=== PATIENT | female | born 1970 ===

== ENCOUNTER → 2020-07-14 12:03 | Outpatient (BNVA) | payer BC, SELFPAY | PROVIDERS: PCP Internal Medicine Geriatric Medicine; Referring Provider Internal Medicine Geriatric Medicine; Visit Provider Obstetrics & Gynecology | DX: Z76.89 Persons encountering health services in other specified circumstances (principal) ==

== ENCOUNTER → 2020-12-31 09:56 | Outpatient (BNVA) | payer BC, SELFPAY | PROVIDERS: PCP Internal Medicine Geriatric Medicine; Visit Provider Advanced Practice Midwife ==

== ENCOUNTER 2021-05-15 07:09 | Outpatient (REF) | payer BC, SELFPAY ==
[2021-05-15 07:38] LABS: Hematocrit 37.1 % (37-47); Hemoglobin 12.8 g/dl (12.0-16.0); Mean Corpuscular HGB Conc 34.5 g/dl (31.0-35.0); Mean Corpuscular Hemoglobin 31.2 pg (27.0-33.0); Mean Corpuscular Volume 90.5 fL (80-98); Mean Platelet Volume 10.3 fL (9.4-12.3); Platelet Count 187 X10*3/uL (160-400); Red Cell Distribution Width 11.7 % (11.0-16.0)
[2021-05-15 08:21] LABS: Alanine Aminotransferase 12 U/L (0-31); Albumin Level 4.2 g/dL (3.5-5.0); Alkaline Phosphatase 43 U/L (39-117); Anion Gap 14 (12-20); Aspartate Amino Transferase 12 U/L (5-31); Bilirubin Total 0.7 mg/dL (0.0-1.0); Blood Urea Nitrogen 15 mg/dL (9-16); Carbon Dioxide 23 mmol/L (22-29); Chloride 107 mmol/L (96-108); Cholesterol 163 mg/dL; Estimated Glomerular Filt Rate > 60; Glucose Random 98 mg/dL (60-115); HDL Cholesterol 54 mg/dL; Potassium 4.5 mmol/L (3.3-5.1); Sodium 139 mmol/L (135-145); Total Protein 6.8 g/dL (6.5-8.0)
[2021-05-15 08:25] LABS: LDL Cholesterol Calculated 99 mg/dl; Triglycerides 50 mg/dL
[2021-05-18 22:22] LABS: Protein S Activity rflx Tot&Fr 78 % (60-140)
== END 2021-05-15 07:10 | disposition home or self-care (01) ==
LOC: HO.LAB 07:09
PROVIDERS: PCP Internal Medicine Geriatric Medicine; Visit Provider Internal Medicine Geriatric Medicine
DX: Z00.00 Encounter for general adult medical examination without abnormal findings (principal); Z13.1 Encounter for screening for diabetes mellitus; Z13.220 Encounter for screening for lipoid disorders; Z83.2 Family history of diseases of the blood and blood-forming organs and certain disorders involving the immune mechanism
CPT/HCPCS: 36415; 80053; 80061; 85027; 85305; 85306

== ENCOUNTER → 2022-01-01 08:03 | Outpatient (BNVA) | payer BC, SELFPAY | PROVIDERS: PCP Internal Medicine Geriatric Medicine; Visit Provider Advanced Practice Midwife | DX: Z13.89 Encounter for screening for other disorder (principal) ==

== ENCOUNTER → 2023-01-07 08:00 | Outpatient (BNVA) | payer BC, SELFPAY | PROVIDERS: PCP Internal Medicine Geriatric Medicine; Visit Provider Advanced Practice Midwife | DX: Z13.89 Encounter for screening for other disorder (principal) ==

== ENCOUNTER 2023-01-20 10:40 | Outpatient (REF) | payer BC, SELFPAY ==
--- NOTE | ~2023-01-20 | US_ITS ---
EXAMINATION: US PELVIS COMPLETE CLINICAL INFORMATION: Multiple uterine fibroids; the patient is currently having her menstrual period. COMPARISON: Pelvic ultrasound dated 06/11/2020. TECHNIQUE: Transabdominal and transvaginal imaging were performed. FINDINGS: The uterus is of normal size and echogenicity, measuring 11.6 x 5.6 x 7.3 cm. The uterus is anteverted and anteflexed. A regular, homogeneous endometrium is identified measuring 0.6 cm. FIBROIDS: There are 5 dominant fibroids seen. 1. Location: Rightward body, myometrial. Size: 2.6 x 2.1 x 2.9 cm. Prior: Not seen. Fibroid characteristics: Hypoechoic 2. Location: Anterior fundus, myometrial. Size: 2.4 x 2.4 x 2.5 cm. Prior: 1.5 x 1.1 x 1.3 cm. Fibroid characteristics: Isoechoic 3. Location: Posterior body, subendometrial. Size: 1.8 x 1.9 x 1.9 cm. Prior: Not seen. Fibroid characteristics: Heterogeneous echotexture, with shadowing calcifications 4. Location: Posterior lower body, myometrial. Size: 2.1 x 1.7 x 1.3 cm. Prior: 1.6 x 1.3 x 1.5 cm. Fibroid characteristics: Heterogeneously hypoechoic 5. Location: Leftward body, subserosal. Size: 1.4 x 1.6 x 1.4 cm. Prior: 1.2 x 1.1 x 1.3 cm. Fibroid characteristics: Heterogeneous echotexture The right ovary is nonvisualized. The left ovary is normal in echotexture, measuring 7.2 x 3.9 x 4.7 cm for a volume of 69.1 mL. The left ovary contains a 5.7 x 3.3 x 3.3 cm lobulated, simple cyst. There is no pelvic free fluid. US/US pelvic and transvaginal IMPRESSION: 1. Multiple uterine fibroids are seen, as detailed. 2. The right ovary is not visualized. 3. A 5.7 cm in maximal diameter simple, lobulated right ovarian cyst is newly seen. Recommend repeat ultrasound examination in 6-12 months for growth rate assessment.
== END 2023-01-20 10:41 | disposition home or self-care (01) ==
LOC: HO.US 10:40
PROVIDERS: PCP Internal Medicine Geriatric Medicine; Visit Provider Advanced Practice Midwife
DX: Z86.018 Personal history of other benign neoplasm (principal)
CPT/HCPCS: 76830; 76856

== ENCOUNTER 2023-01-28 08:49 | Outpatient (REF) | payer BC, SELFPAY ==
--- NOTE | ~2023-01-28 | XR_ITS ---
EXAMINATION: XR SHOULDER, RIGHT CLINICAL INFORMATION: Pain. COMPARISON: None available. TECHNIQUE: AP external rotation, Grashey, scapular Y, and axillary views of the right shoulder. FINDINGS: Bony alignment and mineralization are normal. The glenohumeral joint is intact. The acromioclavicular and coracoclavicular intervals are normal. Small, well marginated subcortical cysts are noted of the greater tuberosity of the proximal right humerus. No fracture or dislocation is seen. There is no abnormal soft tissue calcifications or foreign body. No right pneumothorax is seen. XR/XR shoulder RT min 2V IMPRESSION: Unremarkable right shoulder.
== END 2023-01-28 08:50 | disposition home or self-care (01) ==
LOC: HO.XRAY 08:49
PROVIDERS: PCP Internal Medicine Geriatric Medicine; Visit Provider Registered Nurse
DX: M25.551 Pain in right hip (principal); M25.611 Stiffness of right shoulder, not elsewhere classified
CPT/HCPCS: 73030

== ENCOUNTER → 2023-01-31 07:57 | Outpatient (BNVA) | payer BC, SELFPAY | PROVIDERS: PCP Internal Medicine Geriatric Medicine; Visit Provider Advanced Practice Midwife ==

== ENCOUNTER 2023-05-05 11:10 | Outpatient (REF) | payer BC, SELFPAY ==
--- NOTE | ~2023-05-05 | MR_ITS ---
EXAMINATION: MR SHOULDER WITHOUT CONTRAST, RIGHT CLINICAL INFORMATION: Right shoulder pain and decreased range of motion. COMPARISON: Right shoulder radiographs dated 01/28/2023. TECHNIQUE: MRI of the shoulder without contrast was performed on a high-field scanner. FINDINGS: ROTATOR CUFF: Mental tendinosis versus fraying along the distal aspect of the junctional fibers measuring up to 0.8 cm in ML dimension. No full-thickness rotator cuff tendon tear. No muscle atrophy or fatty infiltration. BICEPS: Intact. CORACOACROMIAL ARCH: The undersurface of the acromion is minimally curved with small subchondral spurs. Moderate acromioclavicular osteoarthritis. LABRUM/CAPSULE: No displaced labral tear. Intact joint capsule. GLENOHUMERAL JOINT/MARROW: Intact articular cartilage. No acute osseous injury. Degenerative cystic change within the lesser tuberosity. MR/MR shoulder RT wo con IMPRESSION: 1. Supraspinatus tendinosis versus fraying along the articular surface measuring 0.8 cm in ML dimension. No full-thickness rotator cuff tendon tear. 2. Moderate acromioclavicular osteoarthritis with small subchondral spurs. 3. No displaced labral tear.
== END 2023-05-05 11:11 | disposition home or self-care (01) ==
LOC: HO.MRI 11:10
PROVIDERS: PCP Internal Medicine Geriatric Medicine; Visit Provider Registered Nurse
DX: M25.511 Pain in right shoulder (principal); M25.611 Stiffness of right shoulder, not elsewhere classified; G89.29 Other chronic pain
CPT/HCPCS: 73221

== ENCOUNTER 2023-05-10 10:56 | Outpatient (REF) | payer BC, SELFPAY ==
--- NOTE | ~2023-05-10 | US_ITS ---
EXAMINATION: US PELVIS COMPLETE CLINICAL INFORMATION: History of ovarian cysts; the last menstrual period was one week prior. COMPARISON: Pelvic ultrasound dated 01/20/2023. TECHNIQUE: Transabdominal and transvaginal imaging were performed. FINDINGS: The uterus is of normal size and echogenicity, measuring 11.8 x 4 0.90, 7.5 cm. The uterus is anteverted and anteflexed. A regular, homogeneous endometrium is identified measuring 0.5 cm. Nabothian cysts are seen within the cervix. FIBROIDS: There are 5 fibroids seen. 1. Location: Rightward mid body, myometrial. Size: 2.7 x 2.5 x 2.3 cm. Prior: 2.6 x 2.1 x 2.9 cm. Fibroid characteristics: Heterogeneous echotexture. 2. Location: Anterior fundus, myometrial. Size: 2.7 x 2.5 x 2.1 cm. Prior: 2.4 x 2.4 x 2.5 cm. Fibroid characteristics: Heterogeneously hypoechoic. 3. Location: Posterior upper body, myometrial. Size: 2.0 x 1.9 x 1.7 cm. Prior: 1.8 x 1.9 x 1.9 cm. Fibroid characteristics: Heterogeneous echotexture. 4. Location: Posterior lower body, myometrial. Size: 1.6 x 1.8 x 1.3 cm. Prior: 2.1 x 1.7 x 1.3 cm. Fibroid characteristics: Heterogeneously hypoechoic. 5. Location: Leftward lower body, myometrial. Size: 1.6 x 1.9 x 1.6 cm. Prior: 1.4 x 1.6 x 1.4 cm. Fibroid characteristics: Heterogeneous echotexture. Both ovaries are of normal echotexture and show normal Doppler flow. The right ovary measures 2.5 x 1.6 x 1.5 cm for a volume of 3.1 mL. The left ovary measures 5.6 x 3.1 x 5.1 cm for a volume of 46.3 mL. The left ovary contains 4.0 x 2.7 x 4.1 cm and 4.1 x 2.3 x 2.7 cm benign, simple cysts. These require no imaging follow-up. There is no pelvic free fluid. No adnexal mass is seen. US/US pelvic and transvaginal IMPRESSION: 1. 4.1 cm and 4.1 cm in maximal diameter benign, simple left ovarian cysts are presently seen. These require no imaging follow-up. 2. Multiple uterine fibroids are redemonstrated. 3. Nabothian cysts are seen within the cervix.
== END 2023-05-10 10:57 | disposition home or self-care (01) ==
LOC: HO.US 10:56
PROVIDERS: PCP Internal Medicine Geriatric Medicine; Visit Provider Advanced Practice Midwife
DX: N83.209 Unspecified ovarian cyst, unspecified side (principal)
CPT/HCPCS: 76830; 76856

== ENCOUNTER 2023-05-26 07:31 | Outpatient (REF) | payer BC, SELFPAY ==
--- NOTE | ~2023-05-26 | MM_ITS ---
EXAMINATION: MM SCREENING DIGITAL BREAST TOMOSYNTHESIS, BILATERAL CLINICAL INFORMATION: Screening. Asymptomatic. COMPARISON: Mammography: 05/11/2021, 04/29/2020, 04/24/2020, 12/05/2018 ([facility]) TECHNIQUE: Digital breast tomosynthesis is performed in both the craniocaudal and mediolateral oblique views along with computer-aided detection (CAD). Synthesized 2D images are generated from the tomosynthesis. FINDINGS: There are scattered areas of fibroglandular density (ACR BI-RADS breast composition Category b). There is a 1 view asymmetry seen in the posterior aspect of the left breast on the MLO projection only, posterior one third, which localizes along the nipple line, and on tomography localizes laterally. Recommend diagnostic views to include exaggerated left CC 3-D view, as well as 3-D left MLO view, and spot compression 3-D left MLO view. Ultrasound could be considered as requested by the reading radiologist. There are no suspicious findings in the right breast. MM/MM tomosynthesis screening BI IMPRESSION: 1 view asymmetry posterior left breast MLO view only as detailed. Diagnostic views recommended. ASSESSMENT: BI-RADS BI-RADS 0 - Incomplete: Needs additional Imaging. RECOMMENDATION: 1. Additional views of the left breast. 2. Targeted left ultrasound if warranted after review of the additional views. 3. Radiology department staff will contact the patient for additional imaging. Additional Imaging required This examination should not preclude the clinical evaluation of a suspicious palpable abnormality.
== END 2023-05-26 07:32 | disposition home or self-care (01) ==
LOC: HO.MAMMO 07:31
PROVIDERS: PCP Registered Nurse; Visit Provider Advanced Practice Midwife
DX: Z12.31 Encounter for screening mammogram for malignant neoplasm of breast (principal)
CPT/HCPCS: 77063; 77067

== ENCOUNTER → 2023-05-26 07:45 | Outpatient (BNV) | payer BC, SELFPAY | PROVIDERS: PCP Registered Nurse; Visit Provider Radiology Diagnostic Radiology | DX: Z12.31 Encounter for screening mammogram for malignant neoplasm of breast (principal) | CPT/HCPCS: 77063; 77067 ==

== ENCOUNTER 2023-05-31 10:31 | Outpatient (AMB) | payer BC, SELFPAY ==
[2023-05-31 10:35] VITALS: BP 102/66; BMI 33.3
--- NOTE | 2023-05-31 10:35 | A.OFFVIS_ITS ---
Intake Vital Signs 05/31/23 10:35 Height 5 ft 5 in Weight 200 lb BMI 33.3 BP 102/66 Intake Visit Reasons: Ultrasound follow up Intake Note: The patient agreed to use of a medical anthropology director during this encounter. Scribed for EDWIN Del Rosario by Madai Gupta medical anthropology director, on 05/31/2023 at 11:07 am EST. Allergies penicillin G Allergy (Unknown, Verified 05/31/23 10:35) hives HPI HPI Comments History of Present Illness Details She is here to discuss US results regarding history of ovarian cysts. Reports her menses has was skipping a few months at a time, and now is monthly lasting 2-7 days. Denies pelvic pain or urinary symptoms. Admits hot flashes. Reports lower back pain, and she has upcoming AG with PCP and plans to discuss this with them. 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 Sexual orientation: Straight/Heterosexual Gender identity: Female Female Reproductive History Menstrual Age of Menarche: 12 Physical Exam Vital Signs: Last Vital Signs BP 102/66 05/31/23 10:35 BMI result Body Mass Index 33.3 Const General: cooperative, healthy appearing, comfortable, no acute distress, well developed, alert and awake Results Reviewed Results Reviewed: Date of Service: 05/10/23 Procedure(s): US pelvic and transvaginal Accession Number(s): [id number] cc: Michelle Joyce CNM~ EXAMINATION: US PELVIS COMPLETE CLINICAL INFORMATION: History of ovarian cysts; the last menstrual period was one week prior. COMPARISON: Pelvic ultrasound dated 01/20/2023. TECHNIQUE: Transabdominal and transvaginal imaging were performed. FINDINGS: The uterus is of normal size and echogenicity, measuring 11.8 x 4 0.90, 7.5 cm. The uterus is anteverted and anteflexed. A regular, homogeneous endometrium is identified measuring 0.5 cm. Nabothian cysts are seen within the cervix. FIBROIDS: There are 5 fibroids seen. 1. Location: Rightward mid body, myometrial. Size: 2.7 x 2.5 x 2.3 cm. Prior: 2.6 x 2.1 x 2.9 cm. Fibroid characteristics: Heterogeneous echotexture. 2. Location: Anterior fundus, myometrial. Size: 2.7 x 2.5 x 2.1 cm. Prior: 2.4 x 2.4 x 2.5 cm. Fibroid characteristics: Heterogeneously hypoechoic. 3. Location: Posterior upper body, myometrial. Size: 2.0 x 1.9 x 1.7 cm. Prior: 1.8 x 1.9 x 1.9 cm. Fibroid characteristics: Heterogeneous echotexture. 4. Location: Posterior lower body, myometrial. Size: 1.6 x 1.8 x 1.3 cm. Prior: 2.1 x 1.7 x 1.3 cm. Fibroid characteristics: Heterogeneously hypoechoic. 5. Location: Leftward lower body, myometrial. Size: 1.6 x 1.9 x 1.6 cm. Prior: 1.4 x 1.6 x 1.4 cm. Fibroid characteristics: Heterogeneous echotexture. Both ovaries are of normal echotexture and show normal Doppler flow. The right ovary measures 2.5 x 1.6 x 1.5 cm for a volume of 3.1 mL. The left ovary measures 5.6 x 3.1 x 5.1 cm for a volume of 46.3 mL. The left ovary contains 4.0 x 2.7 x 4.1 cm and 4.1 x 2.3 x 2.7 cm benign, simple cysts. These require no imaging follow-up. There is no pelvic free fluid. No adnexal mass is seen. US/US pelvic and transvaginal IMPRESSION: 1. 4.1 cm and 4.1 cm in maximal diameter benign, simple left ovarian cysts are presently seen. These require no imaging follow-up. 2. Multiple uterine fibroids are redemonstrated. 3. Nabothian cysts are seen within the cervix. Date of Service: 01/20/23 Procedure(s): US pelvic and transvaginal Accession Number(s): [id number] cc: Michelle Joyce CNM~ ADDENDUMADDENDUM:CORRECTION: IMPRESSION: 3. A 5.7 cm in maximal diameter simple, lobulated LEFT ovarian cyst is newly seen. Recommend repeat ultrasound examination in 6-12 months for growth rate assessment. EXAMINATION: US PELVIS COMPLETE CLINICAL INFORMATION: Multiple uterine fibroids; the patient is currently having her menstrual period. COMPARISON: Pelvic ultrasound dated 06/11/2020. TECHNIQUE: Transabdominal and transvaginal imaging were performed. FINDINGS: The uterus is of normal size and echogenicity, measuring 11.6 x 5.6 x 7.3 cm. The uterus is anteverted and anteflexed. A regular, homogeneous endometrium is identified measuring 0.6 cm. FIBROIDS: There are 5 dominant fibroids seen. 1. Location: Rightward body, myometrial. Size: 2.6 x 2.1 x 2.9 cm. Prior: Not seen. Fibroid characteristics: Hypoechoic 2. Location: Anterior fundus, myometrial. Size: 2.4 x 2.4 x 2.5 cm. Prior: 1.5 x 1.1 x 1.3 cm. Fibroid characteristics: Isoechoic 3. Location: Posterior body, subendometrial. Size: 1.8 x 1.9 x 1.9 cm. Prior: Not seen. Fibroid characteristics: Heterogeneous echotexture, with shadowing calcifications 4. Location: Posterior lower body, myometrial. Size: 2.1 x 1.7 x 1.3 cm. Prior: 1.6 x 1.3 x 1.5 cm. Fibroid characteristics: Heterogeneously hypoechoic 5. Location: Leftward body, subserosal. Size: 1.4 x 1.6 x 1.4 cm. Prior: 1.2 x 1.1 x 1.3 cm. Fibroid characteristics: Heterogeneous echotexture The right ovary is nonvisualized. The left ovary is normal in echotexture, measuring 7.2 x 3.9 x 4.7 cm for a volume of 69.1 mL. The left ovary contains a 5.7 x 3.3 x 3.3 cm lobulated, simple cyst. There is no pelvic free fluid. US/US pelvic and transvaginal IMPRESSION: 1. Multiple uterine fibroids are seen, as detailed. 2. The right ovary is not visualized. 3. A 5.7 cm in maximal diameter simple, lobulated right ovarian cyst is newly seen. Recommend repeat ultrasound examination in 6-12 months for growth rate assessment. Assessment & Plan Assessment & Plan (1) Encounter to discuss test results: Code(s): Z71.2 - Person consulting for explanation of examination or test findings Plan: Discussed: 1. 4.1 cm and 4.1 cm in maximal diameter benign, simple left ovarian cysts are presently seen. These require no imaging follow-up. 2. Multiple uterine fibroids are redemonstrated. 3. Nabothian cysts are seen within the cervix; smaller compared to May US. All of her questions and concerns were addressed to the best of my ability and shared decision making. She is agreeable to plan of care. (2) Ovarian cyst: Code(s): N83.209 - Unspecified ovarian cyst, unspecified side Plan: Expectant management follow up in 6 months, then yearly for stability. (3) Odris-menopause: Code(s): N95.1 - Menopausal and female climacteric states Plan: Report any pelvic pressure, bloating, or pain. Counseled re: perimenopause vs menopause. Monitor periods, report any unscheduled bleeding, bleeding episodes less than 21 days apart or heavy prolonged menstrual bleeding. (4) Hot flashes: Code(s): R23.2 - Flushing Plan: Counseled on hot flashes. (5) Fibroid: Comment: Stable, monitor yearly, unless and concerns: pain, pressure, bloating, cycles pattern changes with increase, prolonged or closely spaced <21d. Code(s): D21.9 - Benign neoplasm of connective and other soft tissue, unspecified Coding Level of Care Code Est Pt Level 3 (62980) Diagnoses Encounter to discuss test results Z71.2 Ovarian cyst N83.209 Doris-menopause N95.1 Hot flashes R23.2 Fibroid D21.9
== END 2023-05-31 12:27 | disposition home or self-care (01) ==
PROVIDERS: Visit Provider Advanced Practice Midwife
DX: Z71.2 Person consulting for explanation of examination or test findings (principal); N83.209 Unspecified ovarian cyst, unspecified side; N95.1 Menopausal and female climacteric states; R23.2 Flushing; D21.9 Benign neoplasm of connective and other soft tissue, unspecified
CPT/HCPCS: 99213

== ENCOUNTER → 2023-05-31 10:31 | Outpatient (BNVA) | payer BC, SELFPAY | PROVIDERS: Visit Provider Advanced Practice Midwife ==

== ENCOUNTER 2023-07-04 14:57 | Outpatient (REF) | payer BC, SELFPAY ==
--- NOTE | ~2023-07-04 | MM_ITS ---
EXAMINATION: MM DIAGNOSTIC DIGITAL BREAST TOMOSYNTHESIS, LEFT CLINICAL INFORMATION: Evaluate one view asymmetry seen posterior aspect left breast on the MLO projection only COMPARISON: Mammography: 05/26/2023, 04/24/2020, and outside studies from [facility] 05/11/2021 and 12/05/2018. TECHNIQUE: Digital breast tomosynthesis is performed in the following views; full-field 3-D left mediolateral view, full field 3-D digital left exaggerated lateral CC projection, and 3-D spot compression left MLO view. FINDINGS: The breasts are heterogeneously dense, which may obscure small masses (ACR BI-RADS breast composition Category c). The 1 view asymmetry on the left MLO view, posterior one third along the nipple line does not persist on diagnostic views and is consistent with summation artifact/overlapping fibroglandular tissues. There is no persistent suspicious abnormality in the left breast including no suspicious developing mass, suspicious calcifications, or developing areas of architectural distortion to suggest malignancy. There are no skin or axillary changes. MM/MM tomosynthesis diagnostic LT IMPRESSION: There are no persistent findings suspicious for malignancy in the left breast. Recommend the patient return to routine annual screening. ASSESSMENT: BI-RADS BI-RADS 1 - Negative RECOMMENDATION: 1 year F/U Results were provided to the patient at time of visit by the technologist. This patient's information was entered into a reminder system with a target due date for their next mammogram.
== END 2023-07-04 14:58 | disposition home or self-care (01) ==
LOC: HO.MAMMO 14:57
PROVIDERS: PCP Registered Nurse; Visit Provider Registered Nurse
DX: N64.89 Other specified disorders of breast (principal)
CPT/HCPCS: 77061; 77065

== ENCOUNTER → 2023-07-04 15:00 | Outpatient (BNV) | payer BC, SELFPAY | PROVIDERS: PCP Registered Nurse; Visit Provider Radiology Diagnostic Radiology | DX: R92.332 Mammographic heterogeneous density, left breast (principal) | CPT/HCPCS: 77061; 77065 ==

== ENCOUNTER 2023-07-07 09:16 | Outpatient (AMB) | payer BC, SELFPAY ==
--- NOTE | 2023-07-07 09:24 | A.OFFVIS_ITS ---
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 States pain started about 1.5 yr ago after closing a window. Pain was severe, states she tried P.T with good relief and has improved since. Currently has working out at [employer]. She states that she has noticed some improvement in her range of motion and discomfort. She denies any weakness. She has also gotten massages which helped significantly. 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 Sexual orientation: Straight/Heterosexual Gender identity: Female Female Reproductive History Menstrual Age of Menarche: 12 Physical Exam Vital Signs: BMI result Body Mass Index 32.3 Const Other: Well-nourished well-developed very friendly female awake alert and oriented x3 in no acute distress Extrem Other: Bilateral upper extremity examination shows good capillary refill, no skin lesions noted, normal sensation light touch Right shoulder examination shows slightly decreased motion when compared to her left shoulder, 5/5 strength with supraspinatus testing, positive impingement signs, tenderness over her acromioclavicular joint, no instability Results Reviewed Results Reviewed: MRI of the patient's right shoulder shows severe acromioclavicular joint narrowing, a type 2 acromion, signal change within the supraspinatus tendon most likely due to rotator cuff tendinosis Assessment & Plan Assessment & Plan (1) Right shoulder pain: Code(s): M25.511 - Pain in right shoulder Plan: Ms. Saroj Montano presents with intermittent right shoulder discomfort most likely due to impingement syndrome and rotator cuff tendinosis. I had a lengthy discussion with the patient regarding the treatment options. At this point the patient's symptoms are improving with her range of motion exercises. We will hold off on a cortisone injection. The do's and don'ts of lifting were discussed at length with the patient. She will follow up with me on an as- needed basis should her symptoms worsen in any way. Feel free to call me at any time should questions regarding her orthopedic management arise. Thank you very much for asking me to see this very friendly patient. I spent 20 minutes in reviewing the patient's records and imaging studies, seeing the patient and documenting in the medical record. Coding Level of Care Code New Pt Level 2 (05837) Diagnoses Right shoulder pain M25.511
[2023-07-07 09:25] VITALS: BMI 32.3
== END 2023-07-07 09:40 | disposition home or self-care (01) ==
PROVIDERS: PCP Registered Nurse; Visit Provider Orthopaedic Surgery
DX: M25.511 Pain in right shoulder (principal)
CPT/HCPCS: 99202

== ENCOUNTER → 2023-07-07 09:16 | Outpatient (BNVA) | payer BC, SELFPAY | PROVIDERS: PCP Registered Nurse; Visit Provider Orthopaedic Surgery ==

== ENCOUNTER 2023-07-22 08:41 | Outpatient (REF) | payer BC, SELFPAY ==
[2023-07-22 11:16] LABS: MANUAL DIFF FLAG NO
[2023-07-22 11:25] LABS: Basophils Percent Auto 0.8 % (0-2); Eosinophils Absolute Auto 0.1 X10*3/uL (0.0-0.4); Eosinophils Percent Auto 1.3 % (0-4); Hematocrit 36.2 % (37.0-47.0); Hemoglobin 12.1 g/dl (12.0-16.0); Imm Gran Abs Auto 0.02 X10*3/uL (0.00-0.03); Imm Gran Pct Auto 0.4 % (0.0-0.4); Lymphocytes Absolute Auto 1.4 X10*3/uL (1.2-4.9); Lymphocytes Percent Auto 26.3 % (20-40); Mean Corpuscular HGB Conc 33.4 g/dl (31.0-35.0); Mean Corpuscular Hemoglobin 30.7 pg (27.0-33.0); Mean Corpuscular Volume 91.9 fL (80.0-98.0); Mean Platelet Volume 11.5 fL (9.4-12.3); Monocytes Absolute Auto 0.4 X10*3/uL (0.1-1.2); Neutrophils Absolute Auto 3.4 x10*3/uL (2.0-8.3); Neutrophils Percent Auto 64.2 % (45-73); Platelet Count 211 X10*3/uL (160-400); Red Blood Count 3.94 X10*6/uL (4.20-5.50); White Blood Count 5.3 X10*3/uL (4.8-10.8)
[2023-07-22 12:15] LABS: Alanine Aminotransferase 12 U/L (0-31); Albumin Level 4.1 g/dL (3.5-5.0); Alkaline Phosphatase 47 U/L (39-117); Anion Gap 9 (12-20); Aspartate Amino Transferase 14 U/L (5-31); Bilirubin Total 0.7 mg/dL (0.0-1.0); Blood Urea Nitrogen 16 mg/dL (9-16); Carbon Dioxide 26 mmol/L (22-29); Chloride 107 mmol/L (96-108); Cholesterol 177 mg/dL (<200); Estimated Glomerular Filt Rate > 60; Glucose Random 93 mg/dL (60-115); HDL Cholesterol 51 mg/dL (>40); LDL Cholesterol Calculated 114 mg/dL (<100); Potassium 4.4 mmol/L (3.3-5.1); Sodium 138 mmol/L (135-145); TSH reflex Free T4 1.82 uIU/mL (0.32-4.0); Total Protein 6.9 g/dL (6.5-8.0); Triglycerides 62 mg/dL (<150)
[2023-07-25 05:07] LABS: ~HepC Num1 0.06 S/CO (0.00-0.79); ~Hepatitis C Antibody Nonreactive (Nonreactive)
== END 2023-07-22 08:42 | disposition home or self-care (01) ==
LOC: HO.HHCL 08:41
PROVIDERS: Visit Provider Internal Medicine Geriatric Medicine
DX: Z00.00 Encounter for general adult medical examination without abnormal findings (principal); Z13.1 Encounter for screening for diabetes mellitus; Z11.59 Encounter for screening for other viral diseases; Z13.220 Encounter for screening for lipoid disorders; N83.209 Unspecified ovarian cyst, unspecified side; D25.9 Leiomyoma of uterus, unspecified; R63.5 Abnormal weight gain; J32.9 Chronic sinusitis, unspecified
CPT/HCPCS: 36415; 80053; 80061; 84443; 85025; 86803

== ENCOUNTER 2023-11-24 10:26 | Outpatient (REF) | payer BC, SELFPAY ==
--- NOTE | ~2023-11-24 | XR_ITS ---
EXAMINATION: XR LUMBAR SPINE XR RIGHT HIP CLINICAL INFORMATION: Three (3) months of low back pain with radiation to right thigh. 3-4 months of anterior right hip pain, worse when walking. Low back pain radiating down right thigh for 3 months. COMPARISON: None TECHNIQUE: 2 views of the right hip. 6 views of the lumbar spine. FINDINGS: RIGHT HIP: Limited visualization due to body habitus. Alignment preserved. Small radiodense device projects over the lateral aspect of the superior pubic ramus on the AP view and over the right femoral neck/intertrochanteric region on the lateral view and is of indeterminate etiology. Correlation with clinical exam recommended to determine if this is external to the patient versus internal. Mild degenerative changes in the right hip. LUMBAR SPINE: Mild rightward curvature of the lumbar spine. Punctate radiodensities overlying the left upper quadrant, possibly representing ingested material. Asymmetric degenerative changes with sclerosis in the left sacroiliac joint greater than right. Partially imaged sclerotic focus overlying the right iliac bone should be evaluated with dedicated views of the pelvis. Smaller sclerotic focus overlying the L5 vertebral body on the lateral view was less conspicuous on additional views. Facet arthritis in the [id number] lumbar spine. Moderate multilevel lumbar spondylosis with moderate loss of disc space height at L4-L5 and L5-S1. Grade 1 retrolisthesis of L3 on L4. XR/XR lumbar spine 4V min IMPRESSION: 1. Mild degenerative changes in the right hip. 2. Moderate multilevel lumbar spondylosis with moderate loss of disc space height at L4-L5 and L5-S1. 3. Incompletely imaged sclerotic focus overlying the right iliac bone should be evaluated with dedicated views of the pelvis. 4. Facet arthritis in the [id number] lumbar spine.
--- NOTE | ~2023-11-24 | XR_ITS ---
EXAMINATION: XR LUMBAR SPINE XR RIGHT HIP CLINICAL INFORMATION: Three (3) months of low back pain with radiation to right thigh. 3-4 months of anterior right hip pain, worse when walking. Low back pain radiating down right thigh for 3 months. COMPARISON: None TECHNIQUE: 2 views of the right hip. 6 views of the lumbar spine. FINDINGS: RIGHT HIP: Limited visualization due to body habitus. Alignment preserved. Small radiodense device projects over the lateral aspect of the superior pubic ramus on the AP view and over the right femoral neck/intertrochanteric region on the lateral view and is of indeterminate etiology. Correlation with clinical exam recommended to determine if this is external to the patient versus internal. Mild degenerative changes in the right hip. LUMBAR SPINE: Mild rightward curvature of the lumbar spine. Punctate radiodensities overlying the left upper quadrant, possibly representing ingested material. Asymmetric degenerative changes with sclerosis in the left sacroiliac joint greater than right. Partially imaged sclerotic focus overlying the right iliac bone should be evaluated with dedicated views of the pelvis. Smaller sclerotic focus overlying the L5 vertebral body on the lateral view was less conspicuous on additional views. Facet arthritis in the [id number] lumbar spine. Moderate multilevel lumbar spondylosis with moderate loss of disc space height at L4-L5 and L5-S1. Grade 1 retrolisthesis of L3 on L4. XR/XR hip RT min 2V IMPRESSION: 1. Mild degenerative changes in the right hip. 2. Moderate multilevel lumbar spondylosis with moderate loss of disc space height at L4-L5 and L5-S1. 3. Incompletely imaged sclerotic focus overlying the right iliac bone should be evaluated with dedicated views of the pelvis. 4. Facet arthritis in the [id number] lumbar spine.
== END 2023-11-24 10:27 | disposition home or self-care (01) ==
LOC: HO.HHCX 10:26
PROVIDERS: Visit Provider Internal Medicine Geriatric Medicine
DX: M25.551 Pain in right hip (principal); M54.50 Low back pain, unspecified
CPT/HCPCS: 72110; 73502

== ENCOUNTER 2023-12-06 09:12 | Outpatient (REF) | payer BC, SELFPAY ==
--- NOTE | ~2023-12-06 | XR_ITS ---
EXAMINATION: XR PELVIS CLINICAL INFORMATION: Sclerotic focus overlying the right iliac bone. COMPARISON: Right hip 11/24/2023 TECHNIQUE: AP view of the pelvis. FINDINGS: There is normal symmetry of bilateral hip joints and SI joints without any fracture, dislocation or bony erosive changes. Again visualized is a small radiopaque 3 mm density overlying the right hip joint/acetabulum. This is same density seen in the previous exam 11/24/2023. The soft tissues are normal. XR/XR pelvis 1-2V IMPRESSION: Small radiopaque density overlying the right hip joint is similar in size and position to same study. This may be a skin or subcutaneous calcification or artifact.
== END 2023-12-06 09:13 | disposition home or self-care (01) ==
LOC: HO.HHCX 09:12
PROVIDERS: Visit Provider Internal Medicine Geriatric Medicine
DX: R93.7 Abnormal findings on diagnostic imaging of other parts of musculoskeletal system (principal)
CPT/HCPCS: 72170

== ENCOUNTER 2024-01-25 15:09 | Outpatient (REF) | payer BC, SELFPAY ==
[2024-02-03 02:24] LABS: HPV mRNA E6/E7 rflx Not Detected (Not Detected)
== END 2024-01-25 15:10 | disposition home or self-care (01) ==
LOC: HO.LNP 15:09
PROVIDERS: PCP Internal Medicine Geriatric Medicine; Visit Provider Advanced Practice Midwife
DX: Z01.419 Encounter for gynecological examination (general) (routine) without abnormal findings (principal); Z11.51 Encounter for screening for human papillomavirus (HPV); D21.9 Benign neoplasm of connective and other soft tissue, unspecified
CPT/HCPCS: 87624; 88142

== ENCOUNTER 2024-01-25 15:09 | Outpatient (AMB) | payer BC, SELFPAY ==
[2024-01-25 15:25] VITALS: BP 100/66; BMI 29.9
--- NOTE | 2024-01-25 15:25 | MHC.OFFVIS ---
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 She is doing well with no concerns. LMP 04/2023. Hx. of multiple fibroids. Attempting to eat a healthy diet with calcium and vitamin D and stays active with exercise. Currently rarely sexually active. Denies any vaginal irritation. Admits to dryness. Tried Replens for a few weeks before stopping. STI testing offered; she declines. Last pap smear; 2018. Last mammogram; 2022. Colonoscopy is UTD. Denies any family history of breast, ovarian or colon cancer. 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 Sexual orientation: Straight/Heterosexual Gender identity: Female Female Reproductive History Menstrual Age of Menarche: 12 Total pregnancies: 1 Full term: 1 Number of Living Children: 1 Date of last pap smear: 06/21/19 (neg pap and hpv) Date of Mammogram: 07/04/23 (Birad 1) Review of Systems Const All systems reviewed & are unremarkable except as noted in HPI and below Reports as per HPI Eyes Reports no additional complaints ENT Reports no additional complaints Card Reports no additional complaints Resp Reports no additional complaints GI Reports as per HPI and Reports no additional complaints Reports as per HPI Musc Reports no additional complaints Skin/Breast Reports as per HPI Neuro Reports no additional complaints Psych Reports no additional complaints Endo Reports no additional complaints Mike/Lymph Reports no additional complaints Aller/Immun Reports no additional complaints Physical Exam Vital Signs: Last Vital Signs BP 100/66 01/25/24 15:25 BMI result Body Mass Index 29.9 Const General: cooperative, healthy appearing, no acute distress, well developed and alert Orientation/consciousness: patient oriented x3 HEENT Head: Yes normal to inspection Eyes General: appearance normal, both eyes and all related structures Neck Neck: Yes normal visual inspection Thyroid: Thyroid normal Chest Chest palpation & inspection: normal inspection of the chest and other (no puckering, dimpling, peau de orange, retraction, discharge, masses) Breast/axilla inspection: normal inspection of the breasts Breast/axilla palpation: normal palpation of the breasts Resp Effort & Inspection: normal respiratory effort GI Inspection: Yes normal to inspection Palpation (GI): Soft to palpation Rectal Exam - Female: deferred General: Yes bladder normal to palpation External Female Exam: normal external appearance and normal appearance of the urethra Speculum Exam - Vagina: normal appearance of the vagina, normal palpation and normal vaginal discharge Speculum Exam - Cervix: normal appearance of the cervix and normal palpation Bimanual exam- vagina & uterus: normal bimanual exam, normal palpation, uterine size normal, bladder normal to palpation, normal palpation and non-tender Bimanual Exam- Adnexa, other: no masses Skin General skin exam: no rashes or lesions noted Rashes: no rashes Neuro General: patient oriented x3 Cognition (Neuro): normal cognition Extrem General: Yes normal to inspection Psych Attitude: cooperative Thought process: Normal thought process present Assessment & Plan Assessment & Plan (1) Encounter for well woman exam with routine gynecological exam: Code(s): Z01.419 - Encounter for gynecological examination (general) (routine) without abnormal findings Category: Medical (2) Fibroid: Code(s): D21.9 - Benign neoplasm of connective and other soft tissue, unspecified Category: Medical Plan Discussed: Current recommendations for pap smears per ASCCP guidelines. Breast awareness, periodic self breast exams and yearly mammogram. Maintain a healthy lifestyle, well balanced diet including Calcium 1,200 mg and Vitamin D 600 IU daily, and routine exercise. Monitor bleeding pattern perimenopause versus menopause diagnosis reviewed, menopause after 12 months of no menses. If any abnormal bleeding patterns closely spaced periods are heavy prolonged bleeding occurs, pelvic pain, bloating significant pressure then notify the office immediately for further evaluation. Ultrasound in April for yearly check on stability, follow up appointment in person to discuss test results. Patient verbalizes understanding and agrees to the plan of care. She was given opportunity to ask questions and all questions were answered to the best of my ability. RTO in 1 year for annual access clinician exam. This note is constructed using voice recognition software. While every effort has been made to ensure accuracy, escalator operator errors may have been included. Orders: Orders Pap Smear Today Z01.419 - Encounter for gynecological examination (general) (routine) without abnormal findings US pelvic and transvaginal 04/30/24 D21.9 - Benign neoplasm of connective and other soft tissue, unspecified Coding Level of Care Code Est Pt Prev Care 40-64y(60935) Diagnoses Encounter for well woman exam with routine gynecological exam Z01.419 Fibroid D21.9
== END 2024-01-25 15:50 | disposition home or self-care (01) ==
LOC: HO.HWS 15:09
PROVIDERS: PCP Internal Medicine Geriatric Medicine; Visit Provider Advanced Practice Midwife
DX: Z01.419 Encounter for gynecological examination (general) (routine) without abnormal findings (principal); D21.9 Benign neoplasm of connective and other soft tissue, unspecified
CPT/HCPCS: 99396

== ENCOUNTER 2024-05-01 13:03 | Outpatient (REF) | payer BC, SELFPAY ==
--- NOTE | ~2024-05-01 | US_ITS ---
EXAM: Pelvic Ultrasound CLINICAL INDICATION: Uterine fibroids COMPARISON: Pelvic ultrasound May 10, 2023 TECHNIQUE: The pelvis was evaluated using transabdominal and transvaginal imaging. Color Doppler imaging and spectral analysis of the left ovary was also performed. FINDINGS: The uterus measures 8.8 x 4.9 x 7.2 cm in longitudinal by AP by transverse dimension. The endometrial stripe is not thickened and measures 0.4 cm. Numerous uterine fibroids are again noted, largest measuring approximately 2.4 cm. The left ovary measures approximately 5.8 x 2.8 x 4.7 cm and contains a few simple appearing cysts, the largest measuring approximately 4 cm. Spectral analysis reveals normal arterial and venous waveforms in the left ovary. The right ovary was not clearly visualized. There is no free fluid in the pelvis. US/US pelvic and transvaginal IMPRESSION: 1. Fibroid uterus. 2. Simple appearing left ovarian cysts. 3. Right ovary not clearly visualized. Electronically signed by: Tai Bunn MD 05/18/2024 07:03 AM EDT
== END 2024-05-01 13:04 | disposition home or self-care (01) ==
LOC: HO.US 13:03
PROVIDERS: PCP Internal Medicine Geriatric Medicine; Visit Provider Advanced Practice Midwife
DX: D21.9 Benign neoplasm of connective and other soft tissue, unspecified (principal)
CPT/HCPCS: 76830; 76856

== ENCOUNTER 2024-05-31 07:55 | Outpatient (REF) | payer BC, SELFPAY ==
--- NOTE | ~2024-05-31 | MM_ITS ---
EXAMINATION: MM SCREENING DIGITAL BREAST TOMOSYNTHESIS, BILATERAL CLINICAL INFORMATION: Screening. Asymptomatic. COMPARISON: Mammography: Comparison is made with available priors TECHNIQUE: Digital breast mammography with tomosynthesis is performed in both the craniocaudal and mediolateral oblique views along with computer-aided detection (CAD). FINDINGS: The breasts are heterogeneously dense, which may obscure small masses (ACR BI-RADS breast composition Category c). There are no significant masses, abnormal calcifications, or other abnormalities. MM/MM tomosynthesis screening BI IMPRESSION: No mammographic evidence of malignancy. ASSESSMENT: BI-RADS BI-RADS 1 - Negative RECOMMENDATION: Routine annual mammography screening. 1 year F/U This examination should not preclude the clinical evaluation of a suspicious palpable abnormality. This patient's information was entered into a reminder system with a target due date for their next mammogram. Electronically signed by: Yuni Sethi DO 06/13/2024 07:28 PM EDT
== END 2024-05-31 07:56 | disposition home or self-care (01) ==
LOC: HO.MAMMO 07:55
PROVIDERS: Absent Provider Advanced Practice Midwife; PCP Internal Medicine Geriatric Medicine; Visit Provider Internal Medicine Geriatric Medicine
DX: Z12.31 Encounter for screening mammogram for malignant neoplasm of breast (principal)
CPT/HCPCS: 77063; 77067

== ENCOUNTER → 2024-05-31 08:00 | Outpatient (BNV) | payer BC, SELFPAY | PROVIDERS: Absent Provider Advanced Practice Midwife; PCP Internal Medicine Geriatric Medicine; Visit Provider Internal Medicine | DX: Z12.31 Encounter for screening mammogram for malignant neoplasm of breast (principal) | CPT/HCPCS: 77063; 77067 ==

== ENCOUNTER 2024-06-19 15:44 | Outpatient (AMB) | payer BC, SELFPAY ==
--- NOTE | 2024-06-19 15:47 | MHC.OFFVIS ---
Vital Signs 06/19/24 15:50 BP 116/70 Intake Visit Reasons: US follow up/DO NOT RS Side Stapler: Side Stapler Present Allergies penicillin G Allergy (Unknown, Verified 06/19/24 15:47) hives Is last menstrual period known: Yes Last menstrual period: 02/06/24 HPI Comments Details: Patient is here today for a follow up pelvic ultrasound due to the history of multiple fibroids. She had gone 9 months this year without a cycle and had a menstrual cycle in January. She denies any pelvic bloating, she admits to an occasional right-sided pelvic pain, no left-sided pelvic pain, occasional back pain that radiates upward towards the right flank. Denies any injuries to her lower back. History of breast dense she is concerned and has a friend with recent diagnosis of breast cancer. She denies any family history of breast cancer. 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 Sexual orientation: Straight/Heterosexual Gender identity: Female Female Reproductive History Menstrual Age of Menarche: 12 Date of last menstrual period: 02/06/24 Review of Systems Const All systems reviewed & are unremarkable except as noted in HPI and below Endo Reports no additional complaints Physical Exam Vital Signs: Last Vital Signs BP 116/70 06/19/24 15:50 Const General: cooperative, healthy appearing and no acute distress Psych Appearance: well kempt Attitude: cooperative Thought process: Normal thought process present Results Reviewed Results Reviewed: [address] [address] Ultrasound Report Signed Patient: Genesis Wagner MR#: [id number] : 1970 Acct:[id number] Age/Sex: 54 / F ADM Date: 05/01/24 Loc: HO.US Attending Dr: Michelle Joyce CNM Ordering Physician: Michelle Joyce CNM Date of Service: 05/01/24 Procedure(s): US pelvic and transvaginal Accession Number(s): [id number] cc: Michelle Joyce CNM; Name,Brandon FUNEZ~ EXAM: Pelvic Ultrasound CLINICAL INDICATION: Uterine fibroids COMPARISON: Pelvic ultrasound May 10, 2023 TECHNIQUE: The pelvis was evaluated using transabdominal and transvaginal imaging. Color Doppler imaging and spectral analysis of the left ovary was also performed. FINDINGS: The uterus measures 8.8 x 4.9 x 7.2 cm in longitudinal by AP by transverse dimension. The endometrial stripe is not thickened and measures 0.4 cm. Numerous uterine fibroids are again noted, largest measuring approximately 2.4 cm. The left ovary measures approximately 5.8 x 2.8 x 4.7 cm and contains a few simple appearing cysts, the largest measuring approximately 4 cm. Spectral analysis reveals normal arterial and venous waveforms in the left ovary. The right ovary was not clearly visualized. There is no free fluid in the pelvis. US/US pelvic and transvaginal IMPRESSION: 1. Fibroid uterus. 2. Simple appearing left ovarian cysts. 3. Right ovary not clearly visualized. Electronically signed by: Tai Bunn MD 05/18/2024 07:03 AM EDT RP Dictated By: Tai Bunn MD Signed By: <Electronically signed by Tai Bunn MD in OV> 05/18/24 0703 DD/ 1321 TD/TT: 05/01/24 1335 Procedures Rn: PD Assessment & Plan Assessment & Plan (1) Fibroid: Comment: multiple Code(s): D21.9 - Benign neoplasm of connective and other soft tissue, unspecified Category: Medical Plan Discussed: Ultrasound findings-multiple fibroids, left ovarian cyst, right ovary limited views. Plan ultrasound follow up in 1 year proximally 05/08/2025 to check fibroids stability. Advised to call if there is any pain increased on the right or left pelvic region or any bleeding patterns less than 24 days apart or heavy prolonged bleeding episodes for sooner evaluation. Plan referral to Dr. An for breast surveillance and consult to discuss management of dense breasts. Menopause diagnosed after 12 consecutive months without a cycle. Annual exam scheduled in January of 2025 All of her questions and concerns were addressed to the best of my ability and shared decision making. She is agreeable to the plan of care. This note is constructed using voice recognition software. While every effort has been made to ensure accuracy, ocular care aide errors may have been included. Orders: Orders US pelvic and transvaginal 05/01/25 D21.9 - Benign neoplasm of connective and other soft tissue, unspecified Referrals Breast Surgery Referral R92.30 - Dense breasts, unspecified, Z01.419 - Encounter for gynecological examination (general) (routine) without abnormal findings Coding Level of Care Code Est Pt Level 3 (28142) Diagnoses Fibroid D21.9
[2024-06-19 15:50] VITALS: BP 116/70
== END 2024-06-19 16:18 | disposition home or self-care (01) ==
PROVIDERS: PCP Registered Nurse; Visit Provider Advanced Practice Midwife
DX: D21.9 Benign neoplasm of connective and other soft tissue, unspecified (principal)
CPT/HCPCS: 99213

== ENCOUNTER → 2024-06-19 15:44 | Outpatient (BNVA) | payer BC, SELFPAY | PROVIDERS: PCP Registered Nurse; Visit Provider Advanced Practice Midwife ==

== ENCOUNTER 2024-07-06 09:23 | Outpatient (AMB) | payer BC, SELFPAY ==
--- NOTE | 2024-07-06 09:33 | MHC.OFFVIS ---
Vital Signs 07/06/24 09:40 Height 5 ft 6 in Weight 180 lb 2 oz BMI 29.1 BP 119/56 L Blood Pressure Location Lt brachial Position Sitting Pulse 68 Intake Visit Reasons: Breast consult, dense breast Intake Note: Patient is seen in office for dense breast. Pt c/o: denies any concerns regarding the breast, no fm hx of breast cancer mm:05/31/24 ref [facility] Fee Appraiser Required: No Accompanied by: Self / Same As Patient Allergies penicillin G Allergy (Unknown, Verified 07/06/24 09:38) hives HPI Comments Details: 54-year-old perimenopausal female patient presenting for evaluation of dense breasts. She recently had a friend diagnosed with breast cancer with dense breasts and was concerned that she could have the same. Her last mammogram was performed on 05/31/2024 and revealed a breast density category of C. There was no mammographic evidence of malignancy (BI-RADS 1). She denies any palpable mass, nipple discharge or skin changes. She denies a previous history of breast surgery or breast cancer. Her family history is negative for breast cancer. She does self examinations but is unsure what she is feeling. 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 Sexual orientation: Straight/Heterosexual Gender identity: Female Female Reproductive History Menstrual Age of Menarche: 12 Date of last menstrual period: 01/18/24 Total pregnancies: 1 Number of Living Children: 1 Review of Systems Const All systems reviewed & are unremarkable except as noted in HPI and below Denies chills, Denies fever(s), Denies headache(s), Denies poor appetite and Denies weakness ENT Denies headache(s) Card Denies chest pain, Denies irregular heart rhythm, Denies palpitations and Denies dyspnea Resp Denies cough, Denies excessive phlegm production and Denies dyspnea GI Denies abdominal pain, Denies bloating, Denies change in bowel habits, Denies constipation, Denies heartburn, Denies diarrhea, Denies nausea and Denies vomiting Denies urinary frequency Musc Denies back pain, Denies muscle weakness and Denies numbness Skin/Breast Denies changing lesions and Denies unusual bruising Neuro Denies headache(s), Denies numbness, Denies paresthesias and Denies weakness Psych Denies anxiety and Denies depression Endo Denies palpitations Mike/Lymph Denies lymphadenopathy Physical Exam Const General: cooperative and no acute distress Nutritional Appearance: well nourished Orientation/consciousness: patient oriented x3 Limitations: no limitations HEENT Head: Yes normocephalic and Yes atraumatic Ears: hearing grossly normal bilaterally Chest Other: Bilateral extremely dense breasts Left breast: No skin change, no nipple retraction, no nipple discharge, no palpable mass, no enlarged lymph nodes. Right breast: No skin change, no nipple retraction, no nipple discharge, no palpable mass, no enlarged lymph nodes Resp Effort & Inspection: normal respiratory effort, no audible wheezes, no cough and no respiratory distress Cardio Jugular venous distension: no JVD GI Inspection: Yes normal to inspection Skin Other: Warm, dry, no rash Neuro General: patient oriented x3 Extrem General: Yes no clubbing, cyanosis or edema Assessment & Plan Assessment & Plan (1) Heterogeneously dense tissue of both breasts on mammography: Code(s): R92.333 - Mammographic heterogeneous density, bilateral breasts Category: Medical Plan 54-year-old female patient presenting for breast evaluation with extremely dense breast in both mammography and on examination. No suspicious findings are noted on my examination however an additional radiologic study with either MRI or ultrasound is warranted given her physical findings. I recommended bilateral complete ultrasounds of the breast. I will call her with the results once they are available. She expressed understanding and agrees with the plan. Recommended a follow-up examination in approximately 6 months. Orders: Orders US breast LT complete Today R92.333 - Mammographic heterogeneous density, bilateral breasts US breast RT complete Today R92.333 - Mammographic heterogeneous density, bilateral breasts Coding Level of Care Code New Pt Level 4 (18552) Diagnoses Heterogeneously dense tissue of both breasts on mammography R92.333
[2024-07-06 09:40] VITALS: BP 119/56; PULSE 68; BMI 29.1
== END 2024-07-06 10:25 | disposition home or self-care (01) ==
PROVIDERS: PCP Registered Nurse; Referring Provider Advanced Practice Midwife; Visit Provider Surgery
DX: R92.333 Mammographic heterogeneous density, bilateral breasts (principal)
CPT/HCPCS: 99204

== ENCOUNTER → 2024-07-06 09:23 | Outpatient (BNVA) | payer BC, SELFPAY | PROVIDERS: PCP Registered Nurse; Referring Provider Advanced Practice Midwife; Visit Provider Surgery ==

== ENCOUNTER 2024-07-17 10:07 | Outpatient (REF) | payer BC, SELFPAY ==
--- NOTE | ~2024-07-17 | XR_ITS ---
EXAMINATION: XR ANKLE, LEFT CLINICAL INFORMATION: Persistent medial ankle pain after sprinting COMPARISON: None available. TECHNIQUE: AP, lateral, and mortise views of the left ankle. FINDINGS: No fracture. Alignment is anatomic. No erosions. Some mild calcaneal spurring is present. Joint spaces are maintained. Soft tissues are normal. XR/XR ankle LT min 3V IMPRESSION: No evidence of an acute osseous injury. Mild calcaneal spurring. Electronically signed by: Tang Cazares MD 07/17/2024 12:06 PM EDT
== END 2024-07-17 10:08 | disposition home or self-care (01) ==
LOC: HO.HHCX 10:07
PROVIDERS: Visit Provider Internal Medicine Geriatric Medicine
DX: M25.572 Pain in left ankle and joints of left foot (principal); G89.29 Other chronic pain
CPT/HCPCS: 73610

== ENCOUNTER 2024-07-25 10:42 | Outpatient (REF) | payer BC, SELFPAY ==
--- NOTE | ~2024-07-25 | US_ITS ---
EXAMINATION: US SCREENING ULTRASOUND BREAST, BILATERAL CLINICAL INFORMATION: Dense breasts on mammography. Screening ultrasound. COMPARISON: No prior ultrasound. Correlation made with mammography 05/31/2024 and to 2018. TECHNIQUE: Ultrasound bilateral breasts is performed using grayscale imaging and color Doppler. Imaging is performed to include the four quadrants, bilateral axillae, and bilateral retroareolar regions. Both breasts are imaged. FINDINGS: Right breast: There is no suspicious finding by ultrasound. There is no solid mass or focal architectural abnormality. No abnormal shadowing or cystic abnormalities. No abnormal axillary lymph nodes. Left breast: There is no suspicious finding by ultrasound. There is no solid mass or focal architectural abnormality. No abnormal shadowing or cystic abnormalities. No abnormal axillary lymph nodes. US/US breast BI complete IMPRESSION: No suspicious findings on screening breast ultrasound. ASSESSMENT: BI-RADS 1 - Negative RECOMMENDATION: 1 year F/U This patient's information was entered into a reminder system with a target due date for their next mammogram. Electronically signed by: Edmond Phipps MD 07/25/2024 12:32 PM [facility]
== END 2024-07-25 10:43 | disposition home or self-care (01) ==
LOC: HO.MAMMO 10:42
PROVIDERS: PCP Internal Medicine Geriatric Medicine; Visit Provider Surgery
DX: R92.333 Mammographic heterogeneous density, bilateral breasts (principal)
CPT/HCPCS: 76641

== ENCOUNTER → 2024-07-25 11:00 | Outpatient (BNV) | payer BC, SELFPAY | PROVIDERS: PCP Internal Medicine Geriatric Medicine; Visit Provider Radiology Diagnostic Radiology | DX: R92.8 Other abnormal and inconclusive findings on diagnostic imaging of breast (principal) | CPT/HCPCS: 76641 ==

== ENCOUNTER 2024-08-03 08:36 | Outpatient (REF) | payer BC, SELFPAY ==
[2024-08-03 11:50] LABS: Alanine Aminotransferase 14 U/L (0-31); Albumin Level 4.1 g/dL (3.5-5.0); Alkaline Phosphatase 46 U/L (39-117); Anion Gap 11 (12-20); Aspartate Amino Transferase 19 U/L (5-31); Bilirubin Total 0.5 mg/dL (0.0-1.0); Blood Urea Nitrogen 20 mg/dL (9-16); Calcium 9.6 mg/dL (8.4-10.2); Carbon Dioxide 27 mmol/L (22-29); Chloride 105 mmol/L (96-108); Cholesterol 177 mg/dL (<200); Estimated Glomerular Filt Rate > 60; Glucose Random 101 mg/dL (60-115); HDL Cholesterol 59 mg/dL (>40); LDL Cholesterol Calculated 109 mg/dL (<100); Potassium 4.6 mmol/L (3.3-5.1); Sodium 138 mmol/L (135-145); Total Protein 6.7 g/dL (6.5-8.0); Triglycerides 49 mg/dL (<150)
== END 2024-08-03 08:37 | disposition home or self-care (01) ==
LOC: HO.HHCL 08:36
PROVIDERS: Visit Provider Internal Medicine Geriatric Medicine
DX: Z00.00 Encounter for general adult medical examination without abnormal findings (principal); Z13.6 Encounter for screening for cardiovascular disorders
CPT/HCPCS: 36415; 80053; 80061

== ENCOUNTER 2024-10-10 10:58 | Outpatient (REF) | payer BC, SELFPAY ==
--- OUTSIDE RECORDS SUMMARY | 2024-10-10 12:28 | XMS_ITS | Clinical Summary ---
Author Organization [employer] Address [address] [facility] [address] [place] [address] Care Team Providers Care Multimedia Production Assistant Name Role Phone Name, Brandon FUNEZ Primary Care Provider [phone] Allergies Active Allergy Reactions Criticality Noted Date Comments Penicillins Hives,Rash Low 10/04/2014 Medications No known medications Active Problems Problem Noted Date Diagnosed Date Diarrhea of presumed infectious origin 4 Assessment & Plan (04/09/2024 3:08 PM EDT): Pt with sudden onset of non bloody diarrhea, estimated 4 bouts per day often post prandial, no nocturnal awakenings, no constitutional symptoms, no known infectious source. Pepto bismal has provided some relief, at this point reasonable to trial immodium with first episode of the day. 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 Resolved Problems Problem Noted Date Diagnosed Date Resolved Date Abdominal pain 09/05/2019 07/12/2023 Excessive and frequent menstruation 01/06/2018 07/12/2023 Acute pansinusitis 06/22/2016 3 Renal mass 11/29/2014 07/12/2023 Overview (12/30/2022): Renal mass; left renal AML post embolization Encounters Date Type Department Care Team Description 10/10/2024 10:15 AM EST Office Visit [facility] [address] [place] [address] Loreto Barragan MD Renal angiomyolipoma (Primary Dx); Pain of right hip; Right-sided thoracic back pain, unspecified chronicity 10/10/2024 Travel 10/04/2024 Telephone [facility] [address] [place] [address] Name, MD Brandon Chart Prep 10/02/2024 Telephone [facility] [address] [place] [address] Brandon Kilgore MD 08/06/2024 Telephone [facility] [address] [place] [address] Name, MD Brandon 07/25/2024 Orders Only [facility] External Provider, [facility] 07/17/2024 9:30 AM EDT Office Visit [address] [address] Name, MD Brandon PE (physical exam), routine (Primary Dx); Chronic pain of left ankle 07/17/2024 Travel 07/16/2024 Travel 07/16/2024 Telephone [facility] [address] [place] [address] Becky Hester MA from Last 3 Months Immunizations Name Administration Dates Next Due Influenza Injectable Quadriv alant Preservative Free IIV4 MDCK 06/10/2023,06/11/2022,05/31/2020,2017 Influenza injectable quadriv alent IIV4 with preservative 08/24/2016 Influenza injectable quadriv alent preservative free 06/21/2021,06/21/2019,06/24/2017 Influenza, IIV3, injectable 07/10/2014,1 ,09/26/2012,2010 Tdap 08/24/2016,06/18/2011 Zoster, Recombinant 08/26/2022,02/17/2022 Social History Tobacco Use Types Packs/Day Years Used Date Smoking Tobacco: Former Cigarettes Smokeless Tobacco: Never Tobacco Cessation:Counseling Given: Not Answered Alcohol Use Standard Drinks/Week Comments Never 0 (1 standard drink = 0.6 oz pur e alcohol) Depression Answer Date Recorded Patient Health Questionnaire-9 Score 0 10/10/2024 Patient Health Questionnaire-9 Score 0 10/10/2024 Last PHQ-9: Questionnaire Data Not on file 0 10/10/2024 Housing Stability Answer Date Recorded What is your housing situation today? I have maile loco 07/17/[address] you li ve. Do you have problems with any of the following? None of the above 07/17/2024 Food Insecurity Answer Date Recorded Within the past 12 months, y ou worried that your food would run out before you got money to buy more: Never True 07/17/2024 Within the past 12 months,th e food you bought just didn't last and you didn't have enough money to get more: Never True Transportation Answer Date Recorded In the past 12 months, has l ack of transportation kept you from medical appts, meetings, work or from getting things needed for daily living? No 07/17/2024 Utilities Answer Date Recorded In the past 12 months, has t he electric, gas, oil or water company threatened to shut off services in your home? No 07/17/2024 Depression Answer Date Recorded Patient Health Questionnaire-2 Score 0 10/10/2024 Internet Access Answer Date Recorded Internet Access Q1 Yes 07/17/2024 Internet Access Q2 Not on file 07/17/2024 Comments Unknown Sex and Gender Information Value Date Recorded Sex Assigned at Female 07/19/2022 10:29 AM EDT Legal Sex Female 10:29 AM EDT Gender Identity Female 07/19/2022 10:29 AM EDT Sexual Orientation Straight 07/19/2022 10 :29 AM EDT Last Filed Vital Signs Vital Sign Reading Time Taken Comments Blood Pressure 115/67 10/10/2024 10:14 AM EST Pulse 67 10/10/2024 10:14 AM EST Temperature 36.2 ??C (97.1 ??F) 10/10/2024 10:[address] Respiratory Rate 20 10/10/2024 10:14 AM EST Oxygen Saturation 99% 10/10/2024 10:14 AM EST Inhaled Oxygen Concentration - - Weight 80.1 kg (176 lb 9.6 oz) 10/10/2024 10:14 AM EST Height 167.6 cm (5' 6 ) 10/10/2024 10:14 AM EST Body Mass Index 28.5 10/10/2024 10:14 AM EST Plan of Treatment Health Maintenance Due Date Last Done Comments CT Colonography 1970 FIT DNA/Cologuard 1970 FIT 1970 FOBT 1970 HIV Screening 1970 Sigmoidoscopy 1970 Hepatitis B Vaccines (1 of 3 - 19+ 3-dose series) 1989 Alcohol/Substance Use Screening 04/09/2025 04/09/2024 SDOH Screening 07/17/2025 07/17/2024 Tobacco Screening 07/17/2025 07/17/2024 Mammogram 07/25/2025 07/25/2024, 05/20, 07/04/2023, Additional history exists Depression Screening 10/10/2025 10/10/2024, 10/10/19 25 DTaP/Tdap/Td Vaccines (3 - Td or Tdap) 08/24/2026 08/24/2016, 06/18/2011 Cervical Cancer Screening 01/24/2029 HPV/Cotest 01/24/2029 06/21/2019 Pap Smear 01/24/2029 01/25/2024 Colonoscopy 05/09/2030 05/09/2020 Colorectal Cancer Screening 05/09/2030 RSV Patients and Patients Aged 60 years or older (1 - 1-dose 75+ series) 2045 Zoster Vaccines Completed 08/26/2022, 02/17/2022 Hepatitis C Screening Completed 07/22/2023 COVID-19 Vaccine Completed 06/01/2024, , 06/11/2022, Additional history exists Influenza Vaccine Completed 06/01/2024, , 06/11/2022, Additional history exists HIB Vaccines Aged Out No longer eligi ble based on patient's age to complete this topic HPV Vaccines Aged Out No longer eligi ble based on patient's age to complete this topic Hepatitis A Vaccines Aged Out No long er eligible based on patient's age to complete this topic IPV Vaccines Aged Out No longer eligi ble based on patient's age to complete this topic Meningococcal Vaccine Aged Out No barbi brook eligible based on patient's age to complete this topic Pneumococcal Vaccine: Pediatrics (0 to 5 Years) and At-Risk Patients (6 to 64 Years) Aged Out No longer eligible based on patient's age to complete this topic RSV under 20 months Aged Out No longe r eligible based on patient's age to complete this topic Rotavirus Vaccines Aged Out No longer eligible based on patient's age to complete this topic Procedures Procedure Name Priority Date/Time Associated Diagnosis Comments LIPID PANEL, STANDARD Routine 08/03/2024 8:38 AM EST PE (physical exam), routine COMPREHENSIVE METABOLIC PANEL Routine 08/03/2024 8:38 AM EST PE (physical exam), routine BI US BREAST COMPLETE BILATERAL Routine 07/25/2024 11:00 AM EST XR ANKLE 3+ VIEWS LEFT Routine 10:07 AM EDT Chronic pain of left ankle PAP SMEAR Routine 01/25/2024 3:45 PM EDT HEPATITIS C ANTIBODY Routine 07/22/2023 8:46 AM EDT Need for hepatitis C screening test HM COLONOSCOPY Routine 05/09/2020 ZZZ HISTORICAL HPV MRNA E6/E7 Routine 06/21/2019 9:30 AM EDT from Last 3 Months or Most Recently Relevant to Health Maintenance Results * (ABNORMAL) Lipid Panel, Standard (08/03/2024 8:38 AM EST) Triglycerides 49 <150 mg/dL [facility] Comment:Desirable Triglyceri de: less than 150 mg/dLBorderline High Triglyceride 150-199 mg/dLHigh Triglyceride: 200-499 mg/dLVery High Triglyceride: greater than or equal to 5OO mg/dL Cholesterol 177 <200 mg/dL [facility] Comment:Desirable Cholestero l: less than 200 mg/dLBorderline High Cholesterol: 200-239 mg/dLHigh Cholesterol: greater than 239 mg/dL LDL Cholesterol Calculated 109(H) <100 mg/dL [facility] Comment:Desirable LDL: less than 100 mg/dLNear Optimal/Above Optimal LDL: 110- 129 mg/dLBorderline High LDL: 130-159 mg/dLHigh LDL: 160-189 mg/dLVery High LDL: greater than or equal to 190 mg/dL HDL Cholesterol 59 >40 mg/dL [facility] Comment:Desirable HDL: great er than 40 mg/dL Note: This HDL assay may give artificially low results in patients with liver disease. Blood Venous blood specimen / Unknown 08/03/2024 8:38 AM EST 08/03/2024 11:03 AM EST us Brandon Name MD LAB BLOOD ORDERABLES Final Resul t [facility] [address] [place] [address] [phone] * (ABNORMAL) Comprehensive Metabolic Panel (08/03/2024 8:38 AM EST) Sodium 138 135 - 145 mmol/L [facility] Potassium 4.6 3.3 - 5.1 mmol/L [facility] Chloride 105 96 - 108 mmol/L [facility] Carbon Dioxide 27 22 - 29 mmol/L [facility] Anion Gap 11(L) 12 - 20 [facility] Urea Nitrogen (BUN) 20(H) 9 - 16 mg/dL [facility] Creatinine, Serum 0.80 0.5 - 1.4 mg/dL [facility] Estimated Glomerular Filt Rate >60 [facility] Comment:Chronic Kidney Disea se: Estimated GFR < 60 mL/min/1.20v9Shfwey Kidney Disease: Estimated GFR < 15 mL/min/1.73m2 Glucose 101 60 - 115 mg/dL [facility] Calcium 9.6 8.4 - 10.2 mg/dL [facility] Bilirubin, Total 0.5 0.0 - 1.0 mg/dL [facility] Aspartate Amino Transferase 19 5 - 31 U/L [facility] Alanine Aminotransferase 14 0 - 31 U/L [facility] Total Protein 6.7 6.5 - 8.0 g/dL [facility] Albumin Level 4.1 3.5 - 5.0 g/dL [facility] Alkaline Phosphatase 46 39 - 117 U/L [facility] Blood Venous blood specimen / Unknown 08/03/2024 8:38 AM EST 08/03/2024 11:03 AM EST us Brandon Name MD LAB BLOOD ORDERABLES Final Resul t [facility] [address] [facility] [place] [address] [phone] * BI US Breast Complete Bilateral (07/25/2024 11:00 AM EST) Anatomical Region Laterality Modality Breast Bilateral Ultrasound 07/25/2024 11:0 0 AM EST Narrative 07/25/2024 12:36 PM EST ? [facility] [place] ? [address] ?[place] [address] ? Ultrasound Report ? Signed ? Patient: Genesis Wagner ?MR#: [id number] ?? [id number] ? : 1970 ?Acct:[id number] ? Age/Sex: 54 / F ?ADM Date: 07/25/24 ? Loc: HO.MAMMO ? Attending Dr: Hayder An MD ? Ordering Physician: Hayder An MD ?? Date of Service: 07/25/24 ?? Procedure(s): US breast BI complete ?? Accession Number(s): [id number] ? cc: Michelle Joyce CNM; Hayder An MD; Brandon Kilgore MD; Chery Marte ? EXAMINATION: ?? US SCREENING ULTRASOUND BREAST, BILATERAL ? CLINICAL INFORMATION: ? Dense breasts on mammography. Screening ultrasound. ? COMPARISON: ? No prior ultrasound. ?? Correlation made with mammography 05/31/2024 and priors to 2019. ? TECHNIQUE: ?? Ultrasound bilateral breasts is performed using grayscale imaging and ?? color Doppler. Imaging is performed to include the four quadrants, ?? bilateral axillae, and bilateral retroareolar regions. ??Both breasts ?? are imaged. ? FINDINGS: ?? Right breast: ?? There is no suspicious finding by ultrasound. ??There is no solid mass ?? or focal architectural abnormality. No abnormal shadowing or cystic ?? abnormalities. No abnormal axillary lymph nodes. ? Left breast: ?? There is no suspicious finding by ultrasound. ??There is no solid mass ?? or focal architectural abnormality. No abnormal shadowing or cystic ?? abnormalities. No abnormal axillary lymph nodes. ? US/US breast BI complete ?? IMPRESSION: ?? No suspicious findings on screening breast ultrasound. ? ASSESSMENT: ? BI-RADS 1 - Negative ? RECOMMENDATION: ?? 1 year F/U ? This patient's information was entered into a reminder system with a ?? target due date for their next mammogram. ? Electronically signed by: ??Edmond Phipps MD ??07/25/2024 12:32 PM EST RP ? Dictated By: ?Edmond Phipps MD ? Signed By: ?<Electronically signed by Edmond Phipps MD in OV> ?07/25/24 1232 ? DD/ 1100 ? TD/TT: 07/25/24 1131 ? Flight Engineer: ? Procedure Note Derek, Ramón - 07/25/2024 [facility] [address] [place] [address] Ultrasound Report Signed Patient: Genesis Wagner [facility]#: [id number] : 1970Acct:[id number] Age/Sex: 54 / FADM Date: 07/25/24 Loc: HO.MAMMO Attending Dr: Hayder An MD Ordering Physician: Hayder An MD Date of Service: 07/25/24 Procedure(s): US breast BI complete Accession Number(s): [id number] cc: Michelle Joyce CNM; Hayder An MD; Brandon Kilgore MD; Sarah Marte EXAMINATION: US SCREENING ULTRASOUND BREAST, BILATERAL CLINICAL INFORMATION: Dense breasts on mammography. Screening ultrasound. COMPARISON: No prior ultrasound. Correlation made with mammography 05/31/2024 and priors to 2019. TECHNIQUE: Ultrasound bilateral breasts is performed using grayscale imaging and color Doppler. Imaging is performed to include the four quadrants, bilateral axillae, and bilateral retroareolar regions. Both breasts are imaged. FINDINGS: Right breast: There is no suspicious finding by ultrasound. There is no solid mass or focal architectural abnormality. No abnormal shadowing or cystic abnormalities. No abnormal axillary lymph nodes. Left breast: There is no suspicious finding by ultrasound. There is no solid mass or focal architectural abnormality. No abnormal shadowing or cystic abnormalities. No abnormal axillary lymph nodes. US/US breast BI complete IMPRESSION: No suspicious findings on screening breast ultrasound. ASSESSMENT: BI-RADS 1 - Negative RECOMMENDATION: 1 year F/U This patient's information was entered into a reminder system with a target due date for their next mammogram. Electronically signed by: Edmond Phipps MD 07/25/2024 12:32 PM [facility] Dictated By: Edmond Phipps MD Signed By: <Electronically signed by Edmond Phipps MD in OV> 07/25/24 1232 DD/ 1100 TD/TT: 07/25/24 1131 Flight Engineer: [facility] External Provider IMG US PROCEDURES Final Result * XR Ankle 3+ Views Left (07/17/2024 10:07 AM EDT) Anatomical Region Laterality Modality Lower Extremities, Ankle Left Radiogr aphic Imaging 07/17/2024 10:0 7 AM EDT Narrative 07/17/2024 12:08 PM EDT ?[facility] ?[address] ?[place] [address] ?XRay Report ? Signed ? Patient: Kyle Montano,Genesis N ?MR#: [id number] ?? [id number] ? : 1970 ?Acct:[id number] ? Age/Sex: 54 / F ?ADM Date: 10/29/24 ? Loc: HO.HHCX ? Attending Dr: Brandon Kilgore MD ? Ordering Physician: Brandon Kilgore MD ?? Date of Service: 07/17/24 ?? Procedure(s): XR ankle LT min 3V ?? Accession Number(s): [id number] ? cc: Name,Brandon FUNEZ ? EXAMINATION: ?? XR ANKLE, LEFT ? CLINICAL INFORMATION: ?? Persistent medial ankle pain after sprinting ? COMPARISON: ?? None available. ? TECHNIQUE: ?? AP, lateral, and mortise views of the left ankle. ? FINDINGS: ?? No fracture. Alignment is anatomic. No erosions. Some mild calcaneal ?? spurring is present. Joint spaces are maintained. Soft tissues are ?? normal. ? XR/XR ankle LT min 3V ?? IMPRESSION: ?? No evidence of an acute osseous injury. Mild calcaneal spurring. ? Electronically signed by: ??Tang Cazares MD ??07/17/2024 12:06 PM EDT ? Dictated By: ?Tang Cazares MD ? Signed By: ?<Electronically signed by Tang Cazares MD in OV> ? 07/17/24 1206 ? DD/ 1007 ? TD/TT: 07/17/24 1035 ? Flight Engineer: SS ? Procedure Note Ramón Reed - 07/17/[address] [address] XRay Report Signed Patient: Genesis Wagner NMR#: [id number] : 1970Acct:[id number] Age/Sex: 54 / FADM Date: 07/17/24 Loc: HO.HHCX Attending Dr: Brandon Kilgore MD Ordering Physician: Brandon Kilgore MD Date of Service: 07/17/24 Procedure(s): XR ankle LT min 3V Accession Number(s): [id number] cc: Brandon Kilgore MD EXAMINATION: XR ANKLE, LEFT CLINICAL INFORMATION: Persistent medial ankle pain after sprinting COMPARISON: None available. TECHNIQUE: AP, lateral, and mortise views of the left ankle. FINDINGS: No fracture. Alignment is anatomic. No erosions. Some mild calcaneal spurring is present. Joint spaces are maintained. Soft tissues are normal. XR/XR ankle LT min 3V IMPRESSION: No evidence of an acute osseous injury. Mild calcaneal spurring. Electronically signed by: Tang Cazares MD 07/17/2024 12:06 PM EDT Dictated By: Tang Cazares MD Signed By: <Electronically signed by Tang Cazares MD in OV> 07/17/24 1206 DD/ 1007 TD/TT: 07/17/24 1035 Flight Engineer: ELLIE us Brandonmargo Kilgore MD IMG XR PROCEDURES Edited Result - Final * Pap Smear (01/25/2024 3:45 PM EDT) 01/25/2024 3:45 PM EDT 01/27/2024 7:00 AM EDT [facility] - 02/11/2024 5:47 PM EDT ----- ------- Name: Genesis Wagner ?Age/Sex: 53/F ? : 1970 Unit#: [id number] ?? Attend Dr: Michelle Joyce CNM ?Re01/25/24 ?Status: DEP REF ? Location: HO.LNP ?Disch: ? ----- ------- SPEC : [id number] ? RECD: 01/27/24 ? STATUS: ??SOUT ? REQ NUM: [id number] ? BRUNO: 01/25/24 ? SUBM DR: Michelle Joyce CNM ? ENTERED: ??01/27/24 ?SP TYPE: Pap Smr ?OTHR DR: Brandon Kilgore MD ? ORDERED: ??Pap Smear ? Interpretation ?? Satisfactory for evaluation. ?? Negative for intraepithelial lesion or malignancy. ? HPV mRNA E6/E7: ?NOT DETECTED ? This assay detects E6/E7 viral messenger RNA (mRNA) from 14 high-risk HPV types (16, 18, ?? 31, 33, 35, 39, 45, 51, 52, 56, 58, 59, 66, 68) ? HPV testing performed by [facility], [place], [place]. ??See reference laboratory ?? portion of the EMR for entire report. ?Clinical Information LMP: 04/2023 Previous PAP test: 2019, WNL ? Material Received ?? ThinPrep-Cervical Copies To: ?? Michelle Joyce CNM ?? [address] Garza ?? [place] [address] ?? [phone] ?? Name,Brandon FUNEZ ?? [address] ?? [place] [address] ?? [phone] ----- ------- Signed (signature on file) Sharon Farmer 02/11/241746 ? ----- ------- ? END OF REPORT ? us Generic External Data Provider LAB CYTOLOGY ORDE RABLES Final Result Performing Organization Address [facility] Co de Phone Number [facility] [address], [place] [phone] * Hepatitis C Ab (07/22/2023 8:46 AM EDT) Pathologist [facility] Hepatitis C Antibody Nonreactive Nonreactive [facility] Comment:Antibodies to HCV no t detected; does not exclude early acuteHCV infection. Blood Venous blood specimen / Unknown 07/22/2023 8:46 AM EDT 07/22/2023 11:13 AM EDT Brandon Kilgore MD LAB BLOOD ORDERABLES Final Resul t Performing Organization Address [facility] Co de Phone Number [facility] [address] [place] [address] [phone] * Colonoscopy (05/09/2020) Colonoscopy Normal Normal Kumar Collins MD HEALTH MAINTENANCE Final Result * HPV mRNA E6/E7 (06/21/2019 9:30 AM EDT) HPV mRNA E6/E7 Not Detected NOT DETECTED [facility] Comment: This test was performed using the APTIMA(R) HPV Assay ([employer] This assay detects E6/E7 viral messenger RNA (mRNA) from 14 high-risk HPV types (16,18,31,33,35,39,45,51, 52,56,58,59,66,68). For additional information please refer to: http://education.CollegeBrain/faq/EVB043l7 (This link is being provided for informational/ educational purposes only.) The analytical performance characteristics of this assay have been determined by [employer] [place], [place]. The modifications have not been cleared or approved by the FDA. This assay has been validated pursuant to the CLIA regulations and is used for clinical purposes. Test Performed by [facility], [facility], [address] [place] [address] Tai Gupta M.D., Ph.D., Director of Laboratories , CLIA [id number] Please note: ??Effective 05/31/2016, HPV testing will be performed using [employer] APTIMA test which targets mRNA. Detecting mRNA instead of DNA, as in older methods, offers significant improvements in specificity. 06/21/2019 9:30 AM EDT Sharri Stout CNM HISTORICAL/NON ORDERABLE LABS Final Result [facility] [address] from Last 3 Months or Most Recently Relevant to Health Maintenance [place] [address] [place] [address] HMO Care Teams Multimedia Production Assistant Relationship Specialty Start Date End Date Name, MD Brandon [address] [place] [phone] PCP - General Family Medicine 09/19/18
--- OUTSIDE RECORDS SUMMARY | 2024-10-10 12:28 | XMS_ITS | Encounter Summary ---
Author Organization [employer] Address [address] [facility] [address] [place] [address] Care Team Providers Care Armature Tester Name Role Phone Name, Brandon FUNEZ Primary Care Provider [phone] Encounter Details Date Type Department Care Team (Latest Contact Info) Description 10/10/2024 Travel Social History Tobacco Use Types Packs/Day Years Used Date Smoking Tobacco: Former Cigarettes Smokeless Tobacco: Never Alcohol Use Standard Drinks/Week Comments Never 0 [...] Orientation Straight 07/19/2022 10 :29 AM EDT documented as of this encounter Plan of Treatment Not on file documented as of this encounter Visit Diagnoses Not on filedocumented in this encounter Additional Health Concerns Assessment Noted Time PHQ-9 Depression Total Score: 0 10/10/19 25 10:55 AM EST documented as of this encounter Care Teams Armature Tester Relationship Specialty Start Date End Date Name, MD Brandon [address] [place] [address] PCP - General Family Medicine 09/19/18 documented as of this encounter
--- OUTSIDE RECORDS SUMMARY | 2024-10-10 12:28 | XMS_ITS | Encounter Summary ---
Author Organization [employer] Address [address] [facility] [address] [place] [address] Care Team Providers Care Banking Officer Name Role Phone Name, Brandon FUNEZ Primary Care Provider [phone] Reason for Visit * Reason Onset Date Comments Chart Prep 10/04/2024 Encounter Details Date Type Department Care Team ([facility] st Contact Info) Description 10/04/2024 Telephone [facility] [address] [place], [place] [phone] Name, MD Brandon [address] [place] [phone] Chart Prep Social History Tobacco Use Types Packs/Day Years Used Date Smoking Tobacco: Former Cigarettes Smokeless Tobacco: Never Alcohol Use Standard Drinks/Week Comments Never 0 (1 standard drink = 0.6 oz pur e alcohol) Depression Answer Date Recorded Patient Health Questionnaire-9 Score 0 07/12/2023 Patient Health Questionnaire-9 Score 0 07/12/2023 Last PHQ-9: Questionnaire Data Not on file 1 Housing Stability Answer Date Recorded What is [...] Date Recorded Patient Health Questionnaire-2 Score 0 07/12/2023 Internet Access Answer Date Recorded Internet Access Q1 Yes 07/17/2024 Internet Access Q2 Not on file 07/17/2024 Comments Unknown Sex and Gender Information Value Date Recorded Sex Assigned at Female 07/19/2022 10:29 AM EDT Legal Sex Female 10:29 AM EDT Gender Identity Female 07/19/2022 10:29 AM EDT Sexual Orientation Straight 07/19/2022 10 :29 AM EDT documented as of this encounter Miscellaneous Notes * Telephone Encounter - Lynne Bhakta [place] - 10/04/2024 11:46 AM EST Chart Prep Labs: done Images: done Vaccines due: yes Referrals: n/a Screenings: STI screening Overdue care gaps: n/a documented in this encounter Plan of Treatment Not on file documented as of this encounter Visit Diagnoses Not on filedocumented in this encounter Additional Health Concerns Assessment Noted Time PHQ-9 Depression Total Score: 0 07/12/20 23 9:35 AM EDT documented as of this encounter Care Teams Banking Officer Relationship Specialty Start Date End Date Name, MD Brandon [address] [place] [address] PCP - General Family Medicine 09/19/18 documented as of this encounter
--- OUTSIDE RECORDS SUMMARY | 2024-10-10 12:28 | XMS_ITS | Encounter Summary ---
Author Organization [employer] Address [address] [facility] [address] [place] [address] Care Team Providers Care Rib Matcher And Fitter Name Role Phone Name, Brandon FUNEZ Primary Care Provider [phone] Reason for Visit * Reason Comments Follow-up flank pain Encounter Details Date Type Department Care Team (Latest Contact Info) Description 10/10/2024 10:15 AM EST Office Visit [facility] [address] [place], [place] [phone] Loreto Barragan MD [address] [place] [address] Renal angiomyolipoma (Primary Dx); Pain of right hip; Right-sided thoracic back pain, unspecified chronicity Social History Tobacco Use Types Packs/Day Years [...] AM EDT documented as of this encounter Last Filed Vital Signs Vital Sign Reading [...] Mass Index 28.5 10/10/2024 10:14 AM EST documented in this encounter Plan of Treatment Scheduled Orders Name Type Priority Associated Diagnoses Orde r Schedule Vitamin D, 25-Hydroxy, Total, Immunoassay Lab Routine Renal angiomyolipoma Pain of right hip Right-sided thoracic back pain, unspecified chronicity Expected: 10/10/2024 (Approximate), Expires: 10/10/2025 XR Thoracic Spine 2 Views Imaging Routine Pain of right hip Right-sided thoracic back pain, unspecified chronicity Expected: 10/10/2024, Expires: 10/10/2025 Sed Rate by Modified [place] Lab Routine Right-sided thoracic back pain, unspecified chronicity Expected: 10/10/2024, Expires: 10/10/2025 documented as of this encounter Visit Diagnoses Diagnosis Renal angiomyolipoma- Primary Benign neoplasm of kidney, except pelvis Pain of right hip Right-sided thoracic back pain, unspecified chronicity documented in this encounter Additional Health Concerns Assessment Noted Time PHQ-9 Depression Total Score: 0 10/10/19 25 10:55 AM EST documented as of this encounter Care Teams Rib Matcher And Fitter Relationship Specialty Start Date End Date Name, MD Brandon [address] [place] [phone] PCP - General Family Medicine 09/19/18 documented as of this encounter
--- OUTSIDE RECORDS SUMMARY | 2024-10-10 12:29 | XMS_ITS | Encounter Summary ---
Author Organization [employer] Address [address] [place] [address] [address] [place] [address] Care Team Providers Care Factory Expert Name Role Phone Name, Brandon FUNEZ Primary Care Provider [phone] Encounter Details Date Type Department Care Team ([facility] st Contact Info) Description 03/08/2023 Abstract [facility] MED & PEDS [address] [place], [place] [phone] Name, MD Brandon [address] [place] [id number] Social History Tobacco Use Types Packs/Day Years Used Date Smoking Tobacco: Some Days Cigarettes Smokeless Tobacco: Never Comments Unknown Sex and Gender Information Value Date Recorded Sex Assigned at Female 07/19/2022 10:29 AM EDT Legal Sex Female 10:29 AM EDT Gender Identity Female 07/19/2022 10:29 AM EDT Sexual Orientation Straight 07/19/2022 10 :29 AM EDT documented as of this encounter Plan of Treatment Not on file documented as of this encounter Visit Diagnoses Not on filedocumented in this encounter Care Teams Factory Expert Relationship Specialty Start Date End Date Name, MD Brandon [address] [place] [phone] PCP - General Family Medicine 09/19/18 documented as of this encounter
--- OUTSIDE RECORDS SUMMARY | 2024-10-10 12:29 | XMS_ITS | Encounter Summary ---
Author Organization [employer] Address [address] [facility] [address] [place] [address] Care Team Providers Care Ammunition Officer Name Role Phone Name, Brandon FUNEZ Primary Care Provider [phone] Encounter Details Date Type Department Care Team ([facility] st Contact Info) Description 10/02/2024 Telephone [facility] [address] [place] [address] [phone] Name, MD Brandon [address] [place] [phone] Social History Tobacco Use Types Packs/Day Years [...] encounter Miscellaneous Notes * Telephone Encounter - Alka Blanco - 10/02/2024 2:17 PM EST T/c call to patient per recall, patient didn't answer. If patient call back you can book for november.Letter sent. documented in this encounter Plan of Treatment Not on file documented as of this encounter Visit Diagnoses Not on filedocumented in this encounter Additional Health Concerns Assessment Noted Time PHQ-9 Depression Total Score: 0 07/12/20 23 9:35 AM EDT documented as of this encounter Care Teams Ammunition Officer Relationship Specialty Start Date End Date Name, MD Brandon [address] [place] [address] PCP - General Family Medicine 09/19/18 documented as of this encounter
[2024-10-10 14:59] LABS: Erythrocyte Sedimentation Rate 7 MM/HR (0-20); Vitamin D 25-OH Total 30.7 ng/mL (>30)
== END 2024-10-10 10:59 | disposition home or self-care (01) ==
LOC: HO.CHCLDS 10:58
PROVIDERS: Visit Provider Pediatrics
DX: D17.71 Benign lipomatous neoplasm of kidney (principal); M25.551 Pain in right hip; M54.6 Pain in thoracic spine
CPT/HCPCS: 36415; 82306; 85652

== ENCOUNTER 2024-10-11 09:02 | Outpatient (REF) | payer BC, SELFPAY ==
--- NOTE | ~2024-10-11 | XR_ITS ---
EXAMINATION: XR THORACIC SPINE CLINICAL INFORMATION: PAIN, right lower thoracic. COMPARISON: None available. TECHNIQUE: 3 views of the thoracic spine were obtained. FINDINGS: There is normal bone mineralization. No fracture, compression deformity, or suspicious bone lesion. No scoliosis. Mildly exaggerated kyphosis. No subluxations. Mild diffuse disc degeneration. Normal facet alignment. Remainder of the imaged lungs, mediastinal contents, and soft tissues appear normal. XR/XR thoracic spine 2V IMPRESSION: 1. No acute findings thoracic spine. 2. Mild diffuse degenerative disc disease. Electronically signed by: Edmond Phipps MD 10/11/2024 10:08 AM ANURAG
[2024-10-11 11:36] LABS: Appearance Urine Clear; Color Urine Yellow; Glucose Urine UA Negative (Negative); Leukocyte Esterase Urine Negative (Negative); Nitrite Urine Negative (Negative); Urine Blood Negative (Negative); Urine Ketones Negative (Negative); Urine Protein Negative (Neg-Trace)
[2024-10-11 11:47] LABS: Bacteria Urine None Seen (None Seen); Hyaline Casts Urine 0-2 /LPF (0-2); RBC Urine 0-2 /HPF (0-2); Squamous Epithelial Cell Urine 0-2 /HPF (0-2); WBC Urine 0-5 /HPF (0-5)
== END 2024-10-11 09:03 | disposition home or self-care (01) ==
LOC: HO.HHCL 09:02
PROVIDERS: Visit Provider Pediatrics
DX: D17.71 Benign lipomatous neoplasm of kidney (principal); R10.9 Unspecified abdominal pain; G89.29 Other chronic pain; M25.551 Pain in right hip; M54.6 Pain in thoracic spine
CPT/HCPCS: 72070; 81001

== ENCOUNTER → 2024-10-11 09:10 | Outpatient (BNV) | payer BC, SELFPAY | PROVIDERS: Visit Provider Radiology Diagnostic Radiology | DX: M54.6 Pain in thoracic spine (principal) | CPT/HCPCS: 72070 ==

== ENCOUNTER 2024-11-06 08:27 | Outpatient (AMB) | payer BC, SELFPAY ==
--- NOTE | 2024-11-06 08:27 | A.OFFVIS_ITS ---
Vital Signs 11/06/24 08:28 Height 5 ft 6 in Weight 178 lb BMI 28.7 BP 111/55 L Blood Pressure Location Rt brachial Position Sitting Pulse 72 Pulse Source Pulse Oximeter Pulse Oximetry (%) 99 Oxygen Delivery Method Room Air Intake Visit Reasons: right hip/low back pain Allergies penicillin G Allergy (Unknown, Verified 11/06/24 08:33) hives HPI Comments Details: Genesis is a very pleasant 54-year-old female who presents to the office today for evaluation and management of her right lower back pain Has been suffering with this pain for approximately 1 year. Denies inciting injury, fall, trauma Endorses pain right PSIS, worse with lying right side, walking, sitting too long, going up and down the stairs. She completed physical therapy less than 1 year ago, continues with home exercise program but pain persists. Taking Motrin as needed, applying topical NSAID cream nightly but pain persists. She has tried ice and heat also without relief of her symptoms. Denies radiation of the pain down either lower extremity. Denies numbness, tingling, weakness of either lower extremity Denies red flag symptoms including new loss of bowel, bladder or saddle anesthesia She also endorses tenderness over right lumbar paraspinal muscles and discomfort with moving and exercise. She continues going to the gym but only does what she can and stops immediately if she feels worsening pain. There are trainers at the gym that guide her with the exercise program. Pain today is rated as a 6/10, constant. Worse with movements. In terms of muscle damage condition is described as stabbing, aching, pinching, cramping, dull, sore, sharp Pain is negatively impacting patient's sleep, normal functioning, mood, work Denies current use of anticoagulants Denies implantable devices, pacemaker or defibrillator Denies current use of nicotine, tobacco, alcohol or illicit substances PFSH Medical History Dense breast Hot flashes Doris-menopause Ovarian cyst Fibroid History of uterine fibroid Surgical History History of kidney surgery Family History Mother Fibroids Social History Household Members: Spouse and Children Housing: House Alcohol intake: current Alcohol intake frequency: a few times a week Patient Tobacco Use Status: Former Tobacco user Current occupational status: employed 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 Answers questions appropriately. Fully engaged in examination. Skin: warm, dry, intact HEENT: Normocephalic. Hearing intact. Cardiac: External chest normal in appearance. Respiratory: No cough, audible wheezing or stridor. Abdomen: without gross distension. MS: No obvious swelling or deformities. Able to transition from sit to stand unassisted. Ambulates with bilaterally normal heel strike and toe off Strength: 5/5 BLE Tender to palpation over right lumbar paraspinal muscles Right SIJ: Tenderness to palpation over right PSIS. Gaenslen positive, compression positive, CHRIS positive, thigh thrust positive Neurological: Oriented to person, place, time and situation. Thought process intact. No gait abnormalities appreciated. Psychiatric: Appropriate mood and affect. Good judgment and insight. Results Reviewed Results Reviewed: 12/06/23 XR/XR pelvis 1-2V FINDINGS: There is normal symmetry of bilateral hip joints and SI joints without any fracture, dislocation or bony erosive changes. Again visualized is a small radiopaque 3 mm density overlying the right hip joint/acetabulum. This is same density seen in the previous exam 11/24/2023. The soft tissues are normal. IMPRESSION: Small radiopaque density overlying the right hip joint is similar in size and position to same study. This may be a skin or subcutaneous calcification or artifact. 11/24/23 XR/XR hip RT min 2V, XR/XR lumbar spine 4V min RIGHT HIP: Limited visualization due to body habitus. Alignment preserved. Small radiodense device projects over the lateral aspect of the superior pubic ramus on the AP view and over the right femoral neck/intertrochanteric region on the lateral view and is of indeterminate etiology. Correlation with clinical exam recommended to determine if this is external to the patient versus internal. Mild degenerative changes in the right hip. LUMBAR SPINE: Mild rightward curvature of the lumbar spine. Punctate radiodensities overlying the left upper quadrant, possibly representing ingested material. Asymmetric degenerative changes with sclerosis in the left sacroiliac joint greater than right. Partially imaged sclerotic focus overlying the right iliac bone should be evaluated with dedicated views of the pelvis. Smaller sclerotic focus overlying the L5 vertebral body on the lateral view was less conspicuous on additional views. Facet arthritis in the [id number] lumbar spine. Moderate multilevel lumbar spondylosis with moderate loss of disc space height at L4-L5 and L5-S1. Grade 1 retrolisthesis of L3 on L4. IMPRESSION: 1. Mild degenerative changes in the right hip. 2. Moderate multilevel lumbar spondylosis with moderate loss of disc space height at L4-L5 and L5-S1. 3. Incompletely imaged sclerotic focus overlying the right iliac bone should be evaluated with dedicated views of the pelvis. 4. Facet arthritis in the atd-yv-iblel lumbar spine. Assessment & Plan Assessment & Plan (1) Sacroiliac joint dysfunction of right side: Code(s): M53.3 - Sacrococcygeal disorders, not elsewhere classified Category: Medical (2) Myofascial low back pain: Code(s): M54.50 - Low back pain, unspecified Category: Medical (3) Lumbar spondylosis: Code(s): M47.816 - Spondylosis without myelopathy or radiculopathy, lumbar region Category: Medical Plan Genesis is a very pleasant 54-year-old female who presented to the office today for evaluation and management of her chronic right lower back pain History, physical exam and provocative testing consistent with right sacroiliac joint dysfunction and myofascial lower back pain Has exhausted conservative therapy including PT, home exercise program, NSAIDs, topical medications, ice and heat all without improvement of her symptoms New prescription for methocarbamol 500 mg p.o. 3 times daily as needed. Patient advised on cautions for use Discussed options for treatment including diagnostic interventional testing, epidural steroid injections, peripheral nerve stimulation with Sprint, RFA and more permanent neuromodulation. Will schedule for fluoroscopy guided right diagnostic sacroiliac joint injection with local anesthetic. All questions and concerns have been answered and patient agrees with the plan. Follow up after injection, sooner if needed. Medications: New methocarbamol No driving while taking this medication. Do no take with alcohol or other STRAIGHTENING ROLL OPERATOR Depressants 500 mg PO TID PRN 90 tabs 0RF muscle spasm Coding Level of Care Code New Pt Level 4 (16769) Complex EM visit Add On G2211 Diagnoses Sacroiliac joint dysfunction of right side M53.3 Myofascial low back pain M54.50 Lumbar spondylosis M47.816
[2024-11-06 08:28] VITALS: BP 111/55; PULSE 72; O2SAT 99; BMI 28.7
--- OUTSIDE RECORDS SUMMARY | 2024-11-06 08:47 | XMS_ITS | Encounter Summary ---
Author Organization [employer] Address [address] [place] [address] [address] [place] [address] Care Team Providers Care Regional Ehs Manager Name Role Phone Name, Brandon FUNEZ Primary Care Provider [phone] Encounter Details Date Type Department Care Team ([facility] st Contact Info) Description 03/08/2023 Abstract [facility] MED & PEDS [address] [place], [place] [phone] Name, MD Brandon [address] [place] [phone] Social History Tobacco Use Types Packs/Day Years [...] on filedocumented in this encounter Care Teams Regional Ehs Manager Relationship Specialty Start Date End Date Name, MD Brandon [address] [place] [address] [phone] PCP - General Family Medicine 09/19/18 documented as of this encounter
--- OUTSIDE RECORDS SUMMARY | 2024-11-06 08:47 | XMS_ITS | Encounter Summary ---
Author Organization [employer] Address [address] [facility] 7 [place] [address] Care Team Providers Care Blower And Compressor Assembler Name Role Phone Name, Brandon FUNEZ Primary Care Provider [phone] Reason for Referral * Consultation (Routine) - Authorized Specialty Diagnoses / Procedures Referred By Contac t Referred To Contact Pain Medicine Diagnoses Pain of right hip Right-sided thoracic back pain, unspecified chronicity Loreto Barragan MD [address] [place] [address] Phone: tel: fax: Nicholas Russell MD [address] [place] [address] [address] [place] [address] Phone: tel: fax: Referral ID Status Reason Start Date Expiration Date Visits Requested Visits Authorized [id number] Authorized Specialty Services Required 10/10/2024 10/10/2025 1 1 Reason for Visit * Reason Comments Follow-up flank pain Encounter Details Date Type Department Care Team (Latest Contact Info) Description 10/10/2024 10:15 AM EST Office Visit [facility] [address] [place], [place] [phone] Loreto Barragan MD [address] [place] [address] Renal angiomyolipoma (Primary Dx); Pain of right hip; Right-sided thoracic back pain, unspecified chronicity; Flank pain, chronic Social History Tobacco Use Types Packs/Day Years [...] 10:14 AM EST documented in this encounter Progress Notes * Loreto Barragan MD - 10/10/2024 10:15 AM EST Images from the original note were not included. Subjective Patient ID: Genesis Montano is a 54 y.o. female who presents for Follow-up (flank pain//). 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 Pain varies with rotation and laying on R side. Has 09/10 abdominal MRI which was reviewed.Pelvic US had fibroid tumors and known ovary cyst. She is able to walk,keeps attending gym classes that she modifies if needs to. Flank Pain This is a chronic problem. The current episode started more than 1 month ago. The problem occurs daily. The problem is unchanged. The pain is present in the thoracic spine. The quality of the pain isdescribed as aching and stabbing. The pain does not radiate. The pain is mild. The symptoms are aggravated by twisting and position. Pertinent negatives include no abdominal pain, bladder incontinence, bowel incontinence, chest pain, dysuria, fever, headaches, leg pain, numbness, paresis, paresthesias, pelvic pain, perianal numbness, tingling, weakness or weight loss. She has tried analgesics, NSAIDs, walking and home exercises for the symptoms. The treatment provided no relief. Review of Systems Constitutional: Negative for fever and weight loss. Cardiovascular: Negative for chest pain. Gastrointestinal: Negative for abdominal pain and bowel incontinence. Genitourinary: Positive for flank pain. Negative for bladder incontinence, dysuria and pelvic pain. Neurological: Negative for tingling, weakness, numbness, headaches and paresthesias. Objective BP 115/67 (BP Location: Left arm, Patient Position: Sitting, BP Cuff Size: Adult) Pulse67 Temp 97.1 ??F (36.2 ??C) (Oral) Resp 20 Ht 5' 6 (1.676 m) Wt 176 lb 9.6 oz (80.1 kg) SpO2 99% BMI 28.50 kg/m?? Physical Exam Vitals reviewed. Constitutional: General: She is not in acute distress. Appearance: Normal appearance. She is not ill-appearing or toxic-appearing. HENT: Head: Normocephalic. Cardiovascular: Rate and Rhythm: Normal rate and regular rhythm. Pulmonary: Effort: Pulmonary effort is normal. No respiratory distress. Breath sounds: Normal breath sounds. Abdominal: General: There is no distension. Palpations: Abdomen is soft. Tenderness: There is no abdominal tenderness. There is no guarding. Musculoskeletal: Thoracic back: No spasms or bony tenderness. Normal range of motion. No scoliosis. Lumbar back: No edema, deformity, tenderness or bony tenderness. Normal range of motion. Negative right straight leg raise test and negative left straight leg raise test. No scoliosis. Back: Right lower leg: No edema. Left lower leg: No edema. Comments: Area of pain during deep palpation Neurological: Mental Status: She is alert and oriented to person, place, and time. Psychiatric: Behavior: Behavior normal. Assessment/Plan Diagnoses and all orders for this visit: Renal angiomyolipoma Comments: On opposite side.Seen in [place].Has f/u in 3 years. Orders: - Vitamin D, 25-Hydroxy, Total, Immunoassay; Future - Urinalysis, Complete, with Reflex to Culture; Future Pain of right hip - Vitamin D, 25-Hydroxy, Total, Immunoassay; Future - XR Thoracic Spine 2 Views; Future Right-sided thoracic back pain, unspecified chronicity Comments: Xrays of thoracic spine ordered today,will refer to pain management at [facility] for eval due to chronicity of symtoms despite PT txs,etc..Continue Stretching,exercise activity,prn nsaids etc.. Call with results when available. Orders: - Vitamin D, 25-Hydroxy, Total, Immunoassay; Future - XR Thoracic Spine 2 Views; Future - Sed Rate by Modified Westergren; Future Flank pain, chronic Comments: Suspect musculosckeletal origin,xrays ordered.Pain management referral done,Check UA.prior imaging studies all reviewed and reasuring. Orders: - Urinalysis, Complete, with Reflex to Culture; Future documented in this encounter Plan of Treatment Scheduled Referrals Name Type Priority Associated Diagnoses Orde r Schedule Referral to Pain Medicine Outpatient Referral Routine Pain of right hip Right-sided thoracic back pain, unspecified chronicity Expected: 10/10/2024 (Approximate), Expires: 10/10/2025 documented as of this encounter Procedures Procedure Name Priority Date/Time Associated Diagnosis Comments XR THORACIC SPINE 2 VIEWS Routine 10/11/2024 9:10 AM EST Pain of right hip Right-sided thoracic back pain, unspecified chronicity URINALYSIS, COMPLETE, WITH REFLEX TO CULTURE Routine 10/11/2024 9:04 AM EST Renal angiomyolipoma Flank pain, chronic VITAMIN D,25-OH,TOTAL,IA Routine 10/10/2024 10:59 AM EST Renal angiomyolipoma Pain of right hip Right-sided thoracic back pain, unspecified chronicity SED RATE BY MODIFIED WESTERGREN Routine 10/10/2024 10:59 AM EST Right-sided thoracic back pain, unspecified chronicity documented in this encounter Results * XR Thoracic Spine 2 Views (10/11/2024 9:10 AM EST) Anatomical Region Laterality Modality Spine, T-spine Radiographic Argelia ging 10/11/2024 9:10 AM EST Narrative 10/11/2024 10:11 AM EST ? [facility] ?[address] ?[place] [address] ?XRay Report ? Signed ? Patient: Kyle Montano,Genesis N ?MR#: [id number] ?? [id number] ? : 1970 ?Acct:[id number] ? Age/Sex: 54 / F ?ADM Date: 01/23/25 ? Loc: HO.HHCL ? Attending Dr: Loreto Barragan MD ? Ordering Physician: Loreto Barragan MD ?? Date of Service: 10/11/24 ?? Procedure(s): XR thoracic spine 2V ?? Accession Number(s): [id number] ? cc: Loreto Barragan MD ? EXAMINATION: ?? XR THORACIC SPINE ? CLINICAL INFORMATION: ?? PAIN, right lower thoracic. ? COMPARISON: ?? None available. ? TECHNIQUE: ?? 3 views of the thoracic spine were obtained. ? FINDINGS: ?? There is normal bone mineralization. No fracture, compression ?? deformity, or suspicious bone lesion. ?? No scoliosis. Mildly exaggerated kyphosis. No subluxations. ?? Mild diffuse disc degeneration. ?? Normal facet alignment. ? Remainder of the imaged lungs, mediastinal contents, and soft tissues ?? appear normal. ? XR/XR thoracic spine 2V ?? IMPRESSION: ?? 1. No acute findings thoracic spine. ?? 2. Mild diffuse degenerative disc disease. ? Electronically signed by: ??Edmond Phipps MD ??10/11/2024 10:08 AM EST RP ? Dictated By: ?Edmond Phipps MD ? Signed By: ?<Electronically signed by Edmond Phipps MD in OV> ?10/11/24 1008 ? DD/ 9 ? TD/TT: 10/11/24924 ? Swimming Pool Cleaner: ? Procedure Note Derek, Image - 10/11/[address] [address] XRay Report Signed Patient: Genesis Wagner [facility]#: [id number] : 1970Acct:[id number] Age/Sex: 54 / FADM Date: 10/11/24 Loc: HO.HHCL Attending Dr: Loreto Barragan MD Ordering Physician: Loreto Barragan MD Date of Service: 10/11/24 Procedure(s): XR thoracic spine 2V Accession Number(s): [id number] cc: Loreto Barragan MD EXAMINATION: XR THORACIC SPINE CLINICAL INFORMATION: PAIN, right lower thoracic. COMPARISON: None available. TECHNIQUE: 3 views of the thoracic spine were obtained. FINDINGS: There is normal bone mineralization. No fracture, compression deformity, or suspicious bone lesion. No scoliosis. Mildly exaggerated kyphosis. No subluxations. Mild diffuse disc degeneration. Normal facet alignment. Remainder of the imaged lungs, mediastinal contents, and soft tissues appear normal. XR/XR thoracic spine 2V IMPRESSION: 1. No acute findings thoracic spine. 2. Mild diffuse degenerative disc disease. Electronically signed by: Edmond Phipps MD 10/11/2024 10:08 AM EST RP Dictated By: Edmond Phipps MD Signed By: <Electronically signed by Edmond Phipps MD in OV> 10/11/24 1008 DD/ 9 TD/TT: 10/11/24924 Swimming Pool Cleaner: us Loreto Barragan MD IMG XR PROCEDURES Final Resul t * Urinalysis, Complete, with Reflex to Culture (10/11/2024 9:04 AM EST) Color Urine Yellow [facility] Appearance Urine Clear [facility] PH 6.0 5.0 - 9.0 [facility] Glucose Urine UA Negative Negative mg/dL [facility] Urine Blood Negative Negative [facility] Specific [place] - Urine 1.010 1.005 - 1.025 [facility] Urine Protein Negative Neg-Trace mg/dL [facility] Urine Ketones Negative Negative mg/dL [facility] Nitrite Urine Negative Negative [facility] Leukocyte Esterase Urine Negative Negative [facility] RBC Urine 0-2 0 - 2 /HPF [facility] Urine WBC 0-5 0 - 5 /HPF [facility] Urine Squamous Epithelial Cell 0-2 0 - 2 /HPF [facility] Urine Bacteria None Seen None Seen [facility] Hyaline Casts, Urine 0-2 0 - 2 /LPF [facility] Urine 10/11/2024 9:04 AM EST 10/11/2024 11:27 AM EST Narrative [facility] - 10/11/2024 11:47 AM EST Urine, Clean Catch us Loreto Barragan MD LAB URINE ORDERABLES Final Re sult Performing Organization Address [facility] Co de Phone Number [facility] [address] [place] [address] [phone] * Sed Rate by Modified Westergren (10/10/2024 10:59 AM EST) Erythrocyte Sedimentation Rate 7 0 - 20 MM/HR [facility] Comment:Patients with polycy themia and many hemoglobin abnormalitiesmay have depressed sed rates whereas patients with anemiamay have elevated sed rates. Blood Venous blood specimen / Unknown 10/10/2024 10:59 AM EST 10/10/2024 2:00 PM EST Loreto Barragan MD LAB BLOOD ORDERABLES Final Re sult Performing Organization Address [facility] de Phone Number [facility] [address] [place] [phone] * Vitamin D, 25-Hydroxy, Total, Immunoassay (10/10/2024 10:59 AM EST) Vitamin D 25-OH Total 30.7 >30 ng/mL [facility] Comment:Health Based Referen ce Values*< 20 ng/mL Eljmadcsn97-78 ng/mL Insufficient> 30 ng/mL Sufficient*Anish PATINO. N Engl J Med. 2007;357:266-280Care must be taken in interpreting Vitamin D results fromdifferent laboratories and methodologies. Published datademonstrated that results from patients undergoinghemodialysis may show a negative bias when tested withvarious automated 25-OH vitamin D assays when compared toLC-MS/MS.When testing samples from patients whose predominant form ofVitamin D is Vitamin D2, such as patients receiving VitaminD2 supplementation, results that are subtherapeutic shouldbe confirmed with another method such as LC-MS/MS. Blood Venous blood specimen / Unknown 10/10/2024 10:59 AM EST 10/10/2024 2:07 PM EST Loreto Barragan MD LAB BLOOD ORDERABLES Final Re sult [facility] [address] [place] [phone] documented in this encounter Visit Diagnoses Diagnosis Renal angiomyolipoma- Primary Benign neoplasm of kidney, except pelvis Pain of right hip Right-sided thoracic back pain, unspecified chronicity Flank pain, chronic documented in this encounter Additional Health Concerns Assessment Noted Time PHQ-9 Depression Total Score: 0 10/10/19 25 10:55 AM EST documented as of this encounter Care Teams Blower And Compressor Assembler Relationship Specialty Start Date End Date Name, MD Brandon [address] [place] [address] PCP - General Family Medicine 09/19/18 documented as of this encounter
--- OUTSIDE RECORDS SUMMARY | 2024-11-06 08:47 | XMS_ITS | Encounter Summary ---
Author Organization [employer] Address [address] [facility] [address] [place] [address] Care Team Providers Care Floater Operator Name Role Phone Name, Brandon FUNEZ Primary Care Provider [phone] Encounter Details Date Type Department Care Team [...] documented as of this encounter Care Teams Floater Operator Relationship Specialty Start Date End Date Name, MD Brandon [address] [place] [address] PCP - General Family Medicine 09/19/18 documented as of this encounter
--- OUTSIDE RECORDS SUMMARY | 2024-11-06 08:47 | XMS_ITS | Encounter Summary ---
Author Organization [employer] Address [address] [facility] [address] [place] [address] Care Team Providers Care Surgical Sales Representative Name Role Phone Name, Brandon FUNEZ Primary Care Provider [phone] Encounter Details Date Type Department Care Team ([facility] Contact Info) Description 10/10/2024 Telephone C [facility] [address] [place], [place] [phone] Loreto Barragan MD [address] [place] [address] Social History Tobacco Use Types Packs/Day Years [...] encounter Miscellaneous Notes * Telephone Encounter - Loreto Barragan MD - 10/10/2024 3:46 PM EST Result Communication Resulted Orders Vitamin D, 25-Hydroxy, Total, Immunoassay Result Value Ref Range Vitamin D 25-OH Total 30.7 >30 ng/mL Comment: Health Based Reference Values*< 20 ng/mL Mglfpeovq67-82 ng/mL Insufficient> 30 ng/mL Sufficient*Anish PATINO. N [...] confirmed with another method such as LC-MS/MS. Sed Rate by Modified Westergren Result Value Ref Range Erythrocyte Sedimentation Rate 7 0 - 20 MM/HR Comment: Patients with polycythemia and many hemoglobin abnormalitiesmay have depressed sed rates whereas patients with anemiamay have elevated sed rates. 3:46 PM Results were successfully communicated with the patient and they acknowledged their understanding. Result Communication Resulted Orders Vitamin D, 25-Hydroxy, Total, Immunoassay Result Value Ref Range Vitamin D 25-OH Total 30.7 >30 ng/mL Comment: Health Based Reference Values*< 20 ng/mL Hwlpyklse54-63 ng/mL Insufficient> 30 ng/mL Sufficient*Anish PATINO. N [...] confirmed with another method such as LC-MS/MS. Sed Rate by Modified Westergren Result Value Ref Range Erythrocyte Sedimentation Rate 7 0 - 20 MM/HR Comment: Patients with polycythemia and many hemoglobin abnormalitiesmay have depressed sed rates whereas patients with anemiamay have elevated sed rates. 3:46 PM Results were successfully communicated with the patient and they acknowledged their understanding. documented in this encounter Plan of Treatment Not on file documented as of this encounter Visit Diagnoses Not on filedocumented in this encounter Additional Health Concerns Assessment Noted Time PHQ-9 Depression Total Score: 0 10/10/19 25 10:55 AM EST documented as of this encounter Care Teams Surgical Sales Representative Relationship Specialty Start Date End Date Name, MD Brandon [address] [place] [address] PCP - General Family Medicine 09/19/18 documented as of this encounter
--- OUTSIDE RECORDS SUMMARY | 2024-11-06 08:47 | XMS_ITS | Clinical Summary ---
Author Organization [employer] Address [address] [facility] 7t [place] [address] Care Team Providers Care Manufacturer Agent Name Role Phone Name, Brandon FUNEZ Primary Care Provider [phone] Allergies Active Allergy Reactions Criticality Noted Date [...] Description 10/10/2024 10:15 AM EST Office Visit [facility] [address] [place] [address] Loreto Barragan MD Renal angiomyolipoma (Primary Dx); Pain of right hip; Right-sided thoracic back pain, unspecified chronicity; Flank pain, chronic 10/10/2024 Telephone [facility] [address] [place] [address] Loreto Barragan MD 10/10/2024 Travel 10/04/2024 Telephone [facility] [address] [place] [address] Name, MD Brandon Chart Prep 10/02/2024 Telephone [facility] [address] [place] [address] Name, MD Brandon 08/06/2024 Telephone [facility] [address] [place] [address] Name, MD Brandon from Last 3 Months Immunizations Name Administration [...] of 3 - 19+ 3-dose series) 1989 Pneumococcal Vaccine: 50+ Years (1 of 1 - PCV) 2020 Alcohol/Substance Use Screening 04/09/2025 04/09/2024 SDOH Screening [...] AM EST Renal angiomyolipoma Flank pain, chronic SED RATE BY MODIFIED WESTERGREN Routine 10/10/2024 10:59 AM EST Right-sided thoracic back pain, unspecified chronicity VITAMIN D,25-OH,TOTAL,IA Routine 10/10/2024 10:59 AM EST Renal angiomyolipoma Pain of right hip Right-sided thoracic back pain, unspecified chronicity BI US BREAST COMPLETE BILATERAL Routine 07/25/2024 11:00 AM EST PAP SMEAR Routine 01/25/2024 3:45 PM EDT HEPATITIS C ANTIBODY Routine 07/22/2023 8:46 AM EDT Need for hepatitis C screening test HM COLONOSCOPY Routine 05/09/2020 ZZZ HISTORICAL HPV MRNA E6/E7 Routine 06/21/2019 9:30 AM EDT from Last 3 Months or Most Recently Relevant to Health Maintenance Results * XR Thoracic Spine 2 Views (10/11/2024 9:10 AM EST) Anatomical Region Laterality Modality Spine, T-spine Radiographic Argelia ging 10/11/2024 9:10 AM EST Narrative 10/11/2024 10:11 AM EST ? [facility] ?[address] ?[place] [address] ?XRay Report ? Signed ? Patient: Kyle Montano,Genesis N ?MR#: [id number] ?? [id number] ? : 1970 ?Acct:[id number] ? Age/Sex: 54 / F ?ADM Date: 01/23/25 ? Loc: HO.HHCL ? Attending Dr: Loreto Barragan MD ? Ordering Physician: Loreto Barragan MD ?? Date of Service: 10/11/24 ?? Procedure(s): XR thoracic spine 2V ?? Accession Number(s): [id number] ? cc: Loreto Barragan MD ? EXAMINATION: [...] ? DD/ 9 ? TD/TT: 10/11/[address] ? New Car Inspector: ? Procedure Note Derek, Ramón - 10/11/2024 [place] [address] XRay Report Signed Patient: Genesis Wagner [facility]#: [id number] : 1970Acct:[id number] Age/Sex: 54 / FADM Date: 10/11/24 Loc: HO.HHCL Attending Dr: Loreto Barragan MD Ordering Physician: Loreto Barragan MD Date of Service: 10/11/24 Procedure(s): XR thoracic spine 2V Accession Number(s): [id number] cc: Loreto Barragan MD EXAMINATION: XR THORACIC [...] Edmond Phipps MD 10/11/2024 10:08 AM EST Dictated By: Edmond Phipps MD Signed By: <Electronically signed by Edmond Phipps MD in OV> 10/11/24 1008 DD/ 9 TD/TT: 10/11/24924 New Car Inspector: Loreto Barragan MD IMG XR PROCEDURES Final Resul t * Urinalysis, Complete, with Reflex to Culture (10/11/2024 9:04 AM EST) Color Urine Yellow [facility] Appearance Urine Clear [facility] PH 6.0 5.0 - 9.0 [facility] Glucose Urine UA Negative Negative mg/dL [facility] Urine Blood Negative Negative [facility] Specific Horatio - Urine 1.010 1.005 - 1.025 [facility] Urine Protein Negative Neg-Trace mg/dL [facility] Urine Ketones Negative Negative mg/dL [facility] Nitrite Urine Negative Negative [facility] Leukocyte Esterase Urine Negative Negative [facility] RBC Urine 0-2 0 - 2 /HPF [facility] Urine WBC 0-5 0 - 5 /HPF [facility] Urine Squamous Epithelial Cell 0-2 0 - 2 /HPF [facility] Urine Bacteria None Seen None Seen [facility] Hyaline Casts, Urine 0-2 0 - 2 /LPF [facility] Urine 10/11/2024 9:04 AM EST 10/11/2024 11:27 AM EST Narrative [facility] - 10/11/2024 11:47 AM EST Urine, Clean Catch us Loreto Barragan MD LAB URINE ORDERABLES Final Re sult Performing Organization Address City/[facility]/ZIP Co de Phone Number [facility] [address] [place] [address] [phone] * Vitamin D, 25-Hydroxy, Total, Immunoassay (10/10/2024 10:59 AM EST) Vitamin D 25-OH Total 30.7 >30 ng/mL [facility] Comment:Health Based Referen ce Values*< 20 ng/mL Xzmxjtoml88-30 ng/mL Insufficient> 30 ng/mL Sufficient*Anish PATINO. N [...] 10:59 AM EST 10/10/2024 2:07 PM EST Result [facility] Loreto Barragan MD LAB BLOOD ORDERABLES Final Re sult Performing Organization Address City/[facility]/ZIP Co de Phone Number [facility] [address] [place] [address] [phone] * Sed Rate by Modified Shannon (10/10/2024 10:59 AM EST) Erythrocyte Sedimentation Rate 7 0 - 20 MM/HR [facility] Comment:Patients with polycy themia and many hemoglobin abnormalitiesmay have depressed sed rates whereas patients with anemiamay have elevated sed rates. Blood Venous blood specimen / Unknown 10/10/2024 10:59 AM EST 10/10/2024 2:00 PM EST Loreto Barragan MD LAB BLOOD ORDERABLES Final Re sult [facility] [address] [place] [address] [phone] * BI US Breast Complete Bilateral (07/25/2024 11:00 AM EST) Anatomical Region Laterality Modality Breast Bilateral Ultrasound 07/25/2024 11:0 0 AM EST Narrative 07/25/2024 12:36 PM EST ? [facility] [place] ? [address] ?[place] [address] ? Ultrasound Report ? Signed ? Patient: Genesis Wagner ?MR#: [id number] ?? [id number] ? : 1970 ?Acct:[id number] ? Age/Sex: 54 / F ?ADM Date: 07/25/24 ? Loc: HO.MAMMO ? Attending Dr: Hayder An MD ? Ordering Physician: Hayder An MD ?? Date of Service: 07/25/24 ?? Procedure(s): US breast BI complete ?? Accession Number(s): [id number] ? cc: Michelle Joyce CNM; Hayder An MD; Brandon Kilgore MD; Chery Marte FILER METAL PATTERNS ? EXAMINATION: ?? US SCREENING ULTRASOUND BREAST, [...] DD/ 1100 ? TD/TT: 07/25/24 1131 ? New Car Inspector: ? Procedure Note Donotrosibelinterpreter, Image - 07/25/2024 [place] [facility] [address] [place], [place] [address] Ultrasound Report Signed Patient: Genesis Wagner [facility]#: [id number] : 1970Acct:[id number] Age/Sex: 54 / FADM Date: 07/25/24 Loc: HO.MAMMO Attending Dr: Hayder An MD Ordering Physician: Hayder An MD Date of Service: 07/25/24 Procedure(s): US breast BI complete Accession Number(s): [id number] cc: Michelle Joyce CNM; Hayder An MD; Brandon Kilgore MD; Sarah Marte FILER METAL PATTERNS EXAMINATION: US SCREENING ULTRASOUND BREAST, BILATERAL CLINICAL [...] by: Edmond Phipps MD 07/25/2024 12:32 PM [facility] Dictated By: Edmond Phipps MD Signed By: <Electronically signed by Edmond Phipps MD in OV> 07/25/24 1232 DD/ 1100 TD/TT: 07/25/24 1131 New Car Inspector: [facility] External Provider IMG US PROCEDURES Final Result * Pap Smear (01/25/2024 3:45 PM EDT) 01/25/2024 3:45 PM EDT 01/27/2024 7:00 AM EDT [facility] - 02/11/2024 5:47 PM EDT ----- ------- Name: Genesis Wagner ?Age/Sex: 53/F ? : 1970 Unit#: [id number] ?? Attend Dr: Michelle Joyce CNM ?Re01/25/24 ?Status: DEP REF ? Location: HO.LNP ?Disch: ? ----- ------- SPEC : [id number] ? RECD: 01/27/24 ? STATUS: ??SOUT ? REQ NUM: [id number] ? BRUNO: 01/25/24 ? SUBM DR: Michelle Joyce CNJon ? ENTERED: ??01/27/24 ?SP TYPE: Pap Smr ?OTHR DR: NameBrandon MD ? ORDERED: ??Pap Smear ? Interpretation ?? Satisfactory for evaluation. ?? Negative for intraepithelial lesion or malignancy. ? HPV mRNA E6/E7: ?NOT DETECTED ? This assay detects E6/E7 viral messenger RNA (mRNA) from 14 high-risk HPV types (16, 18, ?? 31, 33, 35, 39, 45, 51, 52, 56, 58, 59, 66, 68) ? HPV testing performed by [facility], [place], [place]. ??See reference laboratory ?? portion of the EMR for entire report. ?Clinical Information LMP: 04/2023 Previous PAP test: 2019, WNL ? Material Received ?? ThinPrep-Cervical Copies To: ?? Michelle Joyce CNM ?? [address] [facility] ?? [place] [address] ?? [phone] ?? Name,Brandon FUNEZ ?? [address] [facility] ?? [place] [address] ?? [phone] ----- ------- Signed (signature on file) Sharon Rae Farmer 02/11/241746 ? ----- ------- ? END OF REPORT ? us Generic External Data Provider LAB CYTOLOGY MARGIE WHITFIELD Final Result [facility] [address] [place] [address] [phone] * Hepatitis C Ab (07/22/2023 8:46 AM EDT) Pathologist [facility] Hepatitis C Antibody Nonreactive Nonreactive [facility] Comment:Antibodies to HCV no t detected; does not exclude early acuteHCV infection. Blood Venous blood specimen / Unknown 07/22/2023 8:46 AM EDT 07/22/2023 11:13 AM EDT Brandon Kilgore MD LAB BLOOD ORDERABLES Final Resul t [facility] [address] [place] [address] [phone] * Hm Colonoscopy (05/09/2020) Colonoscopy Normal Normal Kumar Collins MD HEALTH MAINTENANCE Final Result * HPV mRNA E6/E7 (06/21/2019 9:30 AM EDT) Pathologist [facility] HPV mRNA E6/E7 Not Detected NOT DETECTED [facility] Comment: This test was performed using the APTIMA(R) HPV Assay ([employer] This assay detects E6/E7 viral messenger RNA (mRNA) from 14 high-risk HPV types (16,18,31,33,35,39,45,51, 52,56,58,59,66,68). For additional information please refer to: http://education.[employer]/faq/YJW715r2 (This link is being provided for informational/ educational purposes only.) The analytical performance characteristics of this assay have been determined by [employer] [place], [place]. The modifications have not been cleared or approved by the FDA. This assay has been validated pursuant to the CLIA regulations and is used for clinical purposes. Test Performed by [employer], [facility] [place], [address] [place] [address] Tai Gupta M.D., Ph.D., Director of Laboratories , CLIA [id number] Please note: ??Effective 05/31/2016, HPV testing will be performed using [employer]'s APTIMA test which targets mRNA. Detecting mRNA instead of DNA, as in older methods, offers significant improvements in specificity. 06/21/2019 9:30 AM EDT Sharri Stout CNM HISTORICAL/NON ORDERABLE LABS Final Result [facility] [address] from Last 3 Months or Most Recently Relevant to Health Maintenance [place] [address] HMO Care Teams Manufacturer Agent Relationship Specialty Start Date End Date Name, MD Brandon [address] [place] [address] PCP - General Family Medicine 09/19/18
== END 2024-11-06 09:03 | disposition home or self-care (01) ==
PROVIDERS: PCP Internal Medicine Geriatric Medicine; Referring Provider Internal Medicine Geriatric Medicine; Visit Provider Registered Nurse Emergency
DX: M53.3 Sacrococcygeal disorders, not elsewhere classified (principal); M54.50 Low back pain, unspecified; M47.816 Spondylosis without myelopathy or radiculopathy, lumbar region
CPT/HCPCS: 99204

== ENCOUNTER 2025-01-15 13:07 | Outpatient (AMB) | payer BC, SELFPAY ==
--- NOTE | 2025-01-15 13:08 | MHC.OFFVIS ---
Vital Signs 01/15/25 13:17 Height 5 ft 6 in Weight 182 lb BMI 29.4 BP 108/53 L Blood Pressure Location Lt brachial Position Sitting Pulse 66 Intake Visit Reasons: 6 month breast exam Intake Note: Patient is seen in office for 6 month follow up visit, breast exam. Pt c/o: denies any concerns regarding the breast, does not feel any lumps or bumps us B:07/25/24 mm: 05/31/24 Allergies penicillin G Allergy (Unknown, Verified 11/06/24 08:33) hives Medication List - Last Reconciled 01/21/25 by Hayder An MD methocarbamol 500 mg PO TID PRN HPI Comments Details: 54-year-old female patient with a history of dense breasts returning for a six-month follow-up examination. She became concerned after a friend was diagnosed with breast cancer after history of dense breast tissue as well. The patient's last mammogram performed on 05/31/2024 revealed a breast density score of C and no mammographic evidence of malignancy (BI-RADS 1). Since her last visit she denies any new palpable mass, skin change, nipple discharge or enlarged lymph nodes. Her past history is negative for breast cancer or breast surgeries. Her family history is also negative for breast cancer. She continues to do monthly self-examination so as well. 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 Sexual orientation: Straight/Heterosexual Gender identity: Female Female Reproductive History Menstrual Age of Menarche: 12 Review of Systems Const All systems reviewed & are unremarkable except as noted in HPI and below Denies chills, Denies fever(s), Denies headache(s), Denies poor appetite and Denies weakness ENT Denies headache(s) Card Denies chest pain, Denies irregular heart rhythm, Denies palpitations and Denies dyspnea Resp Denies cough, Denies excessive phlegm production and Denies dyspnea GI Denies abdominal pain, Denies bloating, Denies change in bowel habits, Denies constipation, Denies heartburn, Denies diarrhea, Denies nausea and Denies vomiting Denies urinary frequency Musc Denies back pain, Denies muscle weakness and Denies numbness Skin/Breast Denies changing lesions and Denies unusual bruising Neuro Denies headache(s), Denies numbness, Denies paresthesias and Denies weakness Psych Denies anxiety and Denies depression Endo Denies palpitations Mike/Lymph Denies lymphadenopathy Physical Exam Vital Signs: Last Vital Signs Pulse 66 01/15/25 13:17 BP 108/53 L 01/15/25 13:17 BMI result Body Mass Index 29.4 Const General: cooperative and no acute distress Nutritional Appearance: well nourished Orientation/consciousness: patient oriented x3 Limitations: no limitations HEENT Head: Yes normocephalic and Yes atraumatic Ears: hearing grossly normal bilaterally Chest Other: Bilateral extremely dense breasts Left breast: No skin change, no nipple retraction, no nipple discharge, no palpable mass, no enlarged lymph nodes. Right breast: No skin change, no nipple retraction, no nipple discharge, no palpable mass, no enlarged lymph nodes Resp Effort & Inspection: normal respiratory effort, no audible wheezes, no cough and no respiratory distress Cardio Jugular venous distension: no JVD GI Inspection: Yes normal to inspection Skin Other: Warm, dry, no rash Neuro General: patient oriented x3 Extrem General: Yes no clubbing, cyanosis or edema Assessment & Plan Assessment & Plan (1) Heterogeneously dense tissue of both breasts on mammography: Code(s): R92.333 - Mammographic heterogeneous density, bilateral breasts Category: Medical Plan 54-year-old female patient returning for six-month follow-up expressed examination due to dense breasts. Mammogram revealed a category C breast density. She denies any new breast symptoms in either breast. Examination today revealed no suspicious findings in either breast. The breast exam does revealed some mild fibrocystic change but no discrete mass or enlarged lymph nodes. I recommend the patient continue with her annual radiologic screening and monthly self examinations. She should continue have yearly clinical breast examinations as well. She should follow up as needed. Coding Level of Care Code Est Pt Level 3 (09843) Diagnoses Heterogeneously dense tissue of both breasts on mammography R92.333
[2025-01-15 13:17] VITALS: BP 108/53; PULSE 66; BMI 29.4
--- OUTSIDE RECORDS SUMMARY | 2025-01-15 15:08 | XMS_ITS | Clinical Summary ---
Author Organization [employer] Address [address] [facility] 7[address] [place] [address] Care Team Providers Care Torch Heater Name Role Phone Name, Brandon FUNEZ Primary Care Provider [phone] Allergies Active Allergy Reactions Criticality Noted Date [...] Encounters Date Type Department Care Team Description 12/21/2024 Telephone [facility] [address] [place] [address] Becky Hester [place] MARCH RECALLS 11/23/2024 Telephone [facility] [address] [place] [address] Becky Hester [place] december recalls 11/13/2024 Telephone [facility] [address] [place] [address] Becky Hester [place] december recalls from Last 3 Months Immunizations Name Administration [...] is your housing situation today? I have maileradha loco 07/17/[address] you [...] Procedure Name Priority Date/Time Associated Diagnosis Comments BI US BREAST COMPLETE BILATERAL Routine 07/25/2024 11:00 AM EST PAP SMEAR Routine 01/25/2024 3:45 PM EDT HEPATITIS C ANTIBODY Routine 07/22/2023 8:46 AM EDT Need for hepatitis C screening test HM COLONOSCOPY Routine 05/09/2020 ZZZ HISTORICAL HPV MRNA E6/E7 Routine 06/21/2019 9:30 AM EDT from Last 3 Months or Most Recently Relevant to Health Maintenance Results * BI US Breast Complete Bilateral (07/25/2024 11:00 AM EST) Anatomical Region Laterality Modality Breast Bilateral Ultrasound 07/25/2024 11:0 0 AM EST Narrative 07/25/2024 12:36 PM EST ? [facility] ? [address] ?[place] [address] ? Ultrasound Report ? Signed ? Patient: Genesis Wagner ?MR#: [id number] ?? [id number] ? : 1970 ?Acct:[id number] ? Age/Sex: 54 / F ?ADM Date: 07/25/24 ? Loc: HO.MAMMO ? Attending Dr: Hayder An MD ? Ordering Physician: Hayder An MD ?? Date of Service: 07/25/24 ?? Procedure(s): US breast BI complete ?? Accession Number(s): [id number] ? cc: Michelle Joyce CNM; Hayder An MD; Brandon Kilgore MD; Chery Marte PRACTICE BILLING ASSOCIATE ? EXAMINATION: ?? US SCREENING ULTRASOUND BREAST, [...] DD/ 1100 ? TD/TT: 07/25/24 1131 ? Cost Control Analyst: ? Procedure Note Donotuseinterpreter, Image - [facility]25/[facility] [address] [place] [address] Ultrasound Report Signed Patient: eGnesis Wagner [facility]#: [id number] : 1970Acct:[id number] Age/Sex: 54 / FADM Date: 07/25/24 Loc: HO.MAMMO Attending Dr: Hayder An MD Ordering Physician: Hayder An MD Date of Service: 07/25/24 Procedure(s): US breast BI complete Accession Number(s): [id number] cc: Michelle Joyce CNM; Hayder An MD; Brandon Kilgore MD; Sarah Marte PRACTICE BILLING ASSOCIATE EXAMINATION: US SCREENING ULTRASOUND BREAST, BILATERAL CLINICAL [...] by: Edmond Phipps MD 07/25/2024 12:32 PM EST Dictated By: Edmond Phipps MD Signed By: <Electronically signed by Edmond Phipps MD in OV> 07/25/24 1232 DD/ 1100 TD/TT: 07/25/24 1131 Cost Control Analyst: us [facility] External Provider IMG US PROCEDURES Final Result * Pap Smear (01/25/2024 3:45 PM EDT) 01/25/2024 3:45 PM EDT 01/27/2024 7:00 AM EDT [facility] - 02/11/2024 5:47 PM EDT ----- ------- Name: Genesis Wagner ?Age/Sex: 53/F ? : 1970 Unit#: [id number] ?? Attend Dr: Michelle Joyce CNM ?Re01/25/24 ?Status: DEP REF ? Location: HO.LNP ?Disch: ? ----- ------- SPEC : [id number] ? RECD: 01/27/24 ? STATUS: ??SOUT ? REQ NUM: [id number] ? BRUNO: 01/25/24 ? SUBM DR: Michelle [...] 66, 68) ? HPV testing performed by [facility], [place], [place]. ??See reference laboratory ?? portion of the EMR for entire report. ?Clinical Information LMP: 04/2023 Previous PAP test: 2019, WNL ? Material Received ?? ThinPrep-Cervical Copies To: ?? Michelle Joyce CNM ?? [address] [place] [facility] ?? [place] [address] ?? [phone] ?? Name,Brandon FUNEZ ?? [address] [facility] ?? [place] [address] ?? [phone] ----- ------- Signed (signature on file) Sharon Rae Farmer 02/11/241746 ? ----- ------- ? END OF REPORT ? us Generic External Data Provider LAB CYTOLOGY MARGIE WHITFIELD Final Result [facility] [address] [facility] [place] [address] [phone] * Hepatitis C Ab (07/22/2023 8:46 AM EDT) Hepatitis C Antibody Nonreactive Nonreactive [facility] Comment:Antibodies to HCV no t detected; does not exclude early acuteHCV infection. Blood Venous blood specimen / Unknown 07/22/2023 8:46 AM EDT 07/22/2023 11:13 AM EDT Brandno Kilgore MD LAB BLOOD ORDERABLES Final Resul t Performing Organization Address City/State/[facility] Co de Phone Number [facility] [address] [place] [phone] * Hm Colonoscopy (05/09/2020) Colonoscopy Normal Normal Kumar Collins MD HEALTH MAINTENANCE Final Result * HPV mRNA E6/E7 (06/21/2019 9:30 AM EDT) HPV mRNA E6/E7 Not Detected NOT DETECTED [facility] Comment: This test was performed using the APTIMA(R) HPV Assay ([employer] This assay detects E6/E7 viral messenger RNA (mRNA) from 14 high-risk HPV types (16,18,31,33,35,39,45,51, 52,56,58,59,66,68). For additional information please refer to: http://education.[employer]/faq/TJW449i7 (This link is being provided for informational/ educational purposes only.) The analytical performance characteristics of this assay have been determined by [employer] [place], [place]. The modifications have not been cleared or approved by the FDA. This assay has been validated pursuant to the CLIA regulations and is used for clinical purposes. Test Performed by [facility], [facility], [address] [place] [address] Tai Gupta M.D., Ph.D., Director of Laboratories , CLIA [id number] Please note: ??Effective 05/31/2016, HPV testing will be performed using [employer]'s APTIMA test which targets mRNA. Detecting mRNA instead of DNA, as in older methods, offers significant improvements in specificity. 06/21/2019 9:30 AM EDT Sharri Stout CNM HISTORICAL/NON ORDERABLE LABS Final Result [facility] [address] from Last 3 Months or Most Recently Relevant to Health Maintenance [place] [address] [address] HMO Care Teams Torch Heater Relationship Specialty Start Date End Date Name, MD Brandon [address] [place] [phone] PCP - General Family Medicine 09/19/18
--- OUTSIDE RECORDS SUMMARY | 2025-01-15 15:08 | XMS_ITS | Encounter Summary ---
Author Organization [employer] Address [address] [place] [address] 7t [place] [address] Care Team Providers Care Food Production Associate Name Role Phone Name, Brandon FUNEZ Primary Care Provider [phone] Encounter Details Date Type Department Care Team ([facility] st Contact Info) Description 03/08/2023 Abstract [facility] [address] [place], [place] [phone] Name, MD Brandon [address] [place] [phone] Social History Tobacco Use Types Packs/Day Years [...] on filedocumented in this encounter Care Teams Food Production Associate Relationship Specialty Start Date End Date Name, MD Brandon [address] [place] [address] [phone] PCP - General Family Medicine 09/19/18 documented as of this encounter
== END 2025-01-15 13:35 | disposition home or self-care (01) ==
LOC: HO.HGS 13:08
PROVIDERS: PCP Internal Medicine Geriatric Medicine; Visit Provider Surgery
DX: R92.333 Mammographic heterogeneous density, bilateral breasts (principal)
CPT/HCPCS: 99213

== ENCOUNTER → 2025-01-15 13:07 | Outpatient (BNVA) | payer BC, SELFPAY | PROVIDERS: PCP Internal Medicine Geriatric Medicine; Visit Provider Surgery ==

== ENCOUNTER 2025-01-30 10:00 | Outpatient (REF) | payer BC, SELFPAY ==
--- OUTSIDE RECORDS SUMMARY | 2025-01-30 11:49 | XMS_ITS | Encounter Summary ---
Author Organization [employer] Address [address] [facility] 7t [place] [address] Care Team Providers Care Shopfitter Name Role Phone Name, Brandon FUNEZ Primary Care Provider [phone] Encounter Details Date Type Department Care Team ([facility] st Contact Info) Description 03/08/2023 Abstract [facility] MED & PEDS [address] [place], [place] [phone] Name, MD Brandon [address] [place] [address] [phone] Social History Tobacco Use Types Packs/Day Years [...] on filedocumented in this encounter Care Teams Shopfitter Relationship Specialty Start Date End Date Name, MD Brandon [address] [place] [address] [phone] PCP - General Family Medicine 09/19/18 documented as of this encounter
--- OUTSIDE RECORDS SUMMARY | 2025-01-30 11:49 | XMS_ITS | Clinical Summary ---
Author Organization [email or web address] Address [address] [facility] 7t [place] [address] Care Team Providers Care Tower Crane Operator Name Role Phone Name, Brandon FUNEZ Primary Care Provider [phone] Allergies Active Allergy Reactions Criticality Noted Date [...] Type Department Care Team Description 12/21/2024 Telephone [facility] [address] [place] [phone] Kacie [place] Pena MARCH RECALLS 11/23/2024 Telephone [facility] [address], [place] [address] Becky Hester [place] december recalls 11/13/2024 Telephone [facility] [address], [place] [address] Becky Hester [place] december recalls from Last [...] EST Narrative 07/25/2024 12:36 PM EST ? [facility] ? [address] ?[place] [address] ? Ultrasound Report ? Signed ? Patient: Genesis Wagner ?MR#: [id number] ?? [id number] ? : 1970 ?Acct:[id number] ? Age/Sex: 54 / F ?ADM Date: 07/25/24 ? Loc: HO.MAMMO ? Attending Dr: Hayder An MD ? Ordering Physician: Hayder An MD ?? Date of Service: 07/25/24 ?? Procedure(s): US breast BI complete ?? Accession Number(s): [id number] ? cc: Michelle Joyce CNM; Hayder An MD; Brandon Kilgore MD; Chery Marte ADZING AND BORING MACHINE HELPER ? EXAMINATION: ?? US SCREENING ULTRASOUND BREAST, [...] DD/ 1100 ? TD/TT: 07/25/24 1131 ? Livestock Caretaker: ? Procedure Note Donotuseinterpreter, Image - 07/25/2024 [facility] [address] [place] [address] Ultrasound Report Signed Patient: Genesis Wagner NMR#: [id number] : 1970Acct:[id number] Age/Sex: 54 / FADM Date: 07/25/24 Loc: HO.MAMMO Attending Dr: Hayder An MD Ordering Physician: Hayder An MD Date of Service: 07/25/24 Procedure(s): US breast BI complete Accession Number(s): [id number] cc: Michelle Joyce CNM; Hayder An MD; Brandon Kilgore MD; Sarah Marte ADZING AND BORING MACHINE HELPER EXAMINATION: US SCREENING ULTRASOUND BREAST, BILATERAL CLINICAL [...] 07/25/24 1232 DD/ 1100 TD/TT: 07/25/24 1131 Livestock Caretaker: us [facility] External Provider IMG US PROCEDURES Final Result * Pap Smear (01/25/2024 3:45 PM EDT) 01/25/2024 3:45 PM EDT 01/27/2024 7:00 AM EDT [facility] LABS - 02/11/2024 5:47 PM EDT ----- ------- Name: Genesis Wagner ?Age/Sex: 53/F ? : 1970 Unit#: [id number] ?? Attend Dr: Michelle Joyce CNM ?Re01/25/24 ?Status: DEP REF ? Location: HO.LNP ?Disch: ? ----- ------- SPEC : [id number] ? RECD: 01/27/24 ? STATUS: ??SOUT ? REQ NUM: [id number] ? BRUNO: 01/25/24 ? SUBM DR: Michelle [...] 66, 68) ? HPV testing performed by [facility], [place], [place]. ??See reference laboratory ?? portion of the EMR for entire report. ?Clinical Information LMP: 04/2023 Previous PAP test: 2019, WNL ? Material Received ?? ThinPrep-Cervical Copies To: ?? Michelle Joyce CNM ?? [address] [facility] [place] [facility] ?? [place] [address] ?? [phone] ?? Name,Brandon FUNEZ ?? [address] [facility] ?? [place] [address] ?? [phone] ----- ------- Signed (signature on file) Sharon Rae Farmer 02/11/241746 ? ----- ------- ? END OF REPORT ? us Generic External Data Provider LAB CYTOLOGY MARGIE WHITFIELD Final Result [facility] [address] [facility] [place] [address] [phone] * Hepatitis C Ab (07/22/2023 8:46 AM EDT) Pathologist [facility] Hepatitis C Antibody Nonreactive Nonreactive [facility] Comment:Antibodies to HCV no t detected; does not exclude early acuteHCV infection. Blood Venous blood specimen / Unknown 07/22/2023 8:46 AM EDT 07/22/2023 11:13 AM EDT Brandon Kilgore MD LAB BLOOD ORDERABLES Final Resul t Performing Organization Address City/[facility] Co tx Phone Number [facility] [address] [place] [address] [phone] * Hm Colonoscopy (05/09/2020) Colonoscopy Normal Normal Kumar Collins MD HEALTH MAINTENANCE Final Result * HPV mRNA E6/E7 (06/21/2019 9:30 AM EDT) HPV mRNA E6/E7 Not Detected NOT DETECTED [facility] Comment: This test was performed using the APTIMA(R) HPV Assay ([employer] This assay detects E6/E7 viral messenger RNA (mRNA) from 14 high-risk HPV types (16,18,31,33,35,39,45,51, 52,56,58,59,66,68). For additional information please refer to: http://education.ibeatyou/faq/OYW955x7 (This link is being provided for informational/ educational purposes only.) The analytical performance characteristics of this assay have been determined by [employer] [place], [place]. The modifications have not been cleared or approved by the FDA. This assay has been validated pursuant to the CLIA regulations and is used for clinical purposes. Test Performed by [facility], [facility], [address] [place] [address] Tai Gupta M.D., Ph.D., Director of Laboratories , CLIA [id number] Please note: ??Effective 05/31/2016, HPV testing will be performed using [employer]'s APTIMA test which targets mRNA. Detecting mRNA instead of DNA, as in older methods, offers significant improvements in specificity. 06/21/2019 9:30 AM EDT Sharri Stout CNM HISTORICAL/NON ORDERABLE LABS Final Result [facility] [address] from Last 3 Months or Most Recently Relevant to Health Maintenance Insurance HMO Care Teams Tower Crane Operator Relationship Specialty Start Date End Date Name, MD Brandon [address] [place] [phone] PCP - General Family Medicine 09/19/18
[2025-01-31 07:48] LABS: Follicle Stimulating Hormone 37.7 mIU/mL; Lutenizing Hormone 21.1 mIU/mL
== END 2025-01-30 10:01 | disposition home or self-care (01) ==
LOC: HO.LAB 10:00
PROVIDERS: PCP Internal Medicine Geriatric Medicine; Visit Provider Advanced Practice Midwife
DX: Z01.419 Encounter for gynecological examination (general) (routine) without abnormal findings (principal); R23.2 Flushing; N91.2 Amenorrhea, unspecified
CPT/HCPCS: 36415; 83001; 83002

== ENCOUNTER 2025-01-30 10:00 | Outpatient (AMB) | payer BC, SELFPAY ==
--- NOTE | 2025-01-30 10:01 | MHC.OFFVIS ---
Vital Signs 01/30/25 10:02 Height 5 ft 6 in Weight 180 lb BMI 29.0 BP 102/64 Intake Visit Reasons: DRY MOLDER annual exam Neuropsychiatric Aide: Neuropsychiatric Aide Present (Wanda) Allergies penicillin G Allergy (Unknown, Verified 01/30/25 10:02) hives HPI Comments Details: She is a postmenopausal woman presenting for her annual temporary help agency referral clerk examination. She is doing well with temporary help agency referral clerk concerns. She reports no menses for one year next week. Had a day an episode of dark brown mucus with cramps in November. Currently sexually active. Denies any vaginal dryness or irritation. Attempting to eat a healthy diet with calcium and vitamin D and stays active with exercise. Last pap smear; 2023, negative. Last mammogram; 2023. History of uterine fibroids, previous scan decreased stable size. Colonoscopy is UTD. Denies any family history of breast, ovarian or colon cancer. 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 Sexual orientation: Straight/Heterosexual Gender identity: Female Female Reproductive History Menstrual Age of Menarche: 12 Total pregnancies: 1 Full term: 1 Number of Living Children: 1 Date of last pap smear: 01/25/24 (neg pap and hpv) Date of Mammogram: 05/31/24 (Birad 1) Review of Systems Const All systems reviewed & are unremarkable except as noted in HPI and below Reports as per HPI Eyes Reports no additional complaints ENT Reports no additional complaints Card Reports no additional complaints Resp Reports no additional complaints GI Reports as per HPI and Reports no additional complaints Reports as per HPI Musc Reports no additional complaints Skin/Breast Reports as per HPI Neuro Reports no additional complaints Psych Reports no additional complaints Endo Reports no additional complaints Mike/Lymph Reports no additional complaints Aller/Immun Reports no additional complaints Physical Exam Vital Signs: Last Vital Signs BP 102/64 01/30/25 10:02 BMI result Body Mass Index 29.0 Const General: cooperative, healthy appearing, no acute distress, well developed and alert Orientation/consciousness: patient oriented x3 HEENT Head: Yes normal to inspection Eyes General: appearance normal, both eyes and all related structures Neck Neck: Yes normal visual inspection Thyroid: Thyroid normal Chest Chest palpation & inspection: normal inspection of the chest and other (no puckering, dimpling, peau de orange, retraction, discharge, masses) Breast/axilla inspection: normal inspection of the breasts Breast/axilla palpation: normal palpation of the breasts Resp Effort & Inspection: normal respiratory effort GI Inspection: Yes normal to inspection Palpation (GI): Soft to palpation Rectal Exam - Female: deferred General: Yes bladder normal to palpation External Female Exam: normal external appearance and normal appearance of the urethra Speculum Exam - Vagina: normal appearance of the vagina, normal palpation and normal vaginal discharge Speculum Exam - Cervix: normal appearance of the cervix and normal palpation Bimanual exam- vagina & uterus: normal bimanual exam, normal palpation, uterine size normal, bladder normal to palpation, normal palpation and non-tender Bimanual Exam- Adnexa, other: no masses Skin General skin exam: no rashes or lesions noted Rashes: no rashes Neuro General: patient oriented x3 Cognition (Neuro): normal cognition Extrem General: Yes normal to inspection Psych Attitude: cooperative Thought process: Normal thought process present Assessment & Plan Assessment & Plan (1) Encounter for well woman exam with routine gynecological exam: Code(s): Z01.419 - Encounter for gynecological examination (general) (routine) without abnormal findings Category: Medical Plan: Discussed: Current recommendations for pap smears per ASCCP guidelines. Breast awareness, periodic self breast exams and yearly mammogram. Maintain a healthy lifestyle, well balanced diet including Calcium 1,200 mg and Vitamin D 600 IU daily, and routine exercise. Plan LH and FSH. Report any abnormal bleeding patterns. Menopause versus perimenopause diagnosis. Patient verbalizes understanding and agrees to the plan of care. She was given opportunity to ask questions and all questions were answered to the best of my ability. RTO in 1 year for annual temporary help agency referral clerk exam. This note is constructed using voice recognition software. While every effort has been made to ensure accuracy, tobacco sieve operator errors may have been included. (2) Fibroid: Comment: multiple Code(s): D21.9 - Benign neoplasm of connective and other soft tissue, unspecified Category: Medical Plan Plan ultrasound and follow up to check fibroids status. The patient expressed understanding and agreement with the plan of care. All of her questions and concerns were addressed to the best of my ability. Orders: Orders Follicle Stimulating Hormone Today R23.2 - [place] Lutenizing Hormone Today N91.2 - Amenorrhea, unspecified Coding Level of Care Code Est Pt Prev Care 40-64y(53665) Diagnoses Encounter for well woman exam with routine gynecological exam Z01.419 Fibroid D21.9
[2025-01-30 10:02] VITALS: BP 102/64; BMI 29.0
--- OUTSIDE RECORDS SUMMARY | 2025-01-30 10:51 | XMS_ITS | Encounter Summary ---
Author Organization [employer] Address [address] [facility] 7t [place] [address] Care Team Providers Care Rn Documentation Name Role Phone Name, Brandon FUNEZ Primary Care Provider [phone] Encounter Details Date Type Department Care Team ([facility] st Contact Info) Description 03/08/2023 Abstract [facility] MED & PEDS [address] [place], [place] [phone] Name, MD Brandon [address] [place] [address] [phone] Social History Tobacco Use Types Packs/Day Years [...] on filedocumented in this encounter Care Teams Rn Documentation Relationship Specialty Start Date End Date Name, MD Brandon [address] [place] [address] [phone] PCP - General Family Medicine 09/19/18 documented as of this encounter
--- OUTSIDE RECORDS SUMMARY | 2025-01-30 10:51 | XMS_ITS | Clinical Summary ---
Author Organization [employer] Address [address] [facility] 7t [place] [address] Care Team Providers Care Tool Machine Shop Supervisor Name Role Phone Name, Brandon FUNEZ Primary Care Provider Allergies Active Allergy Reactions Criticality Noted Date [...] Type Department Care Team Description 12/21/2024 Telephone [facility] [address] [place] [phone] Kacie [place] Pena MARCH RECALLS 11/23/2024 Telephone [facility] [address], [place] [address] Becky Hester [place] december recalls 11/13/2024 Telephone [facility] [address], [place] [address] Becky Hester [place] december recalls from Last 3 Months Immunizations Immunization Administration Dates Next Due Influenza Injectable Quadriv [...] EST Narrative 07/25/2024 12:36 PM EST ? [facility] ? [address] ?[place] [address] ? Ultrasound Report ? Signed ? Patient: Genesis Wagner ?MR#: [id number] ?? [id number] ? : 1970 ?Acct:[id number] ? Age/Sex: 54 / F ?ADM Date: 07/25/24 ? Loc: HO.MAMMO ? Attending Dr: Hayder An MD ? Ordering Physician: Hayder An MD ?? Date of Service: 07/25/24 ?? Procedure(s): US breast BI complete ?? Accession Number(s): [id number] ? cc: Michelle Joyce CNM; Hayder An MD; Brandon Kilgore MD; Chery Marte JUNIOR HIGH MATH TEACHER ? EXAMINATION: ?? US SCREENING ULTRASOUND BREAST, [...] DD/ 1100 ? TD/TT: 07/25/24 1131 ? Assistant Cook: ? Procedure Note Donotuseinterpreter, Image - 07/25/2024 [facility] [address] [place] [address] Ultrasound Report Signed Patient: Genesis Wagner NMR#: [id number] : 1970Acct:[id number] Age/Sex: 54 / FADM Date: 07/25/24 Loc: HO.MAMMO Attending Dr: Hayder An MD Ordering Physician: Hayder An MD Date of Service: 07/25/24 Procedure(s): US breast BI complete Accession Number(s): [id number] cc: Michelle Joyce CNM; Hayder An MD; Brandon Kilgore MD; Sarah Marte JUNIOR HIGH MATH TEACHER EXAMINATION: US SCREENING ULTRASOUND BREAST, BILATERAL CLINICAL [...] Edmond Phipps MD 07/25/2024 12:32 PM EST RP Dictated By: Edmond Phipps MD Signed By: <Electronically signed by Edmond Phipps MD in OV> 07/25/24 1232 DD/ 1100 TD/TT: 07/25/24 1131 Assistant Cook: us [facility] External Provider IMG US PROCEDURES Final Result * Pap Smear (01/25/2024 3:45 PM EDT) 01/25/2024 3:45 PM EDT 01/27/2024 7:00 AM EDT [facility]S - 02/11/2024 5:47 PM EDT ----- ------- Name: Genesis Wagner ?Age/Sex: 53/F ? : 1970 Unit#: [id number] ?? Attend Dr: Michelle Joyce CNM ?Re01/25/24 ?Status: DEP REF ? Location: HO.LNP ?Disch: ? ----- ------- SPEC : [id number] ? RECD: 01/27/24 ? STATUS: ??SOUT ? REQ NUM: [id number] ? BRUNO: 01/25/24 ? SUBM DR: Michelle [...] 66, 68) ? HPV testing performed by [facility], [place], [place]. ??See reference laboratory ?? portion of the EMR for entire report. ?Clinical Information LMP: 04/2023 Previous PAP test: 2019, WNL ? Material Received ?? ThinPrep-Cervical Copies To: ?? Michelle Joyce CNM ?? [address] [facility] [address] [place] [facility] ?? [place] [address] ?? [phone] ?? Name,Brandon FUNEZ ?? [address] [facility] ?? [place] [address] ?? [phone] ----- ------- Signed (signature on file) Sharon Rae Farmer 02/11/241746 ? ----- ------- ? END OF REPORT ? us Generic External Data Provider LAB CYTOLOGY MARGIE WHITFIELD Final Result [facility] [address] [facility] [place] [address] [phone] * Hepatitis C Ab (07/22/2023 8:46 AM EDT) Pathologist [facility] Hepatitis C Antibody Nonreactive Nonreactive [facility] Comment:Antibodies to HCV no t detected; does not exclude early acuteHCV infection. Blood Venous blood specimen / Unknown 07/22/2023 8:46 AM EDT 07/22/2023 11:13 AM EDT Brandon Kilgore MD LAB BLOOD ORDERABLES Final Resul t Performing Organization Address City[facility] Co co Phone Number [facility] [address] [place] [address] [phone] * Hm Colonoscopy (05/09/2020) Colonoscopy Normal Normal Kumar Collins MD HEALTH MAINTENANCE Final Result * HPV mRNA E6/E7 (06/21/2019 9:30 AM EDT) HPV mRNA E6/E7 Not Detected NOT DETECTED [facility] Comment: This test was performed using the APTIMA(R) HPV Assay ([employer] This assay detects E6/E7 viral messenger RNA (mRNA) from 14 high-risk HPV types (16,18,31,33,35,39,45,51, 52,56,58,59,66,68). For additional information please refer to: http://education.Docker/faq/YLG740w0 (This link is being provided for informational/ educational purposes only.) The analytical performance characteristics of this assay have been determined by [employer] [place], [place]. The modifications have not been cleared or approved by the FDA. This assay has been validated pursuant to the CLIA regulations and is used for clinical purposes. Test Performed by [facility], [facility], [address] [place] [address] Tai Gupta M.D., Ph.D., Director of Laboratories , CLIA [id number] Please note: ??Effective 05/31/2016, HPV testing will be performed using [employer]'s APTIMA test which targets mRNA. Detecting mRNA instead of DNA, as in older methods, offers significant improvements in specificity. 06/21/2019 9:30 AM EDT Sharri Stout CNM HISTORICAL/NON ORDERABLE LABS Final Result [facility] [address] from Last 3 Months or Most Recently Relevant to Health Maintenance Insurance HMO Care Teams Tool Machine Shop Supervisor Relationship Specialty Start Date End Date Name, MD Brandon [address] [place] [phone] PCP - General Family Medicine 09/19/18
== END 2025-01-30 10:55 | disposition home or self-care (01) ==
LOC: HO.HWS 10:00
PROVIDERS: PCP Internal Medicine Geriatric Medicine; Visit Provider Advanced Practice Midwife
DX: Z01.419 Encounter for gynecological examination (general) (routine) without abnormal findings (principal); D25.9 Leiomyoma of uterus, unspecified
CPT/HCPCS: 99396; 99459

== ENCOUNTER → 2025-02-06 13:04 | Outpatient (BNVA) | payer BC, SELFPAY | PROVIDERS: PCP Internal Medicine Geriatric Medicine; Visit Provider Advanced Practice Midwife | DX: Z13.89 Encounter for screening for other disorder (principal) ==

== ENCOUNTER 2025-03-04 16:27 | Outpatient (REF) | payer BC, SELFPAY ==
--- NOTE | ~2025-03-04 | US_ITS ---
EXAMINATION: US PELVIS CLINICAL INFORMATION: Uterine leiomyoma, follow-up COMPARISON: May 01, 2024 TECHNIQUE: Ultrasound of the pelvis is performed using both transabdominal and transvaginal transducers along with Doppler. Transvaginal imaging is performed due to inadequate visualization transabdominally. FINDINGS: Uterus: The uterus is heterogeneous and measures 9.4 x 5.3 x 6.6 cm cm. The double wall endometrial thickness is 3 mm. Uterus appears heterogeneous with multiple uterine leiomyoma The largest is in the right lower uterine body measuring 2.1 cm, unchanged. Adnexa: Both ovaries are visualized. There is normal color flow to the adnexa. There is no ovarian torsion. There is no pelvic ascites or fluid collection. Right ovary measures 2.0 x 1.1 x 1.5 cm. Left ovary measures 5.7 x 4.3 x 4.3 cm. There is a mostly anechoic mass a single thin internal septation 3.4 x 5.3 cm previously 3.8 x 5.4 centimeter versus 2 adjacent simple cysts. US/US pelvic and transvaginal IMPRESSION: Fibroid uterus, stable. Left ovarian Cyst with indeterminate characteristics: Findings suggestive of but not classic for cyst, endometrioma, or dermoid. Thin walled cyst with single thin septation or focal wall calcification. It is unchanged since the prior exam 10 months ago. MRI should be considered. If MRI does not confirm endometrioma or dermoid, surgical consultation should be considered. Electronically signed by: Vinicio Maravilla MD 03/04/2025 05:59 PM EDT
--- OUTSIDE RECORDS SUMMARY | 2025-03-04 17:57 | XMS_ITS | Encounter Summary ---
Author Organization [employer] Address [address] [facility] [address] [place] [address] Care Team Providers Care Orthopedic Physician Assistant Name Role Phone Name, Brandon FUNEZ Primary Care Provider Encounter Details Date Type Department Care Team ([facility] st Contact Info) Description 03/08/2023 Abstract [facility] MED & PEDS [address] [place], [place] [phone] Name, MD Brandon [address] [place] [address] [phone] Social History Tobacco Use Types Packs/Day Years [...] on filedocumented in this encounter Care Teams Orthopedic Physician Assistant Relationship Specialty Start Date End Date Name, MD Brandon [address] [place] [address] [phone] PCP - General Family Medicine 09/19/18 documented as of this encounter
== END 2025-03-04 16:28 | disposition home or self-care (01) ==
LOC: HO.US 16:27
PROVIDERS: PCP Internal Medicine Geriatric Medicine; Visit Provider Advanced Practice Midwife
DX: D21.9 Benign neoplasm of connective and other soft tissue, unspecified (principal)
CPT/HCPCS: 76830; 76856

== ENCOUNTER → 2025-03-04 16:28 | Outpatient (BNV) | payer BC, SELFPAY | PROVIDERS: PCP Internal Medicine Geriatric Medicine; Visit Provider Radiology Diagnostic Radiology | DX: N83.202 Unspecified ovarian cyst, left side (principal) | CPT/HCPCS: 76830; 76856 ==

== ENCOUNTER 2025-03-05 10:58 | Outpatient (AMB) | payer BC, SELFPAY ==
--- NOTE | 2025-03-05 10:59 | A.OFFVIS_ITS ---
Intake Visit Reasons: u/s follow up Intake Note: cell # [phone] Call Or Contact Centre Team Leader: Call Or Contact Centre Team Leader Present Allergies penicillin G Allergy (Unknown, Verified 01/30/25 10:02) hives Is last menstrual period known: Yes HPI Comments Details: Tele Health Visit Total time I personally spent on visit and management today: 41 minutes. Time spent included review of pertinent office notes in the electronic health record; review of laboratory and imaging results; review of personal family medical history; discussing diagnosis and plan of care with the patient; documenting the encounter in the EMR. Patient presents to discuss: Ultrasound findings, history of irregular spaced bleeding pattern, has not gone 1 full year without a menses. History of left simple ovarian cyst, fibroids. Plans to be out of the country from 03/10/25-03/22/25. 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 Sexual orientation: Straight/Heterosexual Gender identity: Female Female Reproductive History Menstrual Age of Menarche: 12 Review of Systems Const All systems reviewed & are unremarkable except as noted in HPI and below Endo Reports no additional complaints Physical Exam Const General: cooperative, healthy appearing and no acute distress Psych Appearance: well kempt Attitude: cooperative Thought process: Normal thought process present Telehealth Telehealth Telehealth Platform: Kleo Location of provider rendering services: practice address Location of patient: address on file Patient Identification confirmed using: Name, : Yes Telehealth method: video Patient verbally consented to treatment: Yes Patient verbally consented to billing insurance company: Yes Patient informed of any privacy concerns related to visit: Yes Results Reviewed Results Reviewed: [address] [address] Ultrasound Report Signed Patient: Genesis Wagner MR#: [id number] : 1970 Acct:[id number] Age/Sex: 54 / F ADM Date: 03/04/25 Loc: HO.US Attending Dr: Michelle Joyce CNM Ordering Physician: Michelle Joyce CNM Date of Service: 03/04/25 Procedure(s): US pelvic and transvaginal Accession Number(s): [id number] cc: Michelle Joyce CNM; Name,Brandon FUNEZ~ EXAMINATION: US PELVIS CLINICAL INFORMATION: Uterine leiomyoma, follow-up COMPARISON: May 01, 2024 TECHNIQUE: Ultrasound of the pelvis is performed using both transabdominal and transvaginal transducers along with Doppler. Transvaginal imaging is performed due to inadequate visualization transabdominally. FINDINGS: Uterus: The uterus is heterogeneous and measures 9.4 x 5.3 x 6.6 cm cm. The double wall endometrial thickness is 3 mm. Uterus appears heterogeneous with multiple uterine leiomyoma The largest is in the right lower uterine body measuring 2.1 cm, unchanged. Adnexa: Both ovaries are visualized. There is normal color flow to the adnexa. There is no ovarian torsion. There is no pelvic ascites or fluid collection. Right ovary measures 2.0 x 1.1 x 1.5 cm. Left ovary measures 5.7 x 4.3 x 4.3 cm. There is a mostly anechoic mass a single thin internal septation 3.4 x 5.3 cm previously 3.8 x 5.4 centimeter versus 2 adjacent simple cysts. US/US pelvic and transvaginal IMPRESSION: Fibroid uterus, stable. Left ovarian Cyst with indeterminate characteristics: Findings suggestive of but not classic for cyst, endometrioma, or dermoid. Thin walled cyst with single thin septation or focal wall calcification. It is unchanged since the prior exam 10 months ago. MRI should be considered. If MRI does not confirm endometrioma or dermoid, surgical consultation should be considered. Electronically signed by: Vinicio Maravilla MD 03/04/2025 05:59 PM EDT Dictated By: Vinicio Maravilla MD Signed By: <Electronically signed by Vinicio Maravilla MD in OV> 03/04/25 1759 DD/ 1643 TD/TT: 03/04/25 1702 Lead Database Developer: Assessment & Plan Assessment & Plan (1) Ovarian mass: Comment: 5.7 cm left-MRI Code(s): N83.8 - Other noninflammatory disorders of ovary, fallopian tube and broad ligament Category: Medical Plan Discussed: Ultrasound findings- IMPRESSION: Fibroid uterus, stable. Left ovarian Cyst with indeterminate characteristics: Findings suggestive of but not classic for cyst, endometrioma, or dermoid. Thin walled cyst with single thin septation or focal wall calcification. It is unchanged since the prior exam 10 months ago. MRI should be considered. If MRI does not confirm endometrioma or dermoid, surgical consultation should be considered. Electronically signed by: Vinicio Maravilla MD 03/04/2025 05:59 PM EDT RP Further evaluation recommended to rule out any pre or cancerous ovarian lesions. MRI ordered, blood work- tumor markers ordered, surgical referral consult Gyne Onc if indicated, await MRI results. The patient expressed understanding and agreement with the plan of care. All of her questions and concerns were addressed to the best of my ability. Patient informed me she is not going to be in the country between March 10 through March 22 2025. This note is constructed using voice recognition software. While every effort has been made to ensure accuracy, electroneurodiagnostic technician errors may have been included. Orders: Orders Carbohydrate Antigen 19-9 Today N83.8 - Other noninflammatory disorders of ovary, fallopian tube and broad ligament Carcinoembryonic Antigen Today N83.8 - Other noninflammatory disorders of ovary, fallopian tube and broad ligament MR pelvis wo/w con Today N83.8 - Other noninflammatory disorders of ovary, fallopian tube and broad ligament CA-125 Today N83.299 - Other ovarian cyst, unspecified side Coding Level of Care Code Tele New Pt Level 3 (08887) Diagnoses Ovarian mass N83.8
--- OUTSIDE RECORDS SUMMARY | 2025-03-05 12:29 | XMS_ITS | Encounter Summary ---
Author Organization [employer] Address [address] [facility] [address] [place] [address] Care Team Providers Care Corporate Associate Attorney Name Role Phone Name, Brandon FUNEZ Primary Care Provider [phone] Encounter Details Date Type Department Care Team ([facility] st Contact Info) Description 03/08/2023 Abstract [facility] MED & PEDS [address] [place], [place] [id number] Name, MD Brandon [address] [place] [address] [phone] Social History Tobacco Use Types Packs/Day Years [...] on filedocumented in this encounter Care Teams Corporate Associate Attorney Relationship Specialty Start Date End Date Name, MD Brandon [address] [place] [address] [phone] PCP - General Family Medicine 09/19/18 documented as of this encounter
== END 2025-03-05 15:12 | disposition home or self-care (01) ==
LOC: HO.HWS 10:58
PROVIDERS: PCP Internal Medicine Geriatric Medicine; Visit Provider Advanced Practice Midwife
DX: N83.8 Other noninflammatory disorders of ovary, fallopian tube and broad ligament (principal)
CPT/HCPCS: 99214

== ENCOUNTER → 2025-03-05 10:58 | Outpatient (BNVA) | payer BC, SELFPAY | PROVIDERS: PCP Internal Medicine Geriatric Medicine; Visit Provider Advanced Practice Midwife ==

== ENCOUNTER 2025-03-06 08:22 | Outpatient (REF) | payer BC, SELFPAY ==
--- OUTSIDE RECORDS SUMMARY | 2025-03-06 08:41 | XMS_ITS | Encounter Summary ---
Author Organization Team [employer] Address [address] [facility] [address] [place] [address] Care Team Providers Care Lottery Manager Name Role Phone Name, Brandon FUNEZ Primary Care Provider [phone] Encounter Details Date Type Department Care Team ([facility] st Contact Info) Description 03/08/2023 Abstract [facility] MED & PEDS [address] [place], [place] [id number] Name, MD Brandon [address] [place] [address] [phone] Social History Tobacco Use Types Packs/Day Years [...] on filedocumented in this encounter Care Teams Lottery Manager Relationship Specialty Start Date End Date Name, MD Brandon [address] [place] [address] [phone] PCP - General Family Medicine 09/19/18 documented as of this encounter
[2025-03-06 11:02] LABS: Carcinoembryonic Antigen < 1.73 ng/mL
[2025-03-08 10:29] LABS: CA-125 5 U/mL (<35); Carbohydrate Antigen 19-9 10 U/mL (<34)
== END 2025-03-06 08:23 | disposition home or self-care (01) ==
LOC: HO.LAB 08:22
PROVIDERS: PCP Internal Medicine Geriatric Medicine; Visit Provider Advanced Practice Midwife
DX: N83.299 Other ovarian cyst, unspecified side (principal); N83.8 Other noninflammatory disorders of ovary, fallopian tube and broad ligament
CPT/HCPCS: 36415; 82378; 86301; 86304

== ENCOUNTER → 2025-03-25 10:10 | Outpatient (BNV) | payer BC, SELFPAY | PROVIDERS: PCP Internal Medicine Geriatric Medicine; Visit Provider Radiology Diagnostic Radiology | DX: D25.9 Leiomyoma of uterus, unspecified (principal); N83.292 Other ovarian cyst, left side | CPT/HCPCS: 72197 ==

== ENCOUNTER 2025-03-25 10:11 | Outpatient (REF) | payer BC, SELFPAY ==
--- NOTE | ~2025-03-25 | MR_ITS ---
EXAMINATION: MR PELVIS WITHOUT THEN WITH IV CONTRAST HISTORY: N83.8 - Other noninflammatory disorders of ovary, fallopian tube and bro.... TECHNIQUE: Axial T1, fat-suppressed T1, fat-suppressed T2, and sagittal and coronal T2-weighted MR images of the pelvis were obtained. Subsequently, axial and sagittal fat-suppressed T1-weighted images were obtained after the intravenous administration of 8.5 mm Gadavist. COMPARISON: Correlation is made with a pelvic ultrasound dated 03/04/2025. FINDINGS: The uterus measures approximately 8.3 x 4.9 x 5.8 cm. Multiple fibroids are identified including of 2.4 cm intramural fibroid, anterior fibroids measuring up to 1.9 cm, and posterior fibroids measuring up to 1.7 cm. Multiple additional fibroids are noted which distort the endometrial canal. No definite thickening of the junctional zone. The cervix is unremarkable. The right ovary measures approximately 1.8 x 1.1 x 1.6 cm and demonstrates multiple small follicles. There is a septated cyst in the left adnexa measuring approximately 5.2 x 5.2 x 4.1 cm. There is enhancement of the wall which is smooth without associated nodular components. There is minimal enhancement of the septa. There is a small amount of free fluid in the cul-de-sac. There is no pelvic lymphadenopathy. Incidental note is made of a 3.5 cm right renal cyst. MR/MR pelvis wo/w con IMPRESSION: 1. Fibroid uterus as described. 2. 5.2 x 5.2 x 4.1 cm septated left adnexal cyst. As the lesion has not resolved since 05/01/2024, surgical consultation is suggested. Electronically signed by: Kumar Lancaster MD 03/25/2025 11:27 AM EDT
--- OUTSIDE RECORDS SUMMARY | 2025-03-25 10:58 | XMS_ITS | Patient Health Record ---
Author Organization [facility] Address [address] [place] [address] Care Team Providers Care Repair Electric Motor Assembler Name Role Phone Name Brandon FUNEZ Primary Care Provider Kumar Ferguson [phone] Allergies Allergen (clinical drug ingredient) Drug/Non Drug Allergy documented on EMR Reaction Allergy Type Onset Date Status penicillin G Penicillin G Sodium Unknown Drug Allergy Active ampicillin Ampicillin Unknown Drug Allergy Activ e all the PCN family (uncoded) Unknown Allergy Active Reason For Referral No Information Immunizations Vaccine Route Administration Date Status Comme nts Influenza Unknown 07/13/2018 Administered Social History Tobacco Use: Social History Observation Description Date Details (start date - stop date) Former Smoker NA - NA Tobacco Use/Smoking Question Answer Notes Patient is a former smoker How long has it been since you last smoked? 1-5 years Alcohol Screen Question Answer Notes Did you have a drink contain ing alcohol in the past year? Yes How often did you have a dri nk containing alcohol in the past year? 2 to 4 times a month (2 points) How many drinks did you have on a typical day when you were drinking in the past year? 1 or 2 drinks (0 point) How often did you have 6 or more drinks on one occasion in the past year? Never (0 point) Points 2 Interpretation Negative Section Notes: [place] in 199 4 Problems Problem Type SNOMED Code ICD Code Onset Dates Problem Status W/U Status Risk Notes Problem [id number] Encounter for screening for malignant neoplasm of colon (Z12.11) Active confirmed Problem [id number] Preprocedural examination (Z01.818) Active confirmed Plan Of Treatment Future Test Test Name Order Date COLONOSCOPY 06/06/2019 Insurance Providers Payer Name Payer Address Payer Phone Subscriber Number Group Number Insured Name Patient Relationship to Insured Coverage Start Date Coverage End Date [facility] PROFESSIONAL CLAIMS [address] [place] [address] [id number] YOUSIF KRAUSE Self - patient is the insured Medical (General) History Medical History History ICD Code Denies [place],DM,CVA,Lung disease,renal dise ase [place] [facility] [place] Surgical History Surgery Date(Month/Year)
--- OUTSIDE RECORDS SUMMARY | 2025-03-25 10:58 | XMS_ITS | Encounter Summary ---
Author Organization [employer] Address [address] [facility] [address] [place] [address] Care Team Providers Care Java Android Developer Name Role Phone Name, Brandon FUNEZ Primary Care Provider [phone] Encounter Details Date Type Department Care Team ([facility] st Contact Info) Description 03/08/2023 Abstract [facility] MED & PEDS [address] [place], [place] [id number] Name, MD Brandon [address] [place] [address] [phone] Social History Tobacco Use Types Packs/Day Years [...] on filedocumented in this encounter Care Teams Java Android Developer Relationship Specialty Start Date End Date Name, MD Brandon [address] [place] [address] [phone] PCP - General Family Medicine 09/19/18 documented as of this encounter
== END 2025-03-25 10:12 | disposition home or self-care (01) ==
LOC: HO.MRI 10:11
PROVIDERS: PCP Internal Medicine Geriatric Medicine; Visit Provider Advanced Practice Midwife
DX: N83.8 Other noninflammatory disorders of ovary, fallopian tube and broad ligament (principal)
CPT/HCPCS: 72197; A9585

== ENCOUNTER 2025-04-02 15:05 | Outpatient (AMB) | payer BC, SELFPAY ==
--- NOTE | 2025-04-02 15:08 | MHC.OFFVIS ---
Intake Visit Reasons: MRi follow up Airplane Cover Maker: Airplane Cover Maker Present (Miguelina) Accompanied by: Self / Same As Patient Allergies penicillin G Allergy (Unknown, Verified 04/02/25 15:13) hives Is last menstrual period known: Yes HPI Comments Details: Patient is here today for a follow up MRI results. History of ovarian cyst. She denies any pelvic pain, bloating, pressure or vaginal bleeding. 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 Sexual orientation: Straight/Heterosexual Gender identity: Female Female Reproductive History Menstrual Age of Menarche: 12 Date of last pap smear: 01/25/24 (negative pap smear, negative hpv) Date of Mammogram: 05/31/24 (bi rad 1) Review of Systems Const All systems reviewed & are unremarkable except as noted in HPI and below Endo Reports no additional complaints Physical Exam Const General: cooperative, healthy appearing and no acute distress Psych Appearance: well kempt Attitude: cooperative Thought process: Normal thought process present Results Reviewed Results Reviewed: [address] [address] Magnetic Resonance Report Signed Patient: Genesis Wagner MR#: [id number] : 1970 Acct:[id number] Age/Sex: 54 / F ADM Date: 03/25/25 Loc: HO.MRI Attending Dr: Michelle Joyce CNM Ordering Physician: Michelle Joyce CNM Date of Service: 03/25/25 Procedure(s): MR pelvis wo/w con Accession Number(s): [id number] cc: Michelle Joyce CNM; Name,Brandon FUNEZ~ EXAMINATION: MR PELVIS WITHOUT THEN WITH IV CONTRAST HISTORY: N83.8 - Other noninflammatory disorders of ovary, fallopian tube and bro.... TECHNIQUE: Axial T1, fat-suppressed T1, fat-suppressed T2, and sagittal and coronal T2-weighted MR images of the pelvis were obtained. Subsequently, axial and sagittal fat-suppressed T1-weighted images were obtained after the intravenous administration of 8.5 mm Gadavist. COMPARISON: Correlation is made with a pelvic ultrasound dated 03/04/2025. FINDINGS: The uterus measures approximately 8.3 x 4.9 x 5.8 cm. Multiple fibroids are identified including of 2.4 cm intramural fibroid, anterior fibroids measuring up to 1.9 cm, and posterior fibroids measuring up to 1.7 cm. Multiple additional fibroids are noted which distort the endometrial canal. No definite thickening of the junctional zone. The cervix is unremarkable. The right ovary measures approximately 1.8 x 1.1 x 1.6 cm and demonstrates multiple small follicles. There is a septated cyst in the left adnexa measuring approximately 5.2 x 5.2 x 4.1 cm. There is enhancement of the wall which is smooth without associated nodular components. There is minimal enhancement of the septa. There is a small amount of free fluid in the cul-de-sac. There is no pelvic lymphadenopathy. Incidental note is made of a 3.5 cm right renal cyst. MR/MR pelvis wo/w con IMPRESSION: 1. Fibroid uterus as described. 2. 5.2 x 5.2 x 4.1 cm septated left adnexal cyst. As the lesion has not resolved since 05/01/2024, surgical consultation is suggested. Electronically signed by: Kumar Lancaster MD 03/25/2025 11:27 AM EDT Dictated By: Kumar Lancaster MD Signed By: <Electronically signed by Kumar Lancaster MD in OV> 03/25/25 1127 DD/ 1000 TD/TT: 03/25/25 1100 Early Childhood Education Instructor: Assessment & Plan Assessment & Plan (1) Complex ovarian cyst: Code(s): N83.299 - Other ovarian cyst, unspecified side Category: Medical Plan Discussed: MRI results complex ovarian cyst is 5.2 cm. Tumor marker labs all negative x3. Recommend she have a surgical consult at [facility] for persistent complex cyst. Advised to report any pelvic pain, bloating, pressure, vaginal bleeding. The patient expressed understanding and agreement with the plan of care. All of her questions and concerns were addressed to the best of my ability. IMPRESSION: 1. Fibroid uterus as described. 2. 5.2 x 5.2 x 4.1 cm septated left adnexal cyst. As the lesion has not resolved since 05/01/2024, surgical consultation is suggested. . Referral placed appointment to be scheduled. Annual exam scheduled January 2026. This note is constructed using voice recognition software. While every effort has been made to ensure accuracy, cabin man errors may have been included. Orders: Referrals Gynecologic Oncology Referral N83.299 - Other ovarian cyst, unspecified side Coding Level of Care Code Est Pt Level 3 (38335) Diagnoses Complex ovarian cyst N83.299
--- OUTSIDE RECORDS SUMMARY | 2025-04-02 16:20 | XMS_ITS | Encounter Summary ---
Author Organization [employer] Address [address] [facility] [address] [place] [address] Care Team Providers Care Hot Billet Shear Operator Name Role Phone Name, Brandon FUNEZ Primary Care Provider [phone] Encounter Details Date Type Department Care Team ([facility] st Contact Info) Description 03/08/2023 Abstract [facility] MED & PEDS [address] [place], [place] [phone] Name, MD Brandon [address] [place] [address] [phone] Social History Tobacco Use Types Packs/Day Years [...] on filedocumented in this encounter Care Teams Hot Billet Shear Operator Relationship Specialty Start Date End Date Name, MD Brandon [address] [place] [address] [phone] PCP - General Family Medicine 09/19/18 documented as of this encounter
--- OUTSIDE RECORDS SUMMARY | 2025-04-02 16:21 | XMS_ITS | Patient Health Record ---
Author Organization [facility] Address [address] [place] [address] Care Team Providers Care Supervisor Tower Name Role Phone Name Brandon FUNEZ Primary Care Provider Kumar Ferguson [phone] Allergies Allergen (clinical drug ingredient) Drug/Non Drug [...] Problem Status W/U Status Risk Notes Problem [id number] Encounter for screening for malignant neoplasm of colon (Z12.11) Active confirmed Problem [id number] Preprocedural examination (Z01.818) Active confirmed Plan Of Treatment Future Test Test Name Order Date COLONOSCOPY 06/06/2019 Insurance Providers Payer Name Payer Address Payer Phone Subscriber Number Group Number Insured Name Patient Relationship to Insured Coverage Start Date Coverage End Date [facility] PROFESSIONAL CLAIMS [address] [place] [address] [id number] YOUSIF KRAUSE Self - patient is the insured Medical (General) History Medical History History ICD Code Denies [place],DM,CVA,Lung disease,renal dise ase 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
== END 2025-04-02 15:56 | disposition home or self-care (01) ==
LOC: HO.HWS 15:05
PROVIDERS: PCP Internal Medicine Geriatric Medicine; Visit Provider Advanced Practice Midwife
DX: N83.299 Other ovarian cyst, unspecified side (principal)
CPT/HCPCS: 99213

== ENCOUNTER 2025-06-06 08:03 | Outpatient (REF) | payer BC, SELFPAY ==
--- NOTE | ~2025-06-06 | MM_ITS ---
EXAMINATION: MM SCREENING DIGITAL BREAST TOMOSYNTHESIS, BILATERAL CLINICAL INFORMATION: Screening. Asymptomatic. COMPARISON: Mammography: Comparison is made with available priors TECHNIQUE: Digital breast mammography with tomosynthesis is performed in both the craniocaudal and mediolateral oblique views along with computer-aided detection (CAD). FINDINGS: The breasts are heterogeneously dense, which may obscure small masses (ACR BI-RADS breast composition Category c). There are no significant masses, abnormal calcifications, or other abnormalities. MM/MM tomosynthesis screening BI IMPRESSION: No mammographic evidence of malignancy. ASSESSMENT: BI-RADS BI-RADS 1 - Negative RECOMMENDATION: Routine annual mammography screening. 1 year F/U This examination should not preclude the clinical evaluation of a suspicious palpable abnormality. This patient's information was entered into a reminder system with a target due date for their next mammogram. Electronically signed by: Yuni Sethi DO 06/10/2025 02:13 PM EDT
--- OUTSIDE RECORDS SUMMARY | 2025-06-06 08:11 | XMS_ITS | Clinical Summary ---
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 Not on abhilash e 01/14/2023 Are you concerned about learning? Not on file 01/14/2023 No 01/14/2023 No 01/14/2023 Digital Access Answer Date Recorded No 02/14/2023 No 02/14/2023 No 02/14/2023 Reliable internet access at home? Not on file 02/14/2023 Device with a working camera? Not on file Intimate Partner Violence Answer Date R ecorded Are you denied basic needs s uch as food, clothing, or medical care? No 03/02/2023 In the past 12 months have y ou been in a relationship with a person who hurts, threatens, or tries to control you? No 03/02/2023 Are you denied basic needs s uch as food, clothing, or medical care? No 03/02/2023 In the past 12 months have y ou been in a relationship with a person who hurts, threatens, or tries to control you? No 03/02/2023 Comments Unknown Sex and Gender Information Value Date Recorded Sex Assigned at Not on file Legal Sex Female 3:15 PM EST Gender Identity Not on file Sexual Orientation Not on file Last Filed Vital Signs Vital Sign Reading Time Taken Comments Blood Pressure 112/56 03/03/2023 9:03 AM EDT Pulse 81 03/03/2023 9:03 AM EDT Temperature 36.3 C (97.3 F) 03/03/2023 9:03 AM EDT Respiratory Rate 16 03/03/2023 9:03 AM EDT Oxygen Saturation 96% 03/03/2023 9:03 AM EDT Inhaled Oxygen Concentration - - Weight 86.2 kg (190 lb) 08/16/2023 11:28 AM EST Height 167.6 cm (5' 6 ) 08/16/2023 11:28 AM EST Body Mass Index 30.67 08/16/2023 11:28 AM EST Plan of Treatment Health Maintenance Due Date Last Done Comments DEPRESSION SCREENING 1982 SMOKING Hx and SMOKELESS TOBACCO SCREENING 1983 HEPATITIS C SCREENING 1988 HIV ONE-TIME SCREENING (18-65 YEARS) 1988 PAP SMEAR 1991 COLOGUARD 2015 COLONOSCOPY 2015 COLORECTAL CANCER SCREENING 2015 FIT TEST 2015 FOBT 2015 SIGMOIDOSCOPY 2015 VIRTUAL COLONOSCOPY 2015 PNEUMOCOCCAL VACCINES (50+ years) (1 of 1 - PCV) 2020 ZOSTER VACCINES (1 of 2) 2020 COVID-19 VACCINE (3 - season) 2024 12/10/2020, 11/19/2020 INFLUENZA VACCINE (#1) 2025 0, 06/21/2019, 06/26/2018, Additional history exists MAMMOGRAM 05/26/2025 05/26/2023 SCREENING FOR DIABETES 03/03/2026 03/03/2023, 2014 Adult Td,Tdap Booster 08/24/2026 08/24/2016, 011 LIPID PANEL 07/22/2028 07/22/2023 HEPATITIS A VACCINES Aged Out No long er eligible based on patient's age to complete this topic HIB VACCINES Aged Out No longer eligi ble based on patient's age to complete this topic MENINGOCOCCAL VACCINES (ACWY) Aged Out No longer eligible based on patient's age to complete this topic MENINGOCOCCAL VACCINES (B) Aged Out N o longer eligible based on patient's age to complete this topic Medical Devices Implanted Type Area Dictaphone Typist Device Identifier Shelf Expiration Date Model / Serial / Lot Device Closure 5fr Arterial Celt Bx/5ea - [id number] Implanted:Qty: 1 on 03/02/2023 by Johnna Brush MD at [facility] Right: Groin [employer] [facility]/04/2026 [facility] / [id number] Procedures Procedure Name Priority Date/Time Associated Diagnosis Comments GLUCOSE Routine 11/12/2014 3:46 AM EST from Last 3 Months or Most Recently Relevant to Health Maintenance Results * Glucose (11/12/2014 3:46 AM EST) Plasma Glucose 101 70 - 110 mg/dL [facility] 11/12/2014 3:46 AM EST 11/12/2014 3:48 AM EST Comment:BLOOD us Casey Patel MD LAB BLOOD ORDERABLES Edited Re sult - Final [facility] [address] [place] [address] from Last 3 Months or Most Recently Relevant to Health Maintenance Insurance Advance Directives For more information, please contact: [phone] (9AM - 5PM [place], Tuesday-Tuesday) * Full Code (Latest Code Status on File) Date Activated Date Inactivated Comments 03/03/2023 12:37 AM Question Answer Comments Code Status Confirmed With: Patient * Full Code (Presumed) Date Activated Date Inactivated Comments 09/04/2019 11:52 AM 09/05/2019 6:03 AM Care Teams Fisher Hand Line Relationship Specialty Start Date End Date Name, MD Brandon [address] [place] [address] PCP - General Internal Medicine 08/23/14 Additional Source Comments The information contained in this document represents components of the legal health record. It is not the complete legal health record.[facility]
--- OUTSIDE RECORDS SUMMARY | 2025-06-06 08:11 | XMS_ITS | Encounter Summary ---
Author Organization [facility] Address [facility]ly [facility] [employer] [facility] [address] [place] [address] Phone Care Team Providers Care Director Of Design Name Role Phone Name, Brandon FUNEZ Primary Care Provider [phone] Eugenia Lopez COPYIST Unavailable [phone] Bertha Meléndez MD Unavailable Radha Desouza COPYIST Unavailable [phone] Abdirahman De La O MD Unavailable [phone] Rashida Concepcion RDCS Unavailable [email or web address] Name, Brandon FUNEZ Unavailable She Winkler MD Unavailable [phone] Gallo Harvey MD Unavailable [phone] Encounter Details Date Type Department Care Team (Late st Contact Info) Description 05/21/2016 Ancillary Orders [facility] [address] [facility], 7th Floor, [address] [place] [address] Pricila Honeycutt MD [facility] [place] [address] Social History Tobacco Use Types Packs/Day Years Used Date Smoking Tobacco: Former Comments Unknown Sex and Gender Information Value Date Recorded Sex Assigned at Not on file Legal Sex Female 3:15 PM EST Gender Identity Not on file Sexual Orientation Not on file documented as of this encounter Plan of Treatment Not on file documented as of this encounter Visit Diagnoses Not on filedocumented in this encounter Care Teams Director Of Design Relationship Specialty Start Date End Date Name, MD Brandon [address] [place] [address] PCP - General Internal Medicine 08/23/14 Eugenia Lopez, COPYIST [address] [place] [address] Historical LMR Provider 07/06/17 2 Bertha Meléndez MD [address] [place] [address] Historical LMR Provider 07/06/17 09/26/21 Radha Desouza NP [address] [place] [address] Historical LMR Provider 07/06/17 2 Abdirahman De La O MD [address] [place] [address] Historical LMR Provider 07/06/17 09/26/21 Rashida Concepcion, [facility] Historical LMR Provider 07/06/17 09/26/21 Name, MD Brandon [address] [place] [address] Historical LMR Provider 07/06/17 2 She Winkler MD [address] [place] [address] [email or web address] Historical LMR Provider 07/06/17 09/26/21 Gallo Harvey MD [address] [place] [address] Historical LMR Provider 07/06/17 2 documented as of this encounter Additional Source Comments The information contained in this document represents components of the legal health record. It is not the complete legal health record.[facility]
--- OUTSIDE RECORDS SUMMARY | 2025-06-06 08:11 | XMS_ITS | Encounter Summary ---
Author Organization [facility] Address [address] [facility] [address] [place] [address] Phone Care Team Providers Care Business Initiatives Manager Name Role Phone Name, Brandon FUNEZ Primary Care Provider [phone] Eugenia Lopez INBOUND TELEMARKETER Unavailable [phone] Bertha Meléndez MD Unavailable Radha Desouza INBOUND TELEMARKETER Unavailable [phone] Abdirahman De La O MD Unavailable [phone] Rashida Concepcion [facility] Unavailable [email or web address] Name, Brandon FUNEZ Unavailable She Winkler MD Unavailable [phone] Gallo Harvey MD Unavailable [phone] Encounter Details Date Type Department Care Team (Late st Contact Info) Description 06/10/[address] [facility] [address] [place] [address] Social History Tobacco Use Types Packs/Day Years [...] on filedocumented in this encounter Care Teams Business Initiatives Manager Relationship Specialty Start Date End Date Name, MD Brandon [address] [place] [address] PCP - General Internal Medicine 08/23/14 Eugenia Lopez NP [address] [place] [address] Historical LMR Provider 07/06/17 2 Bertha Meléndez MD [address] [place] [address] Historical LMR Provider 07/06/17 09/26/21 Radha Desouza NP [address] [place] [address] Historical LMR Provider 07/06/17 2 Abdirahman De La O MD [address] [place] [address] Historical LMR Provider 07/06/17 09/26/21 Rashida Concepcion, RDCS Historical LMR Provider 07/06/17 09/26/21 Brandon Kilgore MD [address] [place] [address] Historical LMR Provider 07/06/17 2 She Winkler MD [address] [place] [address] Historical LMR Provider 07/06/17 09/26/21 Gallo Harvey MD [address] [place] [address] Historical LMR Provider 07/06/17 2 documented as of this encounter Additional Source Comments The information contained in this document represents components of the legal health record. It is not the complete legal health record.[facility]
--- OUTSIDE RECORDS SUMMARY | 2025-06-06 08:11 | XMS_ITS | Encounter Summary ---
Author Organization [facility] Address [facility] [employer] [facility] [address] [place] [address] Phone Care Team Providers Care Healthcare Manager Name Role Phone Name, Brandon FUNEZ Primary Care Provider [phone] Eugenia Lopez DIESEL ENGINE I PIPE FITTER Unavailable [phone] Bertha Meléndez MD Unavailable Radha Desouza DIESEL ENGINE I PIPE FITTER Unavailable [phone] Abdirahman De La O MD Unavailable [phone] Rashida Concepcion RDCS Unavailable [email or web address] Name, Brandon FUNEZ Unavailable She Winkler MD Unavailable [phone] Gallo Harvey MD Unavailable [phone] Encounter Details Date Type Department Care Team (Late st Contact Info) Description 05/21/2016 Ancillary Orders [facility] [address] [facility], 7th Floor, [address] [place] [address] Pricila Honeycutt MD [facility] [employer] [place] [address] Social History Tobacco Use Types Packs/Day Years [...] on filedocumented in this encounter Care Teams Healthcare Manager Relationship Specialty Start Date End Date Name, MD Brandon [address] [place] [address] PCP - General Internal Medicine 08/23/14 Eugenia Lopez, DIESEL ENGINE I PIPE FITTER [address] [place] [address] Historical LMR Provider 07/06/17 2 Bertha Meléndez MD [address] [place] [address] Historical LMR Provider 07/06/17 09/26/21 Radha Desouza NP [address] [place] [address] Historical LMR Provider 07/06/17 2 Abdirahman De La O MD [address] [place] [address] Historical LMR Provider 07/06/17 09/26/21 Rashida Concepcion, [facility] Historical LMR Provider 07/06/17 09/26/21 Name, MD Brandon [address] [place] [address] Historical LMR Provider 07/06/17 2 She Winkler MD [address] [place] [address] [email or web address] Historical LMR Provider 07/06/17 09/26/21 Gallo Harvey MD [address] [place] [address] Historical LMR Provider 07/06/17 2 documented as of this encounter Additional Source Comments The information contained in this document represents components of the legal health record. It is not the complete legal health record.[facility]
--- OUTSIDE RECORDS SUMMARY | 2025-06-06 08:11 | XMS_ITS | Patient Health Record ---
Author Organization [facility] Address [address] [place] [address] Care Team Providers Care Handle Sewer Name Role Phone Name Brandon FUNEZ Primary Care Provider Kumar Ferguson [phone] Allergies Allergen (clinical drug ingredient) Drug/Non Drug [...] Problem Status W/U Status Risk Notes Problem [id number] Encounter for screening for malignant neoplasm of colon (Z12.11) Active confirmed Problem [id number] Preprocedural examination (Z01.818) Active confirmed Plan Of Treatment Future Test Test Name Order Date COLONOSCOPY 06/06/2019 Insurance Providers Payer Name Payer Address Payer Phone Subscriber Number Group Number Insured Name Patient Relationship to Insured Coverage Start Date Coverage End Date [facility] PROFESSIONAL CLAIMS [address] [place] [address] [id number] YOUSIF KRAUSE Self - patient is the insured Medical (General) History Medical History History ICD Code Denies [place],DM,CVA,Lung disease,renal dise ase [place]ol[place] of a [place] renal [place] [facility] [place] Surgical History Surgery Date(Month/Year)
--- OUTSIDE RECORDS SUMMARY | 2025-06-06 08:11 | XMS_ITS | Encounter Summary ---
Author Organization [facility] Address [facility] [email or web address] [facility] [address] [place] [address] Phone Care Team Providers Care Hearing Examiner Name Role Phone Name, Brandon FUNEZ Primary Care Provider [phone] Eugenia Lopez CHIEF PROCUREMENT OFFICER Unavailable [phone] Bertha Meléndez MD Unavailable Radha Desouza CHIEF PROCUREMENT OFFICER Unavailable [phone] Abdirahman De La O MD Unavailable [phone] Rashida Concepcion RDCS Unavailable [email or web address] Name, Brandon FUNEZ Unavailable She Winkler MD Unavailable [phone] Gallo Harvey MD Unavailable [phone] Encounter Details Date Type Department Care Team (Latest Contact Info) Description 06/07/2017 Ancillary Orders [facility] [address] [facility], 7th Floor, [address] [place] [address] Pricila Honeycutt MD [facility] [place] [address] Angiomyolipoma of left kidney Social History Tobacco Use Types Packs/Day Years Used Date Smoking Tobacco: Former Comments Unknown Sex and Gender Information Value Date Recorded Sex Assigned at Not on file Legal Sex Female 3:15 PM EST Gender Identity Not on file Sexual Orientation Not on file documented as of this encounter Plan of Treatment Not on file documented as of this encounter Visit Diagnoses Diagnosis Angiomyolipoma of left kidney documented in this encounter Care Teams Hearing Examiner Relationship Specialty Start Date End Date NameBrandon MD [address] [place] [address] PCP - General Internal Medicine 08/23/14 Eguenia Lopez, CHIEF PROCUREMENT OFFICER [address] [place] [address] Historical LMR Provider 07/06/17 2 Bertha Meléndez MD [address] [place] [address] Historical LMR Provider 07/06/17 09/26/21 Radha Desouza NP [address] [place] [address] Historical LMR Provider 07/06/17 2 Abdirahman De La O MD [address] [place] [address] Historical LMR Provider 07/06/17 09/26/[address] Historical LMR Provider 07/06/17 09/26/21 Magui, MD Brandon [address] [place] [address] Historical LMR Provider 07/06/17 2 She Winkler MD [address] [place] [address] [email or web address] Historical LMR Provider 07/06/17 09/26/21 Gallo Harvey MD [address] [place] [address] Historical LMR Provider 07/06/17 2 documented as of this encounter Additional Source Comments The information contained in this document represents components of the legal health record. It is not the complete legal health record.[facility]
--- OUTSIDE RECORDS SUMMARY | 2025-06-06 08:12 | XMS_ITS | Encounter Summary ---
Author Organization [facility] Address [address] [place] [address] Phone Care Team Providers Care Teacher Of Gifted Students Name Role Phone Name, Brnadon FUNEZ Primary Care Provider [phone] Eugenia Lopez SENIOR ELECTRICAL CONTROLS ENGINEER Unavailable [phone] Bertha Meléndez MD Unavailable Radha Desouza SENIOR ELECTRICAL CONTROLS ENGINEER Unavailable [phone] Abdirahman De La O MD Unavailable [phone] Rashida Concepcion [facility] Unavailable [email or web address] Name, Brandon FUNEZ Unavailable She Winkler MD Unavailable [phone] Gallo Harvey MD Unavailable [phone] Reason for Referral * MRI/CAT Scan - Closed Specialty Diagnoses / Procedures Referred By Contac t Referred To Contact Radiology Diagnoses Renal angiomyolipoma Procedures MRI Abdomen Rachana Montano MBBS Phone: tel: mailto: [address] Phone: tel: Referral ID Status Reason Start Date Expiration Date Visits Re quested Visits Authorized [id number] Closed 09/05/2020 10/05/2020 1 1 Encounter Details Date Type Department Care Team (Latest Contact Info) Description 08/28/2020 Ancillary Orders [facility] [address] [facility], 7th Floor, [address] [place] [address] Rachana Montano MBBS [address] [place] [phone] [email or web address] Renal angiomyolipoma Social History Tobacco Use Types Packs/Day Years Used Date Smoking Tobacco: Former Smokeless Tobacco: Never Alcohol Use Standard Drinks/Week Comments Yes 0 (1 standard drink = 0.6 oz pur e alcohol) social Comments Unknown Sex and Gender Information Value Date Recorded Sex Assigned at Not on file Legal Sex Female 3:15 PM EST Gender Identity Not on file Sexual Orientation Not on file documented as of this encounter Plan of Treatment Not on file documented as of this encounter Results * MRI ABDOMEN (KIDNEYS) WITH AND WITHOUT CONTRAST (09/05/2020 11:19 AM EST) Anatomical Region Laterality Modality Abdomen Magnetic Resonan ce 09/05/2020 11:2 5 AM EST Impressions 09/05/2020 11:40 AM EST Substantial diminishment in volume of fat-containing left renal mass, long presumed angiomyolipoma. No new masses of concern identified. Narrative 09/05/2020 11:40 AM EST HISTORY: Follow-up left renal mass COMPARISON: Several prior, most recent July 10, 2019. TECHNIQUE: Exam performed on a 1.5 Maribeth high-field MRI scanner. Axial T1 in and out of phase, T1 with fat suppression and T2 with fat suppression, coronal T1 with fat suppression and T2, followed by post-gadolinium multi-phase axial T1 series with fat suppression and coronal T1 with fat suppression sequences were obtained. FINDINGS: The mixed fatty and soft tissue mass arising from the anterior upper left kidney is measured obliquely on coronal sequence at 8.4 x 5.5 cm compared to 9.7 x 7.5 cm by my measurements previously. AP measurement is 6.0 cm compared to approximately 10 cm previously. Soft tissue enhancing components are again noted particularly towards the upper and posterior margin. Renal cysts noted bilaterally, with the largest cyst in the interpolar right kidney measured at 3.8 cm. No hydronephrosis. Multiple small hepatic cysts noted. Not all of the liver is included on postcontrast imaging. No worrisome masses seen. Spleen unremarkable. No pancreatic finding of concern. No adrenal masses are seen. No evidence of bowel obstruction. No adenopathy is identified. No abdominal aortic aneurysm or worrisome vascular finding is appreciated. No effusions in the visualized lung bases. No worrisome marrow signal change is identified. No ascites or fluid collections. Procedure Note Ephraim Melvin MD - 09/05/2020 HISTORY: Follow-up left renal mass COMPARISON: Several prior, most recent July 10, 2019. TECHNIQUE: Exam performed on a 1.5 Maribeth high-field MRI scanner. Axial T1in and out of phase, T1 with fat suppression and T2 with fat suppression,coronal T1 with fat suppression and T2, followed by jnbi-zvqdgtxwkltvycc-fanmi axial T1 series with fat suppression and coronal T1 with fatsuppression sequences were obtained. FINDINGS: The mixed fatty and soft tissue mass arising from the anterior upper leftkidney is measured obliquely on coronal sequence at 8.4 x 5.5 cm comparedto 9.7 x 7.5 cm by my measurements previously. AP measurement is 6.0 cmcompared to approximately 10 cm previously. Soft tissue enhancingcomponents are again noted particularly towards the upper and posteriormargin. Renal cysts noted bilaterally, with the largest cyst in theinterpolar right kidney measured at 3.8 cm. No hydronephrosis. Multiple small hepatic cysts noted. Not all of the liver is included onpostcontrast imaging. No worrisome masses seen. Spleen unremarkable. Nopancreatic finding of concern. No adrenal masses are seen. No evidence of bowel obstruction. Noadenopathy is identified. No abdominal aortic aneurysm or worrisomevascular finding is appreciated. No effusions in the visualized lungbases. No worrisome marrow signal change is identified. No ascites orfluid collections. IMPRESSION: Substantial diminishment in volume of fat-containing left renal mass, longpresumed angiomyolipoma. No new masses of concern identified. Rachana Person Charmaine MBBS IMG MR ABDOMEN Final Resu lt documented in this encounter Visit Diagnoses Diagnosis Renal angiomyolipoma Benign neoplasm of kidney, except pelvis Renal angiomyolipoma Benign neoplasm of kidney, except pelvis documented in this encounter Care Teams Teacher Of Gifted Students Relationship Specialty Start Date End Date Name, MD Brandon [address] [place] [address] PCP - General Internal Medicine 08/23/14 Eugenia Lopez NP [address] [place] [address] Historical LMR Provider 07/06/17 2 Bertha Meléndez MD [address] [place] [place] [address] Historical LMR Provider 07/06/17 09/26/21 Radha Desouza NP [address] [place] [address] Historical LMR Provider 07/06/17 2 Abdirahman De La O MD [address] [place] [place] [address] Historical LMR Provider 07/06/17 09/26/21 Rashida Concepcion RDCS Historical LMR Provider 07/06/17 09/26/21 Name, MD Brandon [address] [place] [address] Historical LMR Provider 07/06/17 2 She Winkler MD [address] [address] [email or web address] Historical LMR Provider 07/06/17 09/26/21 Gallo Harvey MD [address] [place] [address] Historical LMR Provider 07/06/17 2 documented as of this encounter Additional Source Comments The information contained in this document represents components of the legal health record. It is not the complete legal health record.[facility]
--- OUTSIDE RECORDS SUMMARY | 2025-06-06 08:12 | XMS_ITS | Clinical Summary ---
Author Organization [employer] Address [address] [facility] 7t [place] [address] Care Team Providers Care Street Sprinkler Name Role Phone Name, Brandon FUNEZ Primary Care Provider [phone] Allergies Active Allergy Reactions Criticality Noted Date [...] Encounters Date Type Department Care Team Description 05/17/2025 Telephone [facility] MEDICINE [address] [place] [phone] Becky Hester MA oct recalls 03/25/2025 Orders Only [facility] External Provider, [facility] 03/06/2025 Orders Only GENERIC EXTERNAL DATA DEPARTMENT Provider, Generic External Data from Last 3 Months Immunizations Immunization Administration [...] t he electric, gas, oil or water [employer] threatened to shut off services in your [...] 67 10/10/2024 10:14 AM EST Temperature 36.2 C (97.1 F) 10/10/2024 10:14 AM EST Respiratory Rate 20 10/10/2024 10:14 AM EST Oxygen Saturation 99% 10/10/2024 10:14 AM EST Inhaled Oxygen Concentration - - Weight 80.1 kg (176 lb 9.6 oz) 10/10/2024 10:14 AM EST Height 167.6 cm (5' 6 ) 10/10/2024 10:14 AM EST Body Mass Index 28.5 10/10/2024 10:14 AM EST Plan of Treatment Upcoming Encounters Date Type Department Care Team (Late st Contact Info) Description 08/02/2025 2:15 PM EST Office Visit [facility] MEDICINE [address] [place] [address] Name, MD Brandon [address] [place] [address] Health Maintenance Due Date Last Done Comments CT Colonography 1970 FIT DNA/Cologuard 1970 FIT 1970 FOBT 1970 HIV Screening 1970 Sigmoidoscopy 1970 Disability Screening 1970 Alcohol/Substance Use Screening 1982 Hepatitis B Vaccines (1 of 3 - 19+ 3-dose series) 1989 Pneumococcal Vaccine: 50+ Years (1 of 1 - PCV) 2020 Influenza Vaccine (#1) 2025 4, 06/10/2023, 06/11/2022, Additional history exists SDOH Screening 07/17/2025 07/17/2024 Tobacco Screening 07/17/2025 [...] patient's age to complete this topic Meningococcal B Vaccine Aged Out No l onger eligible based on patient's age to complete [...] Procedure Name Priority Date/Time Associated Diagnosis Comments MR PELVIS W AND WO CONTRAST Routine 03/25/2025 10:00 AM EDT CA 19-9 Routine 03/06/2025 8:41 AM EDT CA 125 Routine 03/06/2025 8:41 AM EDT CEA Routine 03/06/2025 8:41 AM EDT BI US BREAST COMPLETE BILATERAL Routine 07/25/2024 11:00 AM EST PAP SMEAR Routine 01/25/2024 3:45 PM EDT HEPATITIS C ANTIBODY Routine 07/22/2023 8:46 AM EDT Need for hepatitis C screening test HM COLONOSCOPY Routine 05/09/2020 ZZZ HISTORICAL HPV MRNA E6/E7 Routine 06/21/2019 9:30 AM EDT from Last 3 Months or Most Recently Relevant to Health Maintenance Results * MR Pelvis w/ and w/o Contrast (03/25/2025 10:00 AM EDT) Anatomical Region Laterality Modality Body, Pelvis Magnetic Resonan ce 03/25/2025 10:0 0 AM EDT Narrative 03/25/2025 11:30 AM EDT [place] [address] Magnetic Resonance Report Signed Patient: Genesis Wagner MR#: [id number] : 1970 Acct:[id number] Age/Sex: 54 / F ADM Date: 03/25/25 Loc: HO.MRI Attending Dr: Michelle Joyce CNM Ordering Physician: Michelle Joyce CNM Date of Service: 03/25/25 Procedure(s): MR pelvis wo/w con Accession Number(s): [id number] cc: Michelle Joyce CNM; Name,Brandon FUNEZ EXAMINATION: MR PELVIS WITHOUT THEN WITH IV CONTRAST HISTORY: N83.8 - Other noninflammatory disorders of ovary, fallopian tube and bro.... TECHNIQUE: Axial T1, fat-suppressed T1, fat-suppressed T2, and sagittal and coronal T2-weighted MR images of the pelvis were obtained. Subsequently, axial and sagittal fat-suppressed T1-weighted images were obtained after the intravenous administration of 8.5 mm Gadavist. COMPARISON: Correlation is made with a pelvic ultrasound dated 03/04/2025. FINDINGS: The uterus measures approximately 8.3 x 4.9 x 5.8 cm. Multiple fibroids are identified including of 2.4 cm intramural fibroid, anterior fibroids measuring up to 1.9 cm, and posterior fibroids measuring up to 1.7 cm. Multiple additional fibroids are noted which distort the endometrial canal. No definite thickening of the junctional zone. The cervix is unremarkable. The right ovary measures approximately 1.8 x 1.1 x 1.6 cm and demonstrates multiple small follicles. There is a septated cyst in the left adnexa measuring approximately 5.2 x 5.2 x 4.1 cm. There is enhancement of the wall which is smooth without associated nodular components. There is minimal enhancement of the septa. There is a small amount of free fluid in the cul-de-sac. There is no pelvic lymphadenopathy. Incidental note is made of a 3.5 cm right renal cyst. MR/MR pelvis wo/w con IMPRESSION: 1. Fibroid uterus as described. 2. 5.2 x 5.2 x 4.1 cm septated left adnexal cyst. As the lesion has not resolved since 05/01/2024, surgical consultation is suggested. Electronically signed by: Kumar Lancaster MD 03/25/2025 11:27 AM EDT Dictated By: Kumar aLncaster MD Signed By: <Electronically signed by Kumar Lancaster MD in OV> 03/25/25 1127 DD/ 1000 TD/TT: 03/25/25 1100 Cultural Centre Manager: Procedure Note Donotuseinterpreter, Image - 03/25/2025 [place] [address] Magnetic Resonance Report Signed Patient: Genesis Wagner [facility]#: [id number] : 1970Acct:[id number] Age/Sex: 54 / FADM Date: 03/25/25 Loc: HO.MRI Attending Dr: Michelle Joyce CNM Ordering Physician: Michelle Joyce CNM Date of Service: 03/25/25 Procedure(s): MR pelvis wo/w con Accession Number(s): [id number] cc: Michelle Joyce CNM; Name,Brandon FUNEZ EXAMINATION: MR PELVIS WITHOUT THEN WITH IV CONTRAST HISTORY: N83.8 - Other noninflammatory disorders of ovary, fallopian tube and bro.... TECHNIQUE: Axial T1, fat-suppressed T1, fat-suppressed T2, and sagittal and coronal T2-weighted MR images of the pelvis were obtained. Subsequently, axial and sagittal fat-suppressed T1-weighted images were obtained after the intravenous administration of 8.5 mm Gadavist. COMPARISON: Correlation is made with a pelvic ultrasound dated 03/04/2025. FINDINGS: The uterus measures approximately 8.3 x 4.9 x 5.8 cm. Multiple fibroids are identified including of 2.4 cm intramural fibroid, anterior fibroids measuring up to 1.9 cm, and posterior fibroids measuring up to 1.7 cm. Multiple additional fibroids are noted which distort the endometrial canal. No definite thickening of the junctional zone. The cervix is unremarkable. The right ovary measures approximately 1.8 x 1.1 x 1.6 cm and demonstrates multiple small follicles. There is a septated cyst in the left adnexa measuring approximately 5.2 x 5.2 x 4.1 cm. There is enhancement of the wall which is smooth without associated nodular components. There is minimal enhancement of the septa. There is a small amount of free fluid in the cul-de-sac. There is no pelvic lymphadenopathy. Incidental note is made of a 3.5 cm right renal cyst. MR/MR pelvis wo/w con IMPRESSION: 1. Fibroid uterus as described. 2. 5.2 x 5.2 x 4.1 cm septated left adnexal cyst. As the lesion has not resolved since 05/01/2024, surgical consultation is suggested. Electronically signed by: Kumar Lancaster MD 03/25/2025 11:27 AM EDT RP Dictated By: Kumar Lancaster MD Signed By: <Electronically signed by Kumar Lancaster MD in OV> 03/25/25 1127 DD/ 1000 TD/TT: 03/25/25 1100 Cultural Centre Manager: [facility] External Provider IMG MRI PROCEDURES Final Result * CA 19-9 (03/06/2025 8:41 AM EDT) CA 19-9 10 <34 U/mL [facility] Comment:This test was perfor med using the Siemenschemiluminescent method. Values obtained fromdifferent assay methods cannot be usedinterchangeably. CA 19-9 levels, regardless ofvalue, should not be interpreted as absoluteevidence of the presence or absence of disease.THIS TEST WAS PERFORMED AT:[address] [place] [phone] SANCHEZ MD 03/06/2025 8:41 AM EDT 03/06/2025 8:41 AM EDT Generic External Data Provider LAB BLOOD ORDERAB LES Final Result [facility] [address] [place] [phone] * CA 125 (03/06/2025 8:41 AM EDT) CA 125 5 <35 U/mL [facility] Comment:This test was perfor med using the SiemensChemiluminescent method. Values obtained fromdifferent assay methods cannot be usedinterchangeably. CA 125 levels, regardless ofvalue, should not be interpreted as absoluteevidence of the presence or absence of disease.THIS TEST WAS PERFORMED AT:[address] [place] [phone] SANCHEZ MD 03/06/2025 8:41 AM EDT 03/06/2025 8:41 AM EDT us Generic External Data Provider LAB BLOOD ORDERAB LES Final Result Performing Organization Address [facility] Co de Phone Number [facility] [address] [place] [phone] * CEA (03/06/2025 8:41 AM EDT) Carcinoembryonic Antigen <1.73 ng/mL [facility] Comment:CEA Reference Range: 93.4% Non-Smokers = 0.0-3.0 ng/mL 95.6% Smokers = 0.0-5.0 ng/mLCEA Methodology: Griffin Alinity i ChemiluminescentMicroparticle Immunoassay (CMIA)CEA testing can have significant value in monitoring ofpatients with diagnosed malignancies in whom changingconcentrations of CEA are observed. Values obtained withdifferent assay methods cannot be used interchangeably. 03/06/2025 8:41 AM EDT 03/06/2025 8:41 AM EDT us Generic External Data Provider LAB BLOOD ORDERAB LES Final Result Performing Organization Address [facility] Co de Phone Number [facility] [address] [place] [phone] * BI US Breast Complete Bilateral (07/25/2024 11:00 AM EST) Anatomical Region Laterality Modality Breast Bilateral Ultrasound 07/25/2024 11:0 0 AM EST Narrative 07/25/2024 12:36 PM EST [facility] [address] [place] [address] Ultrasound Report Signed Patient: Genesis Wagner MR#: [id number] : 1970 Acct:[id number] Age/Sex: 54 / F ADM Date: 07/25/24 Loc: HO.MAMMO Attending Dr: Hayder An MD Ordering Physician: Hayder An MD Date of Service: 07/25/24 Procedure(s): US breast BI complete Accession Number(s): [id number] cc: Michelle Joyce CNM; Hayder An MD; Name,Brandon FUENZ; Chery Marte PHONE ENGINEER EXAMINATION: US SCREENING ULTRASOUND BREAST, BILATERAL CLINICAL [...] by: Edmond Phipps MD 07/25/2024 12:32 PM [facility] Dictated By: Edmond Phipps MD Signed By: <Electronically signed by Edmond Phipps MD in OV> 07/25/24 1232 DD/ 1100 TD/TT: 07/25/24 1131 Cultural Centre Manager: Procedure Note Donotuseinterpreter, Image - 07/25/2024 [place] [facility]'s [address] [place], [place] [address] Ultrasound Report Signed Patient: Genesis Wagner [facility]#: [id number] : 1970Acct:[id number] Age/Sex: 54 / FADM Date: 07/25/24 Loc: HO.MAMMO Attending Dr: Hayder An MD Ordering Physician: Hayder An MD Date of Service: 07/25/24 Procedure(s): US breast BI complete Accession Number(s): [id number] cc: Michelle Joyce CNM; Hayder An MD; Name,Brandon FUNEZ; Sarah Marte PHONE ENGINEER EXAMINATION: US SCREENING ULTRASOUND BREAST, BILATERAL CLINICAL INFORMATION: Dense breasts on mammography. Screening ultrasound. COMPARISON: No prior ultrasound. Correlation made with mammography 05/31/2024 and priors to 2018. TECHNIQUE: Ultrasound bilateral breasts is performed using [...] by: Edmond Phipps MD 07/25/2024 12:32 PM [facility] Dictated By: Edmond Phipps MD Signed By: <Electronically signed by Edmond Phipps MD in OV> 07/25/24 1232 DD/ 1100 TD/TT: 07/25/24 1131 Cultural Centre Manager: [facility] External Provider IMG US PROCEDURES Final Result * Pap Smear (01/25/2024 3:45 PM EDT) 01/25/2024 3:45 PM EDT 01/27/2024 7:00 AM EDT [facility] - 02/11/2024 5:47 PM EDT ----- ------- Name: Genesis Wagner Age/Sex: 53/F : 1970 Unit#: [id number] Attend Dr: Michelle Joyce CNM Re01/25/24 Status: DEP REF Location: [facility] Disch: ----- ------- SPEC : [id number] RECD: 01/27/24 STATUS: COMFORT [facility]AMS NUM: [id number] BRUNO: 01/25/24-1545 [facility] DR: Michelle Joyce CNM ENTERED: 01/27/24 SP TYPE: Pap Smr OTHR DR: Brandon Kilgore MD ORDERED: Pap Smear Interpretation Satisfactory for evaluation. Negative for intraepithelial lesion or malignancy. HPV mRNA E6/E7: NOT DETECTED This assay detects E6/E7 viral messenger RNA (mRNA) from 14 high-risk HPV types (16, 18, 31, 33, 35, 39, 45, 51, 52, 56, 58, 59, 66, 68) HPV testing performed by [employer], [place], [place]. See reference laboratory portion of the EMR for entire report. Clinical Information LMP: 04/2023 Previous PAP test: 2019, WNL Material Received ThinPrep-Cervical Copies To: Michelle Joyce CNM [address] [place] [address] [address] [place] [address] Name,Brandon FUNEZ [address] [place] [address] ----- ------- Signed (signature on file) Sharon Farmer 02/11/24 1747 ----- ------- END OF REPORT Generic External Data Provider LAB CYTOLOGY ORDE RABLES Final Result Performing Organization Address [facility]/ZIP Co de Phone Number [facility] [address] [place] [phone] * Hepatitis C Ab (07/22/2023 8:46 AM EDT) [facility] Hepatitis C Antibody Nonreactive Nonreactive [facility] Comment:Antibodies to HCV no t detected; does not exclude early acuteHCV infection. Blood Venous blood specimen / Unknown 07/22/2023 8:46 AM EDT 07/22/2023 11:13 AM EDT Brandon Kilgore MD LAB BLOOD ORDERABLES Final Resul t Performing Organization Address [facility]/ZIP Co de Phone Number [facility] [address] [place] [phone] * Colonoscopy (05/09/2020) [facility] Colonoscopy Normal Normal Kumar Collins MD HEALTH MAINTENANCE Final Result * HPV mRNA E6/E7 (06/21/2019 9:30 AM EDT) [facility] HPV mRNA E6/E7 Not Detected NOT DETECTED [facility] Comment: This test was performed using the APTIMA(R) HPV Assay ([employer] This assay detects E6/E7 viral messenger RNA (mRNA) from 14 high-risk HPV types (16,18,31,33,35,39,45,51, 52,56,58,59,66,68). For additional information please refer to: http://education.Umbrella Here/faq/NVW464n6 (This link is being provided for informational/ educational purposes only.) The analytical performance characteristics of this assay have been determined by [facility] [place], [place]. The modifications have not been cleared or approved by the FDA. This assay has been validated pursuant to the CLIA regulations and is used for clinical purposes. Test Performed by [facility] Jose Guadalupe, [facility] [place], [address] [place] [address] Tai Gupta M.D., Ph.D., Director of Laboratories , CLIA [id number] Please note: Effective 05/31/2016, HPV testing will be performed using [employer]'s APTIMA test which targets mRNA. Detecting mRNA instead of DNA, as in older methods, offers significant improvements in specificity. 06/21/2019 9:30 AM EDT us Sharri Stout CNM HISTORICAL/NON ORDERABLE LABS Final Result [facility] [address] from Last 3 Months or Most Recently Relevant to Health Maintenance Insurance [facility] HMO Care Teams Street Sprinkler Relationship Specialty Start Date End Date Name, MD Brandon [address] [place] [phone] PCP - General Family Medicine 09/19/18
--- OUTSIDE RECORDS SUMMARY | 2025-06-06 08:12 | XMS_ITS | Encounter Summary ---
Author Organization [employer] Address [address] [place] [address] [address] [place] [address] Care Team Providers Care Welding Systems And Equipment Repairer Name Role Phone Name, Brandon FUNEZ Primary Care Provider [phone] Encounter Details Date Type Department Care Team ([facility] Contact Info) Description 03/08/2023 Abstract [facility] MED & PEDS [address] [place], [place] [phone] Name, MD Brandon [address] [place] [phone] Social History Tobacco Use Types Packs/Day Years Used Date Smoking Tobacco: Some Days Cigarettes Smokeless Tobacco: Never Comments Unknown Sex and Gender Information Value Date Recorded Sex Assigned at Female 07/19/2022 10:29 AM EDT Legal Sex Female 10:29 AM EDT Gender Identity Female 07/19/2022 10:29 AM EDT Sexual Orientation Straight 07/19/2022 10 :29 AM EDT documented as of this encounter Plan of Treatment Upcoming Encounters Date Type Department Care Team (Late Contact Info) Description 08/02/2025 2:15 PM EST Office Visit [facility] MEDICINE [address] [place] [address] [phone] Name, MD Brandon [address] [place] [address] [phone] documented as of this encounter Visit Diagnoses Not on filedocumented in this encounter Care Teams Welding Systems And Equipment Repairer Relationship Specialty Start Date End Date NameBrandon MD [address] [place] [address] [phone] PCP - General Family Medicine 09/19/18 documented as of this encounter
--- OUTSIDE RECORDS SUMMARY | 2025-06-06 08:12 | XMS_ITS | Encounter Summary ---
Author Organization [facility] Address [facility] [address] [place] [address] Phone Care Team Providers Care Prefabricator Name Role Phone Name, Brandon FUNEZ Primary Care Provider [phone] Eugenia Lopez CHECKER AND PACKER Unavailable [phone] Bertha Meléndez MD Unavailable Radha Desouza CHECKER AND PACKER Unavailable [phone] Abdirahman De La O MD Unavailable [phone] Rashida Concepcion [facility] Unavailable [email or web address] Name, Brandon FUNEZ Unavailable She Winkler MD Unavailable [phone] Gallo Harvey MD Unavailable [phone] Encounter Details Date Type Department Care Team (Late st Contact Info) Description 09/30/2020 Procedure Pass [facility], [address] [place] [address] Social History Tobacco Use Types Packs/Day Years [...] on filedocumented in this encounter Care Teams Prefabricator Relationship Specialty Start Date End Date Name, MD Brandon [address] [place] [address] PCP - General Internal Medicine 08/23/14 Eugenia Lopez, [employer]ER AND PACKER [address] [place] [phone] Historical LMR Provider 07/06/17 2 Bertha Meléndez MD [address] [place] [address] Historical LMR Provider 07/06/17 09/26/21 Radha Desouza NP [address] [place] [address] Historical LMR Provider 07/06/17 2 Abdirahman De La O MD [address] [place] [address] Historical LMR Provider 07/06/17 09/26/21 Rashida Concepcion, [facility] Historical LMR Provider 07/06/17 09/26/21 Name, MD Brandon [address] [place] [address] Historical LMR Provider 07/06/17 2 She Winkler MD [address] [place] [address] Historical LMR Provider 07/06/17 09/26/21 Gallo Harvey MD [address] [place] [address] Historical LMR Provider 07/06/17 2 documented as of this encounter Additional Source Comments The information contained in this document represents components of the legal health record. It is not the complete legal health record.[facility]
--- OUTSIDE RECORDS SUMMARY | 2025-06-06 08:12 | XMS_ITS | Encounter Summary ---
Author Organization [facility] Address [address] [place] [address] [place] [address] Phone Care Team Providers Care Cattle Examiner Name Role Phone Name, Brandon FUNEZ Primary Care Provider Eugenia Lopez TYPISTS SUPERVISOR Unavailable [phone] Bertha Meléndez MD Unavailable Radha Desouza TYPISTS SUPERVISOR Unavailable [phone] Abdirahman De La O MD Unavailable [phone] Unavailable [email or web address] Name, Brandon FUNEZ Unavailable She Winkler MD Unavailable [phone] Gallo Harvey MD Unavailable [phone] Reason for Referral * MRI/CAT Scan - Closed Specialty Diagnoses / Procedures Referred By Hunter t Referred To Contact Radiology Diagnoses Renal angiomyolipoma, left Procedures MRI Abdomen Pricila Honeycutt MD Phone: tel: fax: Referral ID Status Reason Start Date Expiration Date Visits Re quested Visits Authorized [id number] Closed 06/11/2016 07/11/2016 1 1 Encounter Details Date Type Department Care Team (Latest Contact Info) Description 05/25/2016 Ancillary Orders [facility] [address], 7[address], [address] [place] [address] Pricila Honeycutt MD [address] [place] [address] Renal angiomyolipoma, left (Primary Dx) Social History Tobacco Use Types Packs/Day Years Used Date Smoking Tobacco: Former Comments Unknown Sex and Gender Information Value Date Recorded Sex Assigned at Not on file Legal Sex Female 3:15 PM EST Gender Identity Not on file Sexual Orientation Not on file documented as of this encounter Plan of Treatment Not on file documented as of this encounter Results * MRI ABDOMEN (ADRENALS) WITH AND WITHOUT CONTRAST (06/11/2016 9:33 AM EDT) Anatomical Region Laterality Modality Abdomen Magnetic Resonan ce 06/11/2016 10:0 8 AM EDT Impressions 06/11/2016 4:00 PM EDT IMPRESSION: Left renal angiomyolipoma is increased in size from comparison study. Narrative 06/11/2016 4:00 PM EDT TECHNIQUE: MR of the kidneys and adrenals WITH and WITHOUT intravenous gadolinium. COMPARISON: Renal MRI May 09, 2015 FINDINGS: ADRENALS: No nodules. KIDNEYS: * Left upper pole renal angiomyolipoma measures 6.6 x 7.6 x 7.9 cm (by my measurements, previously measured 6.4 x 6.2 x 7.2 measurements). Macroscopic fat and enhancement appears similar to before. * Right 3.8 cm renal cyst is unchanged. HEPATOBILIARY: No hepatic signal abnormality. No focal hepatic lesions. No ductal dilatation. PANCREAS: No focal masses or ductal dilatation. SPLEEN: No splenomegaly. PERITONEUM / RETROPERITONEUM: No upper abdominal free fluid. LYMPH NODES: No upper abdominal lymphadenopathy. VESSELS: Unremarkable. BONES AND SOFT TISSUES: Unremarkable. Procedure Note Juan Zafar MD - 06/11/2016 TECHNIQUE: MR of the kidneys and adrenals WITH and WITHOUT intravenous gadolinium. COMPARISON: Renal MRI May 09, 2015 FINDINGS: ADRENALS: No nodules. KIDNEYS: * Left upper pole renal angiomyolipoma measures 6.6 x 7.6 x 7.9 cm (bymy measurements, previously measured 6.4 x 6.2 x 7.2 measurements).Macroscopic fat and enhancement appears similar to before. * Right 3.8 cm renal cyst is unchanged. HEPATOBILIARY: No hepatic signal abnormality. No focal hepatic lesions.No ductal dilatation. PANCREAS: No focal masses or ductal dilatation. SPLEEN: No splenomegaly. PERITONEUM / RETROPERITONEUM: No upper abdominal free fluid. LYMPH NODES: No upper abdominal lymphadenopathy. VESSELS: Unremarkable. BONES AND SOFT TISSUES: Unremarkable. IMPRESSION: IMPRESSION: Left renal angiomyolipoma is increased in size from comparison study. us Pricila Honeycutt MD IMG MR ABDOMEN Final Result documented in this encounter Visit Diagnoses Diagnosis Renal angiomyolipoma, left- Primary Angiomyolipoma of left kidney documented in this encounter Care Teams Cattle Examiner Relationship Specialty Start Date End Date Name, MD Brandon [address] [place] [address] PCP - General Internal Medicine 08/23/14 Eugenia Lopez NP [address] [place] [address] Historical LMR Provider 07/06/17 2 Bertha Meléndez MD [address] [place] [address] Historical LMR Provider 07/06/17 09/26/21 Radha Desouza NP [address] [place] [address] Historical LMR Provider 07/06/17 2 Abdirahman De La O MD [address] [place] [address] Historical LMR Provider 07/06/17 09/26/21 Rashida Concepcion, RDCS Historical LMR Provider 07/06/17 09/26/21 Name, MD Brandon [address] [place] [address] Historical LMR Provider 07/06/17 2 She Winkler MD [address] [place] [address] [email or web address] Historical LMR Provider 07/06/17 09/26/21 Gallo Harvey MD [address] [place] [address] Historical LMR Provider 07/06/17 2 documented as of this encounter Additional Source Comments The information contained in this document represents components of the legal health record. It is not the complete legal health record.[facility]
--- OUTSIDE RECORDS SUMMARY | 2025-06-06 08:12 | XMS_ITS | Encounter Summary ---
Author Organization [facility] Address [facility] [address] [place] [address] Phone Care Team Providers Care Inspector Pawnshop Detail Name Role Phone Name, Brandon FUNEZ Primary Care Provider [phone] Eugenia Lopez ADVANCE SCOUT Unavailable [phone] Bertha Meléndez MD Unavailable Radha Desouza ADVANCE SCOUT Unavailable [phone] Abdirahman De La O MD Unavailable [phone] Rashida Concepcion [facility] Unavailable [email or web address] Name, Brandon FUNEZ Unavailable She Winkler MD Unavailable [phone] Gallo Harvey MD Unavailable [phone] Encounter Details Date Type Department Care Team (Late st Contact Info) Description 08/28/2020 Procedure Pass [facility], [address] [place] [address] Social History Tobacco Use Types Packs/Day Years [...] on file documented as of this encounter Last Filed Vital Signs Vital Sign Reading Time Taken Comments Blood Pressure - - Pulse - - Temperature - - Respiratory Rate - - Oxygen Saturation - - Inhaled Oxygen Concentration - - Weight 83.9 kg (185 lb) 08/30/2020 1:16 PM EST Height 167.6 cm (5' 6 ) 08/30/2020 1:16 PM EST Body Mass Index 29.86 08/30/2020 1:16 PM EST documented in this encounter Plan of Treatment Not on file documented as of this encounter Visit Diagnoses Not on filedocumented in this encounter Care Teams Inspector Pawnshop Detail Relationship Specialty Start Date End Date Name, MD Brandon [address] [place] [address] PCP - General Internal Medicine 08/23/14 Eugenia Lopez NP [address] [place] [address] Historical LMR Provider 07/06/17 2 Bertha Meléndez MD [address] [place] [address] Historical LMR Provider 07/06/17 09/26/21 Radha Desouza NP [address] [place] [address] Historical LMR Provider 07/06/17 2 Abdirahman De La O MD [address] [place] [address] Historical LMR Provider 07/06/17 09/26/21 Rashida Concepcion, VEE Historical LMR Provider 07/06/17 09/26/21 Magui, MD Brandon [address] [place] [address] Historical LMR Provider 07/06/17 2 She Winkler MD [address] [place] [address] [email or web address] Historical LMR Provider 07/06/17 09/26/21 Gallo Harvey MD [address] [place] [address] Historical LMR Provider 07/06/17 2 documented as of this encounter Additional Source Comments The information contained in this document represents components of the legal health record. It is not the complete legal health record.[facility]
--- OUTSIDE RECORDS SUMMARY | 2025-06-06 08:12 | XMS_ITS | Encounter Summary ---
Author Organization [facility] Address [facility] [employer] [facility] [address] [place] [address] Phone Care Team Providers Care Senior Project Leader/Team Lead Name Role Phone Name, Brandon FUNEZ Primary Care Provider Eugenia Lopez SUPERINTENDENT SALES Unavailable [phone] Bertha Meléndez MD Unavailable Radha Desouza SUPERINTENDENT SALES Unavailable [phone] Abdirahman De La O MD Unavailable [phone] [address] RDCS Unavailable [email or web address] Name, Brandon FUNEZ Unavailable She Winkler MD Unavailable [phone] Gallo Harvey MD Unavailable [phone] Encounter Details Date Type Department Care Team (Late st Contact Info) Description 05/13/2017 Ancillary Orders [facility] Hepatobiliary Clinic [address] [facility], 7th Floor, [address] [place] [address] Pricila Honeycutt MD [facility] [place] [address] Angiomyolipoma Social History Tobacco Use Types Packs/Day Years Used Date Smoking Tobacco: Former Comments Unknown Sex and Gender Information Value Date Recorded Sex Assigned at Not on file Legal Sex Female 3:15 PM EST Gender Identity Not on file Sexual Orientation Not on file documented as of this encounter Plan of Treatment Not on file documented as of this encounter Visit Diagnoses Diagnosis Angiomyolipoma documented in this encounter Care Teams Senior Project Leader/Team Lead Relationship Specialty Start Date End Date Name, MD Brandon [address] [place] [address] PCP - General Internal Medicine 08/23/14 Eugenia Lopez SUPERINTENDENT SALES [address] [place] [address] Historical LMR Provider 07/06/17 2 Bertha Meléndez MD [address] [place] [address] Historical LMR Provider 07/06/17 09/26/21 Radha Desouza NP [address] [place] [address] Historical LMR Provider 07/06/17 2 Abdirahman De La O MD [address] [place] [address] Historical LMR Provider 07/06/17 09/26/21 Rashida Concepcion, [facility] Historical LMR Provider 07/06/17 09/26/21 Name, MD Brandon [address] [place] [address] Historical LMR Provider 07/06/17 2 She Winkler MD [address] [place] [address] Historical LMR Provider 07/06/17 09/26/21 Gallo Harvey MD [address] [place] [address] Historical LMR Provider 07/06/17 2 documented as of this encounter Additional Source Comments The information contained in this document represents components of the legal health record. It is not the complete legal health record.[facility]
--- OUTSIDE RECORDS SUMMARY | 2025-06-06 08:13 | XMS_ITS | Encounter Summary ---
Author Organization [facility] Address [address] [employer] [address] [place] [address] Phone Care Team Providers Care Furniture Sales Consultant Name Role Phone Name, Brandon FUNEZ Primary Care Provider [phone] Encounter Details Date Type Department Care Team (Late st Contact Info) Description 10/05/2022 Procedure Pass [facility] [address] [place] [address] Social History Tobacco Use Types Packs/Day Years [...] on filedocumented in this encounter Care Teams Furniture Sales Consultant Relationship Specialty Start Date End Date Name, MD Brandon [address] [place] [address] PCP - General Internal Medicine 08/23/14 documented as of this encounter Additional Source Comments The information contained in this document represents components of the legal health record. It is not the complete legal health record.[facility]
--- OUTSIDE RECORDS SUMMARY | 2025-06-06 08:13 | XMS_ITS | Encounter Summary ---
Author Organization [facility] Address [address] [employer] [facility] [address] [place] [address] Phone Care Team Providers Care Bullet Lubricating Machine Operator Name Role Phone Name, Brandon FUNEZ Primary Care Provider [phone] Encounter Details Date Type Department Care Team (Late st Contact Info) Description 03/04/2023 Procedure Pass [facility], [address] [place] [address] Social History Tobacco Use Types Packs/Day Years [...] on filedocumented in this encounter Care Teams Bullet Lubricating Machine Operator Relationship Specialty Start Date End Date Name, MD Brandon [address] [place] [address] PCP - General Internal Medicine 08/23/14 documented as of this encounter Additional Source Comments The information contained in this document represents components of the legal health record. It is not the complete legal health record.[facility]
--- OUTSIDE RECORDS SUMMARY | 2025-06-06 08:13 | XMS_ITS | Encounter Summary ---
Author Organization [facility] Address [address] [employer] [facility] [address] [place] [address] Phone Care Team Providers Care Hazardous Materials Analyst Name Role Phone Name, Brandon FUNEZ Primary Care Provider [phone] Eugenia Lopez HOUSING PROPERTY MANAGER Unavailable [phone] Bertha Meléndez MD Unavailable Radha Desouza HOUSING PROPERTY MANAGER Unavailable [phone] Abdirahman De La O MD Unavailable [phone] Rashida Concepcion [facility] Unavailable [email or web address] Name, Brandon FUNEZ Unavailable She Winkler MD Unavailable [phone] Gallo Harvey MD Unavailable [phone] Encounter Details Date Type Department Care Team (Late st Contact Info) Description 06/30/[address] [facility] [address] [place] [address] Social History Tobacco Use Types Packs/Day Years [...] on filedocumented in this encounter Care Teams Hazardous Materials Analyst Relationship Specialty Start Date End Date Name, MD Brandon [address] [place] [address] PCP - General Internal Medicine 08/23/14 Eugenia Lopez NP [address] [place] [address] Historical LMR Provider 07/06/17 2 Bertha Meléndez MD [address] [place] [address] Historical LMR Provider 07/06/17 09/26/21 Radha Desouza NP [address] [place] [address] Historical LMR Provider 07/06/17 2 Abdirahman De La O MD [address] [place] [address] Historical LMR Provider 07/06/17 09/26/21 Rashida Concepcion, RDCS Historical LMR Provider 07/06/17 09/26/21 Brandon Kilgore MD [address] [place] [address] Historical LMR Provider 07/06/17 2 She Winkler MD [address] [place] [address] Historical LMR Provider 07/06/17 09/26/21 Gallo Harvey MD [address] [place] [address] Historical LMR Provider 07/06/17 2 documented as of this encounter Additional Source Comments The information contained in this document represents components of the legal health record. It is not the complete legal health record.[facility]
--- OUTSIDE RECORDS SUMMARY | 2025-06-06 08:13 | XMS_ITS | Encounter Summary ---
Author Organization [facility] Address [address] [employer] [facility] [address] [place] [address] Phone Care Team Providers Care Snowmobile Mechanic Name Role Phone Name, Brandon FUNEZ Primary Care Provider [phone] Eugenia Lopez CANOE BUILDER Unavailable [phone] Bertha Meléndez MD Unavailable Radha Desouza CANOE BUILDER Unavailable [phone] Abdirahman De La O MD Unavailable [phone] Rashida Concepcion [facility] Unavailable [email or web address] Name, Brandon FUNEZ Unavailable She Winkler MD Unavailable [phone] Gallo Harvey MD Unavailable [phone] Encounter Details Date Type Department Care Team (Late st Contact Info) Description 06/30/2018 Procedure Pass [facility] [address] [place] [address] Social History Tobacco Use Types Packs/Day Years [...] on filedocumented in this encounter Care Teams Snowmobile Mechanic Relationship Specialty Start Date End Date Name, MD Brandon [address] [place] [address] PCP - General Internal Medicine 08/23/14 Eugenia Lopez NP [address] [place] [address] Historical LMR Provider 07/06/17 2 Bertha Meléndez MD [address] [place] [address] Historical LMR Provider 07/06/17 09/26/21 Radha Desouza NP [address] [place] [address] Historical LMR Provider 07/06/17 2 Abdirahman De La O MD [address] [place] [address] Historical LMR Provider 07/06/17 09/26/21 Rashida Concepcion, RDCS Historical LMR Provider 07/06/17 09/26/21 Brandon Kilgore MD [address] [place] [address] Historical LMR Provider 07/06/17 2 She Winkler MD [address] [place] [address] Historical LMR Provider 07/06/17 09/26/21 Gallo Harvey MD [address] [place] [address] Historical LMR Provider 07/06/17 2 documented as of this encounter Additional Source Comments The information contained in this document represents components of the legal health record. It is not the complete legal health record.[facility]
--- OUTSIDE RECORDS SUMMARY | 2025-06-06 08:14 | XMS_ITS | Encounter Summary ---
Author Organization [facility] Address [facility] [employer] [facility] [address] [place] [address] Phone Care Team Providers Care Bowling Teacher Name Role Phone Name, Brandon FUNEZ Primary Care Provider [phone] Eugenia Lopez NEON SIGN INSTALLER Unavailable [phone] Bertha Meléndez MD Unavailable Radha Desouza NEON SIGN INSTALLER Unavailable [phone] Abdirahman De La O MD Unavailable [phone] Rashida Concepcion [facility] Unavailable [email or web address] Name, Brandon FUNEZ Unavailable She Winkler MD Unavailable [phone] Gallo Harvey MD Unavailable [phone] Encounter Details Date Type Department Care Team (Late st Contact Info) Description 07/03/2019 Procedure Pass [address] [place] [address] Social History Tobacco Use Types Packs/Day Years [...] - Inhaled Oxygen Concentration - - Weight 85.3 kg (188 lb) 07/04/2019 5:34 PM EDT Height 167.6 cm (5' 6 ) 07/04/2019 5:34 PM EDT Body Mass Index 30.34 07/04/2019 5:34 PM EDT documented in this encounter Plan of Treatment Not on file documented as of this encounter Visit Diagnoses Not on filedocumented in this encounter Care Teams Bowling Teacher Relationship Specialty Start Date End Date Name, MD Brandon [address] [place] [address] PCP - General Internal Medicine 08/23/14 Eugenia Lopez NP [address] [place] [address] Historical LMR Provider 07/06/17 2 Bertha Meléndez MD [address] [place] [address] Historical LMR Provider 07/06/17 09/26/21 Radha Desouza NP [address] [place] [address] Historical LMR Provider 07/06/17 2 Abdirahman De La O MD [address] [place] [address] Historical LMR Provider 07/06/17 09/26/[address] Historical LMR Provider 07/06/17 09/26/21 Magui, MD Brandon [address] [place] [address] Historical LMR Provider 07/06/17 2 She Winkler MD [address] [place] [address] [email or web address] Historical LMR Provider 07/06/17 09/26/21 Gallo Harvey MD [address] [place] [address] Historical LMR Provider 07/06/17 2 documented as of this encounter Additional Source Comments The information contained in this document represents components of the legal health record. It is not the complete legal health record.[facility]
--- OUTSIDE RECORDS SUMMARY | 2025-06-06 08:14 | XMS_ITS | Encounter Summary ---
Author Organization [facility] Address [address] [place] [address] [place] [address] Phone Care Team Providers Care Tab Cutter Name Role Phone Name, Brandon FUNEZ Primary Care Provider Eugenia Lopez BRAN MIXER Unavailable [phone] Bertha Meléndez MD Unavailable Radha Desouza BRAN MIXER Unavailable [phone] Abdirahman De La O MD Unavailable [phone] Rashida Concepcion RDCS Unavailable [email or web address] Name, Brandon FUNEZ Unavailable She Winkler MD Unavailable [phone] Gallo Harvey MD Unavailable [phone] Reason for Referral * MRI/CAT Scan - Closed Specialty Diagnoses / Procedures Referred By Hunter t Referred To Contact Radiology Diagnoses Arteriovenous malformation (AVM) of kidney Procedures MRI Abdomen Pricila Honeycutt MD Phone: tel: fax: Referral ID Status Reason Start Date Expiration Date Visits Re quested Visits Authorized [id number] Closed 06/15/2018 08/13/2018 1 1 Encounter Details Date Type Department Care Team (Latest Contact Info) Description 06/13/2018 Ancillary Orders [facility] [address] [facility], 7th Floor, [address] [place] [address] Pricila Honeycutt MD [address] [facility] [place] [address] Arteriovenous malformation (AVM) of kidney Social History Tobacco Use Types Packs/Day [...] of this encounter Results * MRI ABDOMEN WITH AND WITHOUT CONTRAST (06/30/2018 8:30 AM EDT) Anatomical Region Laterality Modality Abdomen Magnetic Resonan ce 06/30/2018 12:4 4 PM EDT Impressions 06/30/2018 12:57 PM EDT No appreciable change in the large fat-containing left renal mass, presumably angiomyolipoma, since 06/09/2017. No new upper abdominal pathology. POS [id number] Narrative 06/30/2018 12:57 PM EDT TECHNIQUE: 1.5 Maribeth scanner. Multiplanar/multisequence exam without and with IV gadolinium contrast. Compare 06/09/2017 FINDINGS: The large, multilobulated, heterogeneous mass arising from the anterior upper left kidney has not changed appreciably measuring about 8.5 x 6.7 x 8.0 cm (AP x TV x CC). The mass displaces the adjacent spleen, bowel and pancreas without evidence of invasion of any of the surrounding organs. The mid and lower pole of the left kidney remain normal in appearance. A 3.4 cm simple cyst in the right kidney is unchanged. No solid right renal masses. No hydronephrosis or perinephric infiltrative changes/fluid collections. Liver, gallbladder, biliary tree, pancreas, spleen and adrenals remain normal in appearance. No adenopathy or ascites. No pleural effusion. No gross nodules in the visualized lung bases. Procedure Note Jamison Sherwood MD - 06/30/2018 TECHNIQUE: 1.5 Maribeth scanner. Multiplanar/multisequence exam without and with IV gadolinium contrast. Compare 06/09/2017 FINDINGS: The large, multilobulated, heterogeneous mass arising from the anteriorupper left kidney has not changed appreciably measuring about 8.5 x 6.7 x8.0 cm (AP x TV x CC). The mass displaces the adjacent spleen, bowel and pancreas withoutevidence of invasion of any of the surrounding organs. The mid and lower pole of the left kidney remain normal in appearance. A 3.4 cm simple cyst in the right kidney is unchanged. No solid rightrenal masses. No hydronephrosis or perinephric infiltrative changes/fluid collections. Liver, gallbladder, biliary tree, pancreas, spleen and adrenals remainnormal in appearance. No adenopathy or ascites. No pleural effusion. No gross nodules in the visualized lung bases. IMPRESSION: No appreciable change in the large fat-containing left renal mass,presumably angiomyolipoma, since 06/09/2017. No new upper abdominalpathology. 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 documented in this encounter Care Teams Tab Cutter Relationship Specialty Start Date End Date Name, MD Brandon [address] [place] [address] PCP - General Internal Medicine 08/23/14 Eugenia Lopez NP [address] [place] [address] Historical LMR Provider 07/06/17 2 Bertha Meléndez MD [address] [place] [address], [address] [place] [address] Historical LMR Provider 07/06/17 09/26/21 Radha Desouza NP [address] [place] [address] Historical LMR Provider 07/06/17 2 Abdirahman De La O MD [address] [address] Historical LMR Provider 07/06/17 09/26/21 Rashida Concepcion, [facility] Historical LMR Provider 07/06/17 09/26/21 Brandon Kilgore MD [address] [place] [address] Historical LMR Provider 07/06/17 2 She Winkler MD [address] [address] Historical LMR Provider 07/06/17 09/26/21 Gallo Harvey MD [address] [place] [address] Historical LMR Provider 07/06/17 2 documented as of this encounter Additional Source Comments The information contained in this document represents components of the legal health record. It is not the complete legal health record.[facility]
--- OUTSIDE RECORDS SUMMARY | 2025-06-06 08:14 | XMS_ITS | Encounter Summary ---
Author Organization [facility] Address [facility] [address] [place] [address] Phone Care Team Providers Care Salvage Diver Name Role Phone Name, Brandon FUNEZ Primary Care Provider [phone] Eugenia Lopez KNOCKOUT WORKER Unavailable [phone] Bertha Meléndez MD Unavailable Radha Desouza KNOCKOUT WORKER Unavailable [phone] Abdirahman De La O MD Unavailable [phone] Unavailable [email or web address] Name, Brandon FUNEZ Unavailable She Winkler MD Unavailable [phone] Gallo Harvey MD Unavailable [phone] Encounter Details Date Type Department Care Team (Late st Contact Info) Description 06/13/2018 Procedure Pass [address] [address] Social History Tobacco Use Types Packs/Day Years [...] on filedocumented in this encounter Care Teams Salvage Diver Relationship Specialty Start Date End Date Name, MD Brandon [address] [place] [address] PCP - General Internal Medicine 08/23/14 Eugenia Lopez NP [address] [place] [address] Historical LMR Provider 07/06/17 2 Bertha Meléndez MD [address] [address] Historical LMR Provider 07/06/17 09/26/21 Radha Desouza NP [address] [place] [address] Historical LMR Provider 07/06/17 2 Abdirahman De La O MD [address] [address] Historical LMR Provider 07/06/17 09/26/21 Rashida Concepcion, [facility] Historical LMR Provider 07/06/17 09/26/21 Name, MD Brandon [address] [place] [address] Historical LMR Provider 07/06/17 2 She Winkler MD [address] [place] [address] Historical LMR Provider 07/06/17 09/26/21 Gallo Harvey MD [address] [place] [address] Historical LMR Provider 07/06/17 2 documented as of this encounter Additional Source Comments The information contained in this document represents components of the legal health record. It is not the complete legal health record.[facility]
--- OUTSIDE RECORDS SUMMARY | 2025-06-06 08:14 | XMS_ITS | Encounter Summary ---
Author Organization [facility] Address [address] [place] [address] [place] [address] Phone Care Team Providers Care Firing Pin Gauger Name Role Phone Name, Brandon FUNEZ Primary Care Provider [phone] Eugenia Lopez RN OPERATING ROOM Unavailable [phone] Bertha Meléndez MD Unavailable Radha Desouza RN OPERATING ROOM Unavailable [phone] Abdirahman De La O MD Unavailable [phone] Rashida Concepcion RDCS Unavailable [email or web address] Name, Brandon FUNEZ Unavailable She Winkler MD Unavailable [phone] Gallo Harvey MD Unavailable [phone] Reason for Referral * MRI/CAT Scan - Closed Specialty Diagnoses / Procedures Referred By Hunter pineda Referred To Contact Radiology Diagnoses Angiomyolipoma of left kidney Procedures MRI Abdomen Pricila Honeycutt MD Phone: tel: fax: Referral ID Status Reason Start Date Expiration Date Visits Re quested Visits Authorized [id number] Closed 07/06/2019 09/03/2019 1 1 Encounter Details Date Type Department Care Team (Latest Contact Info) Description 07/03/[address] [facility] [address] [facility], 7th Floor, [address] [place] [address] Pricila Honeycutt MD [address] [facility] [place] [address] Angiomyolipoma of left kidney Social History Tobacco [...] * MRI ABDOMEN WITH AND WITHOUT CONTRAST (07/10/2019 10:08 AM EDT) Anatomical Region Laterality Modality Abdomen Magnetic Resonan ce 07/10/2019 10:3 9 AM EDT Impressions 07/10/2019 11:10 AM EDT Mild increase in size of the large left renal angiomyolipoma since 06/30/2018. No other significant changes. POS [id number] Narrative 07/10/2019 11:10 AM EDT HISTORY: Follow-up left renal angiomyolipoma, abnormal previous exam. COMPARISON: MRI abdomen exams 06/30/2018 and 06/09/2017. CT abdomen 07/04/2008. TECHNIQUE: Exam performed on a 1.5 Maribeth high-field MRI scanner. Axial T1 in and out of phase, T2, extended TE T2, and T1 with fat suppression, coronal T2, followed by post-gadolinium multi-phase axial T1 series with fat suppression sequences were obtained through the liver. FINDINGS: Liver/spleen: Scattered subcentimeter T2 hyperintense lesions within the liver consistent with cysts, are stable. Liver otherwise appears normal. Spleen appears normal. Pancreas/biliary tree: Pancreas appears normal. No evidence of biliary ductal dilatation. Adrenals: No evidence of significant abnormalities. Kidneys: The exophytic mass containing fat components within the left kidney consistent with an angiomyolipoma is mildly increased in size. It measures approximately 9.3 cm x 7.9 cm x 7.3 cm (AP x cc x trv). This compares with approximately 8.4 cm x 7.3 cm x 6.6 cm, respectively on 06/30/2018. Similar enhancing septations and capsule. No significant change in exophytic 3 cm cyst within the interpolar region of the right kidney. Stable subcentimeter parapelvic cyst within the left kidney and tiny cyst in the lower pole of the right kidney. No pelvocaliectasis. Bilateral excretion of contrast again demonstrated from the kidneys. Proximal ureters are normal in caliber. Lymph node/lymphatics: No evidence of measurable lymphadenopathy. Cardiovascular: No significant changes. Procedure Note Giles Zamudio MD - 07/10/2019 HISTORY: Follow-up left renal angiomyolipoma, abnormal previous exam. COMPARISON: MRI abdomen exams 06/30/2018 and 06/09/2017. CT [id number]/2008. TECHNIQUE: Exam performed on a 1.5 Maribeth high-field MRI scanner. Axial T1in and out of phase, T2, extended TE T2, and T1 with fat suppression,coronal T2, followed by post-gadolinium multi-phase axial T1 series withfat suppression sequences were obtained through the liver. FINDINGS: Liver/spleen: Scattered subcentimeter T2 hyperintense lesions within theliver consistent with cysts, are stable. Liver otherwise appears normal.Spleen appears normal. Pancreas/biliary tree: Pancreas appears normal. No evidence of biliaryductal dilatation. Adrenals: No evidence of significant abnormalities. Kidneys: The exophytic mass containing fat components within the leftkidney consistent with an angiomyolipoma is mildly increased in size. Itmeasures approximately 9.3 cm x 7.9 cm x 7.3 cm (AP x cc x trv). Thiscompares with approximately 8.4 cm x 7.3 cm x 6.6 cm, respectively on06/30/2018. Similar enhancing septations and capsule. No significantchange in exophytic 3 cm cyst within the interpolar region of the rightkidney. Stable subcentimeter parapelvic cyst within the left kidney andtiny cyst in the lower pole of the right kidney. No pelvocaliectasis.Bilateral excretion of contrast again demonstrated from the kidneys.Proximal ureters are normal in caliber. Lymph node/lymphatics: No evidence of measurable lymphadenopathy. Cardiovascular: No significant changes. IMPRESSION: Mild increase in size of the large left renal angiomyolipoma since06/30/2018. No other significant changes. 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 documented in this encounter Care Teams Firing Pin Gauger Relationship Specialty Start Date End Date Name, MD Brandon [address] [place] [address] PCP - General Internal Medicine 08/23/14 Eugenia Lopez NP [address] [place] [address] Historical LMR Provider 07/06/17 2 Bertha Meléndez MD [address] [place] [address] Historical LMR Provider 07/06/17 09/26/21 Radha Desouza NP [address] [place] [address] Historical LMR Provider 07/06/17 2 Abdirahman De La O MD [address] [place] [address] Historical LMR Provider 07/06/17 09/26/21 Rashida Concepcion RDCS Historical LMR Provider 07/06/17 09/26/21 Magui, MD Brandon [address] [place] [address] Historical LMR Provider 07/06/17 2 She Winkler MD [address] [place] [address] [email or web address] Historical LMR Provider 07/06/17 09/26/21 Gallo Harvey MD [address] [place] [address] Historical LMR Provider 07/06/17 2 documented as of this encounter Additional Source Comments The information contained in this document represents components of the legal health record. It is not the complete legal health record.[facility]
== END 2025-06-06 08:04 | disposition home or self-care (01) ==
LOC: HO.MAMMO 08:03
PROVIDERS: PCP Internal Medicine Geriatric Medicine; Visit Provider Internal Medicine Geriatric Medicine
DX: Z12.31 Encounter for screening mammogram for malignant neoplasm of breast (principal)
CPT/HCPCS: 77063; 77067

== ENCOUNTER → 2025-06-06 08:15 | Outpatient (BNV) | payer BC, SELFPAY | PROVIDERS: PCP Internal Medicine Geriatric Medicine; Visit Provider Internal Medicine | DX: Z12.31 Encounter for screening mammogram for malignant neoplasm of breast (principal) | CPT/HCPCS: 77063; 77067 ==